=== PATIENT | female | born 1970 | race Caucasian/White ===

== ENCOUNTER → 2016-11-09 | Outpatient (CLI) | payer OTHER | END | disposition home or self-care (01) | LOC: LABWHC1 15:41 | PROVIDERS: ATTEND Nurse Practitioner Family | DX: Z51.81 Encounter for therapeutic drug level monitoring (principal); Z79.899 Other long term (current) drug therapy | CPT/HCPCS: 36415; 84146 ==

== ENCOUNTER → 2017-02-26 | Outpatient (CLI) | payer OTHER ==
--- NOTE | 2017-02-26 17:44 | CT ---
EXAMINATION TYPE: CT abdomen pelvis w con DATE OF EXAM: 02/26/2017 5:35 PM COMPARISON: NONE HISTORY: Elevated liver enzymes and elevated prolactin levels. CT DLP: 1088.00 mGycm CONTRAST: CT scan of the abdomen and pelvis is performed with Oral Contrast and with IV Contrast, patient injec sally with 100 mL of Omnipaque 300. FINDINGS: LUNG BASES-: No visible nodule. No infiltrate. LIVER/GB: Cholecystectomy clips are in place. No space occupying hepatic lesion. Biliary tree is o f normal caliber. PANCREAS: No inflammation. No distinct mass. SPLEEN: No splenic enlargement. No lesion seen. ADRENALS: No nodule. No thickening. KIDNEYS/BLADDER: No hydronephrosis. No nephrolithiasis. No disctinct renal mass. Urinary bladder g rossly unremarkable. BOWEL: Normal appendix. Normal bowel caliber. No inflammation. GENITAL ORGANS: No gross abnormality. LYMPH NODES: No greater than 1cm abdominal or pelvic lymph nodes are appreciated. AORTA: No significant abnormality. OSSEOUS STRUCTURES: No significant abnormality is seen. OTHER: Fat-containing left inguinal hernia. IMPRESSION: 1. No significant abnormality to account for the patient's symptoms.
== END ==
LOC: RADCTMAIN 15:23
PROVIDERS: ATTEND Family Medicine
DX: R74.8 Abnormal levels of other serum enzymes (principal); E22.9 Hyperfunction of pituitary gland, unspecified
CPT/HCPCS: 80156; 74177; 36415; Q9967

== ENCOUNTER → 2017-06-21 | Outpatient (CLI) | payer OTHER | END | disposition home or self-care (01) | LOC: LABWHC1 13:07 | PROVIDERS: ATTEND Nurse Practitioner Family | DX: Z51.81 Encounter for therapeutic drug level monitoring (principal); Z79.899 Other long term (current) drug therapy | CPT/HCPCS: 36415; 84146 ==

== ENCOUNTER 2018-02-20 09:58 | Emergency (ER) | payer OTHER ==
[2018-02-20 10:06] VITALS: BP 152/73; PULSE 80; RESP 18; TEMP 97.2
--- NOTE | 2018-02-20 10:32 | ED ---
Fall HPI - General Chief Complaint: Fall Stated Complaint: Fall Time Seen by Provider: 02/20/18 10:10 Source: patient Mode of arrival: EMS - History of Present Illness Initial Comments: This is a 47-year-old female who states she tripped and fell on a sidewalk just prior to admission. She complains of pain to the right knee but no other injury she denies any head neck or back pain at this time. She thought she may have hit her right elbow but complains no pain right now. She also complains not being able sleep well she states her medications were recently changed at [facility] she's not been able to get a hold of a counselor. She denies any head neck back pain or other symptoms at this time no other contributory factors. MD Complaint: fall - Related Data Home Medications Medication Instructions Recorded Confirmed risperiDONE 2 mg PO HS 06/06/16 02/20/18 risperiDONE 3 mg PO QAM 06/06/16 02/20/18 traZODone HCL 300 mg PO HS 06/06/16 02/20/18 Albuterol Inhaler [Ventolin Hfa 1 - 2 puff INHALATION RT-QID PRN 02/20/18 Inhaler] Bromocriptine Mesylate 2.5 mg PO HS 02/20/18 02/20/18 Lisinopril [Zestril] 10 mg PO DAILY 02/20/18 02/20/18 Oxybutynin Xl [Ditropan Xl] 5 mg PO BID 02/20/18 02/20/18 carBAMazepine [carBAMazepine ER] 300 mg PO BID 02/20/18 02/20/18 Previous Rx's Medication Instructions Recorded Ibuprofen [Motrin] 600 mg PO Q6HR PRN #20 tab 02/20/18 Allergies Allergy/AdvReac Type Severity Reaction Status Date / Time acetaminophen [From Tylenol] Allergy Rash/Hives Verified 02/20/18 10:13 Penicillins Allergy Rash/Hives Verified 02/20/18 10:13 Review of Systems ROS Statement: Those systems with pertinent positive or pertinent negative responses have been documented in the HPI. ROS Other: All systems not noted in ROS Statement are negative. Past Medical History Past Medical History: Asthma History of Any Multi-Drug Resistant Organisms: None Reported Past Surgical History: Section Past Psychological History: Schizophrenia Smoking Status: Current every day smoker Past Alcohol Use History: None Reported Past Drug Use History: None Reported General Exam - General Exam Comments Initial Comments: This is a well-developed well-nourished awake alert oriented 3 female she does demonstrate a Phil Coma Scale of 15 Limitations: no limitations General appearance: alert, anxious Head exam: Present: atraumatic, normocephalic, normal inspection Eye exam: Present: normal appearance, PERRL, EOMI. Absent: scleral icterus, conjunctival injection, periorbital swelling ENT exam: Present: normal exam, mucous membranes moist Neck exam: Present: normal inspection. Absent: tenderness, meningismus, lymphadenopathy Respiratory exam: Absent: respiratory distress, wheezes, rales, rhonchi, stridor , chest wall tenderness Cardiovascular Exam: Absent: systolic murmur, diastolic murmur, rubs, gallop, clicks GI/Abdominal exam: Absent: distended, tenderness, guarding, rebound, rigid Extremities exam: Present: full ROM, tenderness, normal capillary refill, other (Abrasion seen over the right patella no formed by seen some localized edema noted. No trauma proximal or distal to this area.). Absent: pedal edema, joint swelling, calf tenderness Back exam: Present: full ROM. Absent: tenderness Neurological exam: Present: alert, oriented X3, CN II-XII intact Psychiatric exam: Present: normal affect, anxious Skin exam: Present: warm, dry, normal color. Absent: rash Course Vital Signs 02/20/18 10:00 Temperature 97.2 F L Pulse Rate 80 Respiratory 18 Rate Blood Pressure 152/73 O2 Sat by Pulse 96 Oximetry Medical Decision Making - Medical Decision Making The patient will have a dressing applied to the knee no further workup is indicated she'll be discharged shots are up-to-date she had her last one about 2 years ago. She is to follow-up with [facility] for medication evaluation - Radiology Data Radiology results: report reviewed (I did review the imaging and report no acute findings.), image reviewed Disposition Clinical Impression: Abrasion of knee, right, Contusion of knee, right, Fall Disposition: HOME SELF-CARE Condition: Good Instructions: Fall Prevention for Older Adults (ED), Abrasion (ED), Contusion in Adults (ED) Prescriptions: Ibuprofen [Motrin] 600 mg PO Q6HR PRN #20 tab PRN Reason: Pain Is patient prescribed a controlled substance at discharge?: No Referrals: Jack Dao MD [Primary Care Provider] - 1-2 days
--- NOTE | 2018-02-20 10:48 | XR ---
Right knee HISTORY: Abrasion, trauma and pain 4 views of the right knee Bone mineralization, joint spaces and alignment are maintained. Suprapatellar increased density could represent a small effusion. Suspect soft tissue swelling. IMPRESSION: No fracture or dislocation.
== END 2018-02-20 11:37 | disposition home or self-care (01) ==
LOC: EC 09:58
DX: S80.01XA Contusion of right knee, initial encounter (principal); R40.2412 Glasgow coma scale score 13-15, at arrival to emergency department; F41.9 Anxiety disorder, unspecified; F20.9 Schizophrenia, unspecified; F17.200 Nicotine dependence, unspecified, uncomplicated; Z79.899 Other long term (current) drug therapy; Z88.0 Allergy status to penicillin; Z88.8 Allergy status to other drugs, medicaments and biological substances; W01.0XXA Fall on same level from slipping, tripping and stumbling without subsequent striking against object, initial encounter; Y92.480 Sidewalk as the place of occurrence of the external cause
CPT/HCPCS: 99283

== ENCOUNTER 2018-05-15 12:17 | Emergency (ER) | payer OTHER ==
--- NOTE | 2018-05-15 12:59 | ED ---
General Adult HPI - General Chief complaint: Anxiety Stated complaint: Anxiety Time Seen by Provider: 05/15/18 12:23 Source: patient, RN notes reviewed Mode of arrival: EMS Limitations: no limitations - History of Present Illness Initial comments: Patient 47-year-old female significant past medical history for bipolar, presented to the emergency room today by EMS for anxiety. She states that she was waiting for her boyfriend to get out of a meeting. She states that also and she felt increased warmth and was crying. Patient states she feels fine at this time. She states that she was not upset anybody. Patient boyfriend at bedside providing further history stating that she has been having symptoms similar to this off and on now for several months. They have been trying to talk to [facility] about this. Patient denies any suicidal or homicidal thoughts or plans. She denies any other complaints currently. She states she feels complete fine at this time. Boyfriend states unsure if it's related to medications that they need to be adjusted. States that they would like to have psych evaluation. Patient denies any recent fever, chills, shortness of breath , chest pain, back pain, abdominal pain, nausea or vomiting, numbness or tingling, dysuria or hematuria, constipation or diarrhea, headaches or visual changes, or any other complaints. - Related Data Home Medications Medication Instructions Recorded Confirmed risperiDONE 2 mg PO HS 06/06/16 05/15/18 risperiDONE 3 mg PO QAM 06/06/16 05/15/18 traZODone HCL 300 mg PO HS 06/06/16 05/15/18 Albuterol Inhaler [Ventolin Hfa 1 - 2 puff INHALATION RT-QID PRN 02/20/18 Inhaler] Bromocriptine Mesylate 5 mg PO HS 02/20/18 05/15/18 Lisinopril [Zestril] 10 mg PO DAILY 02/20/18 05/15/18 Oxybutynin Xl [Ditropan Xl] 5 mg PO BID 02/20/18 05/15/18 Allergies Allergy/AdvReac Type Severity Reaction Status Date / Time acetaminophen [From Tylenol] Allergy Rash/Hives Verified 05/15/18 12:41 Penicillins Allergy Rash/Hives Verified 05/15/18 12:41 Review of Systems ROS Statement: Those systems with pertinent positive or pertinent negative responses have been documented in the HPI. ROS Other: All systems not noted in ROS Statement are negative. Past Medical History Past Medical History: Asthma History of Any Multi-Drug Resistant Organisms: None Reported Past Surgical History: Section Past Psychological History: Bipolar, Schizophrenia Smoking Status: Current every day smoker Past Alcohol Use History: None Reported Past Drug Use History: None Reported General Exam - General Exam Comments Initial Comments: General: The patient is awake and alert, in no distress, and does not appear acutely ill. Eye: Pupils are equal, round and reactive to light, extra-ocular movements are intact. No nystagmus. There is normal conjunctiva bilaterally. No signs of icterus. Ears, nose, mouth and throat: There are moist mucous membranes and no oral lesions. Neck: The neck is supple, there is no tenderness or JVD. Cardiovascular: There is a regular rate and rhythm. No murmur, rub or gallop is appreciated. Respiratory: Lungs are clear to auscultation, respirations are non-labored, breath sounds are equal. No wheezes, stridor, rales, or rhonchi. Musculoskeletal: Normal ROM, no tenderness. Strength 5/5. Sensation intact. Pulses equal bilaterally 2+. Neurological: A&O x 3. CN II-XII intact, There are no obvious motor or sensory deficits. Coordination appears grossly intact. Speech is normal. Skin: Skin is warm and dry and no rashes or lesions are noted. Psychiatric: Cooperative Limitations: no limitations Course Vital Signs 05/15/18 12:24 Pulse Rate 57 L Respiratory 18 Rate Blood Pressure 111/58 O2 Sat by Pulse 95 Oximetry Medical Decision Making - Medical Decision Making Patient's labs been reviewed. Patient was seen by mental health here in emergency room. They recommend that patient can follow up outpatient. Patient advised to return for any other concerns. - Lab Data Result diagrams: 05/15/18 13:20 05/15/18 13:20 Lab Results 05/15/18 05/15/18 05/15/18 Range/Units 13:13 13:13 13:20 WBC 7.3 (3.8-10.6) k/uL RBC 4.41 (3.80-5.40) m/uL Hgb 14.7 (11.4-16.0) gm/dL Hct 43.8 (34.0-46.0) % MCV 99.4 (80.0-100.0) fL MCH 33.3 (25.0-35.0) pg MCHC 33.5 (31.0-37.0) g/dL RDW 13.2 (11.5-15.5) % Plt Count 230 (150-450) k/uL Neutrophils % 67 % Lymphocytes % 24 % Monocytes % 6 % Eosinophils % 2 % Basophils % 0 % Neutrophils # 4.9 (1.3-7.7) k/uL Lymphocytes # 1.7 (1.0-4.8) k/uL Monocytes # 0.4 (0-1.0) k/uL Eosinophils # 0.1 (0-0.7) k/uL Basophils # 0.0 (0-0.2) k/uL Sodium (137-145) mmol/L Potassium (3.5-5.1) mmol/L Chloride (98-107) mmol/L Carbon Dioxide (22-30) mmol/L Anion Gap mmol/L BUN (7-17) mg/dL Creatinine (0.52-1.04) mg/dL Est GFR (CKD-EPI)AfAm (>60 ml/min/1.73 sqM) Est GFR (CKD-EPI)NonAf (>60 ml/min/1.73 sqM) Glucose (74-99) mg/dL Calcium (8.4-10.2) mg/dL Total Bilirubin (0.2-1.3) mg/dL AST (14-36) U/L ALT (9-52) U/L Alkaline Phosphatase (38-126) U/L Total Protein (6.3-8.2) g/dL Albumin (3.5-5.0) g/dL Urine Color Light Yellow Urine Appearance Cloudy H (Clear) Urine pH 6.0 (5.0-8.0) Ur Specific [place] 1.007 (1.001-1.035) Urine Protein Negative (Negative) Urine Glucose (UA) Negative (Negative) Urine Ketones Negative (Negative) Urine Blood Small H (Negative) Urine Nitrite Negative (Negative) Urine Bilirubin Negative (Negative) Urine Urobilinogen <2.0 (<2.0) mg/dL Ur Leukocyte Esterase Negative (Negative) Urine RBC <1 (0-5) /hpf Urine WBC 2 (0-5) /hpf Ur Squamous Epith Cells 5 H (0-4) /hpf Urine Bacteria Rare H (None) /hpf Urine Mucus Rare H (None) /hpf Urine HCG, Qual Not Detected (Not Detectd) Urine Opiates Screen Not Detected (NotDetected) Ur Oxycodone Screen Not Detected (NotDetected) Urine Methadone Screen Not Detected (NotDetected) Ur Propoxyphene Screen Not Detected (NotDetected) Ur Barbiturates Screen Not Detected (NotDetected) U Tricyclic Antidepress Not Detected (NotDetected) Ur Phencyclidine Scrn Not Detected (NotDetected) Ur Amphetamines Screen Not Detected (NotDetected) U Methamphetamines Scrn Not Detected (NotDetected) U Benzodiazepines Scrn Not Detected (NotDetected) Urine Cocaine Screen Not Detected (NotDetected) U Marijuana (THC) Screen Not Detected (NotDetected) 05/15/18 Range/Units 13:20 WBC (3.8-10.6) k/uL RBC (3.80-5.40) m/uL Hgb (11.4-16.0) gm/dL Hct (34.0-46.0) % MCV (80.0-100.0) fL MCH (25.0-35.0) pg MCHC (31.0-37.0) g/dL RDW (11.5-15.5) % Plt Count (150-450) k/uL Neutrophils % % Lymphocytes % % Monocytes % % Eosinophils % % Basophils % % Neutrophils # (1.3-7.7) k/uL Lymphocytes # (1.0-4.8) k/uL Monocytes # (0-1.0) k/uL Eosinophils # (0-0.7) k/uL Basophils # (0-0.2) k/uL Sodium 138 (137-145) mmol/L Potassium 4.4 (3.5-5.1) mmol/L Chloride 111 H (98-107) mmol/L Carbon Dioxide 20 L (22-30) mmol/L Anion Gap 7 mmol/L BUN 12 (7-17) mg/dL Creatinine 0.80 (0.52-1.04) mg/dL Est GFR (CKD-EPI)AfAm >90 (>60 ml/min/1.73 sqM) Est GFR (CKD-EPI)NonAf 88 (>60 ml/min/1.73 sqM) Glucose 100 H (74-99) mg/dL Calcium 9.2 (8.4-10.2) mg/dL Total Bilirubin 0.3 (0.2-1.3) mg/dL AST 16 (14-36) U/L ALT 25 (9-52) U/L Alkaline Phosphatase 62 (38-126) U/L Total Protein 6.5 (6.3-8.2) g/dL Albumin 4.1 (3.5-5.0) g/dL Urine Color Urine Appearance (Clear) Urine pH (5.0-8.0) Ur Specific [place] (1.001-1.035) Urine Protein (Negative) Urine Glucose (UA) (Negative) Urine Ketones (Negative) Urine Blood (Negative) Urine Nitrite (Negative) Urine Bilirubin (Negative) Urine Urobilinogen (<2.0) mg/dL Ur Leukocyte Esterase (Negative) Urine RBC (0-5) /hpf Urine WBC (0-5) /hpf Ur Squamous Epith Cells (0-4) /hpf Urine Bacteria (None) /hpf Urine Mucus (None) /hpf Urine HCG, Qual (Not Detectd) Urine Opiates Screen (NotDetected) Ur Oxycodone Screen (NotDetected) Urine Methadone Screen (NotDetected) Ur Propoxyphene Screen (NotDetected) Ur Barbiturates Screen (NotDetected) U Tricyclic Antidepress (NotDetected) Ur Phencyclidine Scrn (NotDetected) Ur Amphetamines Screen (NotDetected) U Methamphetamines Scrn (NotDetected) U Benzodiazepines Scrn (NotDetected) Urine Cocaine Screen (NotDetected) U Marijuana (THC) Screen (NotDetected) Disposition Clinical Impression: Acute anxiety Disposition: HOME SELF-CARE Condition: Good Instructions: Generalized Anxiety Disorder (ED) Additional Instructions: Please follow-up with H/family doctor in the next 2 days of symptoms have not improved. Please return to emergency room if the symptoms increase or worsen or for any other concerns. Is patient prescribed a controlled substance at d/c from ED?: No Referrals: Jack Dao MD [Primary Care Provider] - 1-2 days Time of Disposition: 16:36
[2018-05-15 13:23] LABS: Appearance,Urine Cloudy (Clear); Bacteria,Urine Rare /hpf; Bilirubin,Urine Negative (Negative); Blood,Urine Small (Negative); Color,Urine Light Yellow; Glucose,Urine (UA) Negative (Negative); Ketones,Urine Negative (Negative); Leukocyte Esterase,Urine Negative (Negative); Mucus,Urine Rare /hpf; Nitrite,Urine Negative (Negative); Protein,Urine Negative (Negative); RBC,Urine <1 /hpf (0-5); Specific Gravity,Urine 1.007 (1.001-1.035); Squamous Epithelial Cell,Urine 5 /hpf (0-4); Urobilinogen,Urine <2.0 mg/dL (<2.0); WBC,Urine 2 /hpf (0-5)
[2018-05-15 13:31] LABS: Amphetamine Screen,Urine Not Detected (NotDetected); Barbiturate Screen,Urine Not Detected (NotDetected); Benzodiazepines Screen,Urine Not Detected (NotDetected); Cocaine Screen,Urine Not Detected (NotDetected); Methadone Screen, Urine Not Detected (NotDetected); Opiate Screen,Urine Not Detected (NotDetected); Oxycodone Screen, Urine Not Detected (NotDetected); Phencyclidine Screen,Urine Not Detected (NotDetected); Tricyclic Antidepressant,Urine Not Detected (NotDetected); Urn Cannabinoid Scrn Not Detected (NotDetected)
[2018-05-15 13:33] LABS: Basophils % (A) 0 %; Eosinophils # (A) 0.1 k/uL (0-0.7); Eosinophils % (A) 2 %; HCT 43.8 % (34.0-46.0); HGB 14.7 gm/dL (11.4-16.0); Lymphocytes # (A) 1.7 k/uL (1.0-4.8); Lymphocytes % (A) 24 %; MCH 33.3 pg (25.0-35.0); MCHC 33.5 g/dL (31.0-37.0); MCV 99.4 fL (80.0-100.0); Mean Platelet Volume 6.8; Monocytes # (A) 0.4 k/uL (0-1.0); Monocytes % (A) 6 %; Neutrophils # (A) 4.9 k/uL (1.3-7.7); Neutrophils % (A) 67 %; Platelet Count 230 k/uL (150-450); RBC 4.41 m/uL (3.80-5.40); RDW 13.2 % (11.5-15.5); WBC 7.3 k/uL (3.8-10.6)
[2018-05-15 13:52] LABS: Anion Gap 7 mmol/L; Blood Urea Nitrogen 12 mg/dL (7-17); Carbon Dioxide 20 mmol/L (22-30); Chloride 111 mmol/L (98-107); Glucose 100 mg/dL (74-99); Potassium 4.4 mmol/L (3.5-5.1); Sodium 138 mmol/L (137-145)
[2018-05-15 13:53] LABS: ALT 25 U/L (9-52); AST 16 U/L (14-36); Albumin 4.1 g/dL (3.5-5.0); Alkaline Phosphatase 62 U/L (38-126); Calcium 9.2 mg/dL (8.4-10.2); Total Bilirubin 0.3 mg/dL (0.2-1.3); Total Protein 6.5 g/dL (6.3-8.2)
[2018-05-15 16:59] VITALS: BP 135/63; PULSE 69; RESP 16; TEMP 97
== END 2018-05-15 17:00 | disposition home or self-care (01) ==
LOC: EC 12:17
DX: F41.9 Anxiety disorder, unspecified (principal); F31.9 Bipolar disorder, unspecified; F20.9 Schizophrenia, unspecified; J45.909 Unspecified asthma, uncomplicated; F17.200 Nicotine dependence, unspecified, uncomplicated; Z79.899 Other long term (current) drug therapy; Z88.0 Allergy status to penicillin; Z88.8 Allergy status to other drugs, medicaments and biological substances
CPT/HCPCS: 36415; 80053; 80306; 81001; 81025; 82075; 85025; 93005; 99284

== ENCOUNTER 2018-07-03 17:30 | Emergency (ER) | payer OTHER ==
[2018-07-03 17:39] VITALS: RESP 18
[2018-07-03 18:07] LABS: Basophils % (A) 0 %; Eosinophils # (A) 0.2 k/uL (0-0.7); Eosinophils % (A) 2 %; HCT 43.3 % (34.0-46.0); HGB 14.3 gm/dL (11.4-16.0); Lymphocytes # (A) 2.3 k/uL (1.0-4.8); Lymphocytes % (A) 29 %; MCH 32.3 pg (25.0-35.0); MCHC 33.1 g/dL (31.0-37.0); MCV 97.6 fL (80.0-100.0); Mean Platelet Volume 6.8; Monocytes # (A) 0.3 k/uL (0-1.0); Monocytes % (A) 4 %; Neutrophils # (A) 4.9 k/uL (1.3-7.7); Neutrophils % (A) 63 %; Platelet Count 267 k/uL (150-450); RBC 4.43 m/uL (3.80-5.40); RDW 12.8 % (11.5-15.5); WBC 7.8 k/uL (3.8-10.6)
[2018-07-03 18:15] LABS: INR 1.1 (<1.2); Prothrombin Time 10.5 sec (9.0-12.0)
[2018-07-03 18:19] LABS: ALT 33 U/L (9-52); AST 29 U/L (14-36); Albumin 4.1 g/dL (3.5-5.0); Alkaline Phosphatase 63 U/L (38-126); Anion Gap 9 mmol/L; Blood Urea Nitrogen 11 mg/dL (7-17); Carbon Dioxide 24 mmol/L (22-30); Chloride 107 mmol/L (98-107); Glucose 96 mg/dL (74-99); Magnesium 2.1 mg/dL (1.6-2.3); Potassium 3.8 mmol/L (3.5-5.1); Sodium 140 mmol/L (137-145); Total Bilirubin 0.4 mg/dL (0.2-1.3); Total Protein 6.9 g/dL (6.3-8.2)
[2018-07-03 18:25] LABS: Creatine Kinase 129 U/L (30-135)
[2018-07-03 18:36] LABS: Creatine Kinase MB 1.4 ng/mL (0.0-2.4); Troponin I <0.012 ng/mL (0.000-0.034)
--- NOTE | 2018-07-03 19:36 | ED ---
General Adult HPI - General Chief complaint: Chest Pain Stated complaint: chest pain Time Seen by Provider: 07/03/18 19:17 Source: patient, RN notes reviewed, old records reviewed Mode of arrival: EMS Limitations: no limitations - History of Present Illness Initial comments: This is a [id number] female the ER today. This patient presents today for evaluation regards to chest pain. Patient admits to chest pain after stressful event. Patient argument with boyfriend her today, patient states she is Very stressed out and began to experience chest pain. No shortness of breath no nausea vomiting no diaphoresis. No prior history of similar chest pain or heart disease - Related Data Home Medications Medication Instructions Recorded Confirmed risperiDONE 2 mg PO HS 06/06/16 05/15/18 risperiDONE 3 mg PO QAM 06/06/16 05/15/18 traZODone HCL 300 mg PO HS 06/06/16 05/15/18 Albuterol Inhaler [Ventolin Hfa 1 - 2 puff INHALATION RT-QID PRN 02/20/18 Inhaler] Bromocriptine Mesylate 5 mg PO HS 02/20/18 05/15/18 Lisinopril [Zestril] 10 mg PO DAILY 02/20/18 05/15/18 Oxybutynin Xl [Ditropan Xl] 5 mg PO BID 02/20/18 05/15/18 Allergies Allergy/AdvReac Type Severity Reaction Status Date / Time acetaminophen [From Tylenol] Allergy Rash/Hives Verified 07/03/18 17:39 Penicillins Allergy Rash/Hives Verified 07/03/18 17:39 Review of Systems ROS Statement: Those systems with pertinent positive or pertinent negative responses have been documented in the HPI. ROS Other: All systems not noted in ROS Statement are negative. Past Medical History Past Medical History: Asthma History of Any Multi-Drug Resistant Organisms: None Reported Past Surgical History: Section Past Psychological History: Bipolar, Schizophrenia Smoking Status: Current every day smoker Past Alcohol Use History: None Reported Past Drug Use History: None Reported General Exam Limitations: no limitations General appearance: alert, in no apparent distress Head exam: Present: atraumatic, normocephalic, normal inspection Eye exam: Present: normal appearance, PERRL, EOMI. Absent: scleral icterus, conjunctival injection, periorbital swelling ENT exam: Present: normal exam, mucous membranes moist Neck exam: Present: normal inspection. Absent: tenderness, meningismus, lymphadenopathy Respiratory exam: Present: normal lung sounds bilaterally. Absent: respiratory distress, wheezes, rales, rhonchi, stridor Cardiovascular Exam: Present: regular rate, normal rhythm, normal heart sounds. Absent: systolic murmur, diastolic murmur, rubs, gallop, clicks GI/Abdominal exam: Present: soft, normal bowel sounds. Absent: distended, tenderness, guarding, rebound, rigid Extremities exam: Present: normal inspection, full ROM, normal capillary refill. Absent: tenderness, pedal edema, joint swelling, calf tenderness Back exam: Present: normal inspection Neurological exam: Present: alert, oriented X3, CN II-XII intact Psychiatric exam: Present: normal affect, normal mood Skin exam: Present: warm, dry, intact, normal color. Absent: rash Course Vital Signs 07/03/18 17:37 Temperature 98.2 F Pulse Rate 61 Respiratory 18 Rate Blood Pressure 121/66 O2 Sat by Pulse 95 Oximetry - Reevaluation(s) Reevaluation #1: 07/03/18 19:35 Patient states symptoms are resolved EKG Findings - EKG Comments: EKG Findings:: EKG shows sinus rhythm at 60, ID 162, QRS 96, QTc 444 Medical Decision Making - Medical Decision Making 47 female nonspecific chest pain anxiety and grief reaction. Patient can be discharged home - Lab Data Result diagrams: 07/03/18 17:50 07/03/18 17:50 Lab Results 07/03/18 07/03/18 07/03/18 Range/Units 17:50 17:50 17:50 WBC 7.8 (3.8-10.6) k/uL RBC 4.43 (3.80-5.40) m/uL Hgb 14.3 (11.4-16.0) gm/dL Hct 43.3 (34.0-46.0) % MCV 97.6 (80.0-100.0) fL MCH 32.3 (25.0-35.0) pg MCHC 33.1 (31.0-37.0) g/dL RDW 12.8 (11.5-15.5) % Plt Count 267 (150-450) k/uL Neutrophils % 63 % Lymphocytes % 29 % Monocytes % 4 % Eosinophils % 2 % Basophils % 0 % Neutrophils # 4.9 (1.3-7.7) k/uL Lymphocytes # 2.3 (1.0-4.8) k/uL Monocytes # 0.3 (0-1.0) k/uL Eosinophils # 0.2 (0-0.7) k/uL Basophils # 0.0 (0-0.2) k/uL PT (9.0-12.0) sec INR (<1.2) APTT (22.0-30.0) sec Sodium 140 (137-145) mmol/L Potassium 3.8 (3.5-5.1) mmol/L Chloride 107 (98-107) mmol/L Carbon Dioxide 24 (22-30) mmol/L Anion Gap 9 mmol/L BUN 11 (7-17) mg/dL Creatinine 0.83 (0.52-1.04) mg/dL Est GFR (CKD-EPI)AfAm >90 (>60 ml/min/1.73 sqM) Est GFR (CKD-EPI)NonAf 85 (>60 ml/min/1.73 sqM) Glucose 96 (74-99) mg/dL Calcium 9.0 (8.4-10.2) mg/dL Magnesium 2.1 (1.6-2.3) mg/dL Total Bilirubin 0.4 (0.2-1.3) mg/dL AST 29 (14-36) U/L ALT 33 (9-52) U/L Alkaline Phosphatase 63 (38-126) U/L Total Creatine Kinase 129 (30-135) U/L CK-MB (CK-2) 1.4 (0.0-2.4) ng/mL CK-MB (CK-2) Rel Index 1.1 Troponin I <0.012 (0.000-0.034) ng/mL Total Protein 6.9 (6.3-8.2) g/dL Albumin 4.1 (3.5-5.0) g/dL 07/03/18 Range/Units 17:50 WBC (3.8-10.6) k/uL RBC (3.80-5.40) m/uL Hgb (11.4-16.0) gm/dL Hct (34.0-46.0) % MCV (80.0-100.0) fL MCH (25.0-35.0) pg MCHC (31.0-37.0) g/dL RDW (11.5-15.5) % Plt Count (150-450) k/uL Neutrophils % % Lymphocytes % % Monocytes % % Eosinophils % % Basophils % % Neutrophils # (1.3-7.7) k/uL Lymphocytes # (1.0-4.8) k/uL Monocytes # (0-1.0) k/uL Eosinophils # (0-0.7) k/uL Basophils # (0-0.2) k/uL PT 10.5 (9.0-12.0) sec INR 1.1 (<1.2) APTT 23.0 (22.0-30.0) sec Sodium (137-145) mmol/L Potassium (3.5-5.1) mmol/L Chloride (98-107) mmol/L Carbon Dioxide (22-30) mmol/L Anion Gap mmol/L BUN (7-17) mg/dL Creatinine (0.52-1.04) mg/dL Est GFR (CKD-EPI)AfAm (>60 ml/min/1.73 sqM) Est GFR (CKD-EPI)NonAf (>60 ml/min/1.73 sqM) Glucose (74-99) mg/dL Calcium (8.4-10.2) mg/dL Magnesium (1.6-2.3) mg/dL Total Bilirubin (0.2-1.3) mg/dL AST (14-36) U/L ALT (9-52) U/L Alkaline Phosphatase (38-126) U/L Total Creatine Kinase (30-135) U/L CK-MB (CK-2) (0.0-2.4) ng/mL CK-MB (CK-2) Rel Index Troponin I (0.000-0.034) ng/mL Total Protein (6.3-8.2) g/dL Albumin (3.5-5.0) g/dL - Radiology Data Radiology results: report reviewed (Chest x-rays negative for acute disease), image reviewed Disposition Clinical Impression: Chest pain, Anxiety Disposition: HOME SELF-CARE Condition: Good Instructions: Chest Pain (ED) Is patient prescribed a controlled substance at d/c from ED?: No Referrals: Jack Dao MD [Primary Care Provider] - 1-2 days
[2018-07-03 19:45] VITALS: BP 160/71; PULSE 59; TEMP 97.9
== END 2018-07-03 19:45 | disposition home or self-care (01) ==
LOC: EC 17:30
DX: R07.9 Chest pain, unspecified (principal); F41.9 Anxiety disorder, unspecified; F43.9 Reaction to severe stress, unspecified; J45.909 Unspecified asthma, uncomplicated; F31.9 Bipolar disorder, unspecified; F20.9 Schizophrenia, unspecified; F17.200 Nicotine dependence, unspecified, uncomplicated; Z79.899 Other long term (current) drug therapy; Z88.0 Allergy status to penicillin; Z88.6 Allergy status to analgesic agent
CPT/HCPCS: 36415; 80053; 82550; 82553; 83735; 84484; 85025; 85610; 85730; 93005; 99285

== ENCOUNTER → 2018-11-17 | Outpatient (CLI) | payer OTHER ==
[2018-11-17 12:40] LABS: Basophils % (A) 1 %; Eosinophils # (A) 0.1 k/uL (0-0.7); Eosinophils % (A) 2 %; HCT 46.8 % (34.0-46.0); HGB 14.9 gm/dL (11.4-16.0); Lymphocytes # (A) 1.8 k/uL (1.0-4.8); Lymphocytes % (A) 24 %; MCHC 31.8 g/dL (31.0-37.0); MCV 97.3 fL (80.0-100.0); Mean Platelet Volume 6.3; Monocytes # (A) 0.4 k/uL (0-1.0); Monocytes % (A) 5 %; Neutrophils % (A) 67 %; Platelet Count 271 k/uL (150-450); RBC 4.81 m/uL (3.80-5.40); RDW 13.3 % (11.5-15.5); WBC 7.5 k/uL (3.8-10.6)
[2018-11-17 15:55] LABS: ALT 26 U/L (8-44); AST 25 U/L (13-35); Albumin/Globulin Ratio 2.35 (1.20-2.10); Alkaline Phosphatase 76 U/L (41-126); Bilirubin, Conjugated <0.20 mg/dL (0.20-0.40); Cholesterol 172 mg/dL (0-200); Glucose 113 mg/dL (70-110); LDL Cholesterol,Calculated 81.6 mg/dL (0.0-131.0); Total Bilirubin 0.4 mg/dL (0.3-1.2); Total Protein 6.7 g/dL (6.2-8.2)
[2018-11-17 22:16] LABS: Hemoglobin A1C 5.9 % (4.0-6.0)
== END ==
LOC: LABWHC1 11:59
PROVIDERS: ATTEND Nurse Practitioner Family
DX: Z51.81 Encounter for therapeutic drug level monitoring (principal); Z79.899 Other long term (current) drug therapy
CPT/HCPCS: 36415; 80061; 80076; 82947; 83036; 84146; 84439; 84443; 85025

== ENCOUNTER 2019-01-22 17:22 | Emergency (ER) | payer OTHER ==
--- NOTE | 2019-01-22 17:38 | ED ---
General Adult HPI - General Source: RN notes reviewed <Abe Espinosa - Last Filed: 01/22/19 20:48> <Rubina Betancourt P - Last Filed: 01/22/19 21:37> - General Stated complaint: mental health Time Seen by Provider: 01/22/19 17:22 - History of Present Illness Initial comments: This is a 48-year-old female presents emergency Department via ambulance. Patient lives in a fdc and has a guardian but she doesn't want to live the fdc anymore and she wants to move in with her boyfriend's of the fdc wanted her evaluated and wanted some assistance with her refusal to want to live in a fdc. Patient denies any other complaints per patient denies suicidal or homicidal ideations. Patient denies any pain patient denies any difficulty breathing patient denies any fever. (Abe Espinosa) - Related Data Home Medications Medication Instructions Recorded Confirmed risperiDONE 2 mg PO HS 06/06/16 01/22/19 risperiDONE 3 mg PO [facility] 06/06/16 01/22/19 traZODone HCL 300 mg PO HS 06/06/16 01/22/19 Bromocriptine Mesylate 5 mg PO HS 02/20/18 01/22/19 Allergies Allergy/AdvReac Type Severity Reaction Status Date / Time acetaminophen [From Tylenol] Allergy Rash/Hives Verified 01/22/19 18:47 Penicillins Allergy Rash/Hives Verified 01/22/19 18:47 Review of Systems ROS Other: All systems not noted in ROS Statement are negative. <Abe Espinosa - Last Filed: 01/22/19 20:48> ROS Other: All systems not noted in ROS Statement are negative. <Rubina Betancourt P - Last Filed: 01/22/19 21:37> ROS Statement: Those systems with pertinent positive or pertinent negative responses have been documented in the HPI. Past Medical History Past Medical History: Asthma History of Any Multi-Drug Resistant Organisms: None Reported Past Surgical History: Section Past Psychological History: Bipolar, Schizophrenia Smoking Status: Current every day smoker Past Alcohol Use History: None Reported Past Drug Use History: None Reported <Abe Espinosa - Last Filed: 01/22/19 20:48> General Exam <Abe Espinosa - Last Filed: 01/22/19 20:48> - General Exam Comments Initial Comments: GENERAL: Patient is well-developed and well-nourished. Patient is nontoxic and well- hydrated and is in no acute distress. ENT: Neck is soft and supple. EYES: The sclera were anicteric and conjunctiva were pink and moist. Extraocular movements were intact and pupils were equal round and reactive to light. Eyelids were unremarkable. PULMONARY: Unlabored respirations. Good breath sounds bilaterally. No audible rales rhonchi or wheezing was noted. CARDIOVASCULAR: There is a regular rate and rhythm without any murmurs gallops or rubs. ABDOMEN: Soft and nontender with normal bowel sounds. No palpable organomegaly was noted. There is no palpable pulsatile mass. SKIN: Skin is clear with no lesions or rashes and otherwise unremarkable. NEUROLOGIC: Patient is alert and oriented 2. Cranial nerves II through XII are grossly intact. Motor and sensory are also intact. Normal speech, volume and content. Symmetrical smile. MUSCULOSKELETAL: Normal extremities with adequate strength and full range of motion. PSYCHIATRIC: Patient is very child like to his requesting to move out of her fdc and moving with her boyfriend (Abe Espinosa) Course Vital Signs 01/22/19 17:25 Temperature 97.4 F L Pulse Rate 75 Respiratory 20 Rate Blood Pressure 153/79 O2 Sat by Pulse 100 Oximetry Medical Decision Making <Abe Espinosa - Last Filed: 01/22/19 20:48> <Rubina Betancourt - Last Filed: 01/22/19 21:37> - Medical Decision Making Patient's care was taken over by Dr. Betancourt at 9 PM (Abe Espinosa) Guardian was in contact with mobile crisis unit who are willing to get the patient's belongings from her current [facility] home and move her to another facility tonight. Patient's nighttime medications were ordered. (Rubina Betancourt) - Lab Data Lab Results 01/22/19 Range/Units 17:52 Urine Opiates Screen Not Detected (NotDetected) Ur Oxycodone Screen Not Detected (NotDetected) Urine Methadone Screen Not Detected (NotDetected) Ur Propoxyphene Screen Not Detected (NotDetected) Ur Barbiturates Screen Not Detected (NotDetected) U Tricyclic Antidepress Not Detected (NotDetected) Ur Phencyclidine Scrn Not Detected (NotDetected) Ur Amphetamines Screen Not Detected (NotDetected) U Methamphetamines Scrn Not Detected (NotDetected) U Benzodiazepines Scrn Not Detected (NotDetected) Urine Cocaine Screen Not Detected (NotDetected) U Marijuana (THC) Screen Not Detected (NotDetected) Disposition <Abe Espinosa - Last Filed: 01/22/19 20:48> Is patient prescribed a controlled substance at d/c from ED?: No <Rubina Betancourt - Last Filed: 01/22/19 21:37> Clinical Impression: Agitated Disposition: HOME SELF-CARE Condition: Stable Instructions (If sedation given, give patient instructions): Depression (DC) Referrals: Jack Dao MD [Primary Care Provider] - 1-2 days
[2019-01-22 17:45] VITALS: BP 153/79; PULSE 75; RESP 20; TEMP 97.4
[2019-01-22 18:15] LABS: Amphetamine Screen,Urine Not Detected (NotDetected); Barbiturate Screen,Urine Not Detected (NotDetected); Benzodiazepines Screen,Urine Not Detected (NotDetected); Cocaine Screen,Urine Not Detected (NotDetected); Methadone Screen, Urine Not Detected (NotDetected); Opiate Screen,Urine Not Detected (NotDetected); Oxycodone Screen, Urine Not Detected (NotDetected); Phencyclidine Screen,Urine Not Detected (NotDetected); Tricyclic Antidepressant,Urine Not Detected (NotDetected); Urn Cannabinoid Scrn Not Detected (NotDetected)
[2019-01-22] MEDS ORDERED: risperiDONE 2 MG TAB PO SCH (22:00)
[2019-01-22] MEDS ORDERED: traZODone HCL 100 MG TAB PO SCH (22:00)
== END 2019-01-22 22:35 | disposition home or self-care (01) ==
LOC: EC 17:22 → EEVIPCON 17:22 → EC 22:35
DX: R45.1 Restlessness and agitation (principal); F31.9 Bipolar disorder, unspecified; F20.9 Schizophrenia, unspecified; F17.200 Nicotine dependence, unspecified, uncomplicated; Z79.899 Other long term (current) drug therapy; Z88.6 Allergy status to analgesic agent; Z88.0 Allergy status to penicillin
CPT/HCPCS: 80306; 82075; 99284

== ENCOUNTER 2019-01-29 10:41 | Emergency (ER) | payer OTHER ==
[2019-01-29 10:56] VITALS: BP 157/72; PULSE 87; RESP 20; TEMP 97.3
--- NOTE | 2019-01-29 10:58 | ED ---
Psych HPI - General Chief Complaint: Psychiatric Symptoms Stated Complaint: Mental health/needs meds Time Seen by Provider: 01/29/19 10:44 Source: patient, RN notes reviewed Mode of arrival: ambulatory Limitations: no limitations - History of Present Illness Initial Comments: 48-year-old female presents emergency Department with chief complaint of needing psychiatric medications. Patient has a history of schizoaffective/bipolar disorder. Patient has not been compliant with her medications. Patient states she needs her medications but claims at the pharmacy has them. Family are in the room states that she has been hypervigilant, not compliant. currently resides in a retirement. Denies being suicidal or homicidal. Denies any illicit drug use no alcohol abuse. - Related Data Home Medications Medication Instructions Recorded Confirmed risperiDONE 2 mg PO HS 06/06/16 01/29/19 risperiDONE 3 mg PO QAM 06/06/16 01/29/19 traZODone HCL 300 mg PO HS 06/06/16 01/29/19 Bromocriptine Mesylate 5 mg PO BID 02/20/18 01/29/19 Lisinopril [Zestril] 10 mg PO DAILY 01/29/19 01/29/19 Oxybutynin Chloride [Ditropan] 5 mg PO BID 01/29/19 01/29/19 Allergies Allergy/AdvReac Type Severity Reaction Status Date / Time acetaminophen [From Tylenol] Allergy Rash/Hives Verified 01/29/19 11:00 Penicillins Allergy Rash/Hives Verified 01/29/19 11:00 Review of Systems ROS Statement: Those systems with pertinent positive or pertinent negative responses have been documented in the HPI. ROS Other: All systems not noted in ROS Statement are negative. Past Medical History Past Medical History: Asthma History of Any Multi-Drug Resistant Organisms: None Reported Past Surgical History: Section Past Psychological History: Bipolar, Schizophrenia Smoking Status: Current every day smoker Past Alcohol Use History: None Reported Past Drug Use History: None Reported General Exam Limitations: no limitations General appearance: alert, in no apparent distress Head exam: Present: atraumatic, normocephalic, normal inspection Eye exam: Present: normal appearance, PERRL, EOMI. Absent: scleral icterus, conjunctival injection, periorbital swelling ENT exam: Present: normal exam, normal oropharynx, mucous membranes moist Neck exam: Present: normal inspection, full ROM. Absent: tenderness, meningismus, lymphadenopathy Respiratory exam: Present: normal lung sounds bilaterally. Absent: respiratory distress, wheezes, rales, rhonchi, stridor Cardiovascular Exam: Present: regular rate, normal rhythm, normal heart sounds. Absent: systolic murmur, diastolic murmur, rubs, gallop, clicks Neurological exam: Present: alert, oriented X3, CN II-XII intact Psychiatric exam: Present: anxious, manic Skin exam: Present: warm, dry, intact, normal color. Absent: rash Course Vital Signs 01/29/19 10:44 Temperature 97.3 F L Pulse Rate 87 Respiratory 20 Rate Blood Pressure 157/72 O2 Sat by Pulse 99 Oximetry Medical Decision Making - Medical Decision Making 48-year-old female presented emergency Department for psychiatric medications. Patient is not suicidal or homicidal. She is medically stable. She does have some mild anxiety issues. Patient's public guardian notified police because she has a warrant out for her arrest. Police are here to obtain patient. Patient will be discharged. Disposition Clinical Impression: Acute anxiety Disposition: HOME SELF-CARE Condition: Stable Instructions (If sedation given, give patient instructions): Mood Disorders (ED) Additional Instructions: Please return to the Emergency Department if symptoms worsen or any other concerns. Is patient prescribed a controlled substance at d/c from ED?: No Referrals: Jack Dao MD [Primary Care Provider] - 1-2 days Time of Disposition: 12:01
== END 2019-01-29 12:14 | disposition home or self-care (01) ==
LOC: EC 10:41
DX: F41.9 Anxiety disorder, unspecified (principal); F31.9 Bipolar disorder, unspecified; F20.9 Schizophrenia, unspecified; F17.200 Nicotine dependence, unspecified, uncomplicated; Z79.899 Other long term (current) drug therapy; Z88.0 Allergy status to penicillin; Z88.6 Allergy status to analgesic agent; Z91.14 Patient's other noncompliance with medication regimen
CPT/HCPCS: 82075; 99282

== ENCOUNTER → 2025-01-01 | Outpatient (CLI) | payer OTHER ==
--- NOTE | 2025-01-01 13:12 | CTL ---
EXAMINATION TYPE: CT Low Dose Lung DATE OF EXAM ORDERED: 01/01/2025 COMPARISON: Chest radiograph 11/19/2015 CLINICAL INDICATION: Female, 54 years old with history of PERSONAL HISTORY OF NICOTINE DEPENDENCE; PH H, Personal history of tobacco use, Lung cancer screening, History of Smoking/tobacco use. TECHNIQUE: Low dose computed tomography scan was performed through the chest at 1 mm thick sections a nd reconstructed images in multiple planes at 1 mm and [address] DLP: [address] CTDI: 2.83 mGy Automated exposure control for dose reduction was used. CT DIAGNOSTIC QUALITY: Satisfactory FINDINGS: Nodules: Few scattered pulmonary nodules with exams including a right upper lobe 3.7 mm pulmonary nodule (seri es 8, image 20). LUNGS: COPD: Severity: None Fibrosis: Severity: None Lymph nodes: None Other findings: Medial right middle lobe and lingular subsegmental atelectasis. Linear scarring and/o r atelectasis within the right lower lobe. RIGHT PLEURAL SPACE: Effusion: None Calcification: None Thickening: None Pneumothorax: None LEFT PLEURAL SPACE: Effusion: None Calcification: None Thickening: None Pneumothorax: None HEART: Heart Size: Normal Coronary Calcification: None Pericardial Effusion: None OTHER FINDINGS: Upper abdomen: None Bony thorax: Degenerative changes of the cervicothoracic spine. Supraclavicular region: None Other: None IMPRESSION: Few pulmonary nodules measuring less than [address] LUNG RAD AND CT CHEST RECOMMENDATION: Lung-Rad 2 Benign Appearance or Behavior: Continue annual sc reening with LDCT in 12 months. S Modifier (other clinically significant findings): None [facility], , 01/01/2025 1:10 PM
--- NOTE | 2025-01-01 13:15 | MM ---
Reason for Exam: Screening (asymptomatic). Last mammogram was performed 8 year(s) and 4 month(s) ago. Patient History: Menarche at age 18. First Full-Term at age 30. Late child-bearing (after 30). Risk Values: Bridget 5 year model risk: 1.4%. NCI Lifetime model risk: 10.4%. Prior Study Comparison: 08/08/2016 Bilateral Diagnostic Mammogram, [facility]. Tissue Density: The breasts are heterogeneously dense, which may obscure small masses. Findings: Analyzed By CAD. Right breast: There is no suspicious group of microcalcifications or new suspicious mass. Left breast: There is no suspicious group of microcalcifications or new suspicious mass. Overall Assessment: Negative, BI-RAD 1 Management: Screening Mammogram of both breasts in [address] [facility] will attempt to contact patient to return for supplemental views and ultrasound if indicated. Patient should continue monthly self-breast exams. A clinical breast exam by your physician is recommended on an annual basis. This exam should not preclude additional follow-up of suspicious palpable abnormalities. Note on Bridget scores and lifetime risk: 1. A Bridget score greater than 3% is considered moderate risk. If this is the case, consider specialist referral to assess eligibility for a risk reducing agent. 2. If overall lifetime risk for the development of breast cancer is 20% or higher, the patient may qualify for future screening with alternating mammogram and breast MRI. [facility], , 01/01/2025 1:13 PM. Electronically signed and approved by: Gianfranco Zuniga DO
== END | disposition home or self-care (01) ==
LOC: RADCTMAIN 12:43
PROVIDERS: ATTEND Family Medicine
DX: Z12.31 Encounter for screening mammogram for malignant neoplasm of breast (principal); Z12.2 Encounter for screening for malignant neoplasm of respiratory organs; R92.333 Mammographic heterogeneous density, bilateral breasts; R91.8 Other nonspecific abnormal finding of lung field; Z87.891 Personal history of nicotine dependence
CPT/HCPCS: 71271; 77063; 77067

== ENCOUNTER 2025-02-17 12:53 | Inpatient (IN) | payer OTHER ==
[2025-02-17] MEDS: IPRATROPIUM-ALBUTEROL 3 ML NEB INHALATION STA (13:26)
[2025-02-17] MEDS ORDERED: PNEUMONIA PROTOCOL UTILIZED 1 EACH MISC PO PRN (13:29)
[2025-02-17 13:37] LABS: VBG PH 7.33 (7.31-7.41)
[2025-02-17] MEDS: methylPREDNISolone SOD SUCCI 125 MG/2 ML VIAL IV STA (13:38)
[2025-02-17] MEDS: SODIUM CHLORIDE 0.9% 1,000 ML IV ONE (13:39)
[2025-02-17 13:40] LABS: HCT 34.9 % (37.2-46.3); HGB 11.9 g/dL (12.0-15.0); MCH 31.4 pg (27.0-32.0); MCHC 34.1 g/dL (32.0-37.0); MCV 92.1 fL (80.0-97.0); Mean Platelet Volume 9.9 fL (9.5-12.2); Platelet Count 444 10*3/uL (140-440); RBC 3.79 10*6/uL (4.10-5.20); RDW 12.8 % (11.5-14.5)
[2025-02-17 13:41] LABS: AST 74 U/L (14-36); African American GFR (CKD) >90 (>60 ml/min/1.73 sqM); Albumin 3.9 g/dL (3.5-5.0); Alkaline Phosphatase 301 U/L (38-126); Anion Gap 12 mmol/L; Blood Urea Nitrogen 14 mg/dL (7-17); Calcium 8.3 mg/dL (8.4-10.2); Carbon Dioxide 27 mmol/L (22-30); Chloride 87 mmol/L (98-107); Glucose 258 mg/dL (74-99); Magnesium 2.1 mg/dL (1.6-2.3); Non-African American GFR(CKD) >90 (>60 ml/min/1.73 sqM); Potassium 3.7 mmol/L (3.5-5.1); Sodium 126 mmol/L (137-145); Total Bilirubin 0.9 mg/dL (0.2-1.3); Total Protein 7.6 g/dL (6.3-8.2)
[2025-02-17] MEDS: MAGNESIUM SULFATE-D5W PMX 1 GM in DEXTROSE/WATER 1 100ML.BAG IVPB STA (13:45)
[2025-02-17 13:49] LABS: NT-Pro-B-Type Natriuretic Pept 2580 pg/mL
[2025-02-17 13:52] LABS: ALT 123 U/L (4-34)
--- NOTE | 2025-02-17 13:52 | XR ---
EXAMINATION TYPE: XR chest 1V portable DATE OF EXAM: 02/17/2025 1:25 PM COMPARISON: 11/19/2015 CLINICAL INDICATION: Female, 54 years old with history of SOB, , FINDINGS: Portable, semierect upright exam further limited by patient body habitus. Extensive hazy densities al [place] the mid to lower lungs probably largely related to overlying soft tissue. However, there appear t o be underlying interstitial densities and peribronchial opacities in the upper lungs. Heart borderli ne in size. IMPRESSION: Portable exam further limited by positioning and body habitus. There appear to be underlying intersti tial changes. Consider bronchitis, chronic asthma, atypical pneumonias, or mild pulmonary vascular co ngestion. If indicated, repeat high quality PA and lateral views can be considered. [facility], , 02/17/2025 1:49 PM
[2025-02-17 14:06] LABS: Influenza A Not Detected (Not Detectd); Influenza B Not Detected (Not Detectd); RSV Not Detected (Not Detectd)
--- NOTE | 2025-02-17 14:24 | ED ---
General Adult HPI - General Chief complaint: Shortness of Breath Stated complaint: SOB Time Seen by Provider: 02/17/25 13:01 Source: patient, family, RN notes reviewed, old records reviewed Mode of arrival: ambulatory Limitations: no limitations - History of Present Illness Initial comments: Patient is a 54-year-old female who presents emergency department complaining of shortness of breath for 2 days. Began experiencing worsening wheezing and shortness of breath on Saturday. Has a history of asthma as well as developmental delay and lives at a longterm. Saw her PCP and she was given a dose of steroids however she is continuing to worsen. Presents for further evaluation at this time. No cardiac history. Caregiver assists with her history. Patient states she is having a productive cough of green-yellow sputum. Denies any orthopnea or proximal muscle nocturnal dyspnea. No significant worsening of lower extremity swelling at all. No recent long distance travel. Patient was found to be hypoxic in the 60%'s in triage and she was immediately placed in room 2 on supplemental oxygen. This is where I evaluate the patient. Denies abdominal pain, nausea, vomiting, diarrhea, chest pain. - Related Data Home Medications Medication Instructions Recorded Confirmed Albuterol Inhaler [Ventolin Hfa 2 puff INHALATION RT-Q4H PRN 02/17/25 02/17/25 Inhaler] Cyclobenzaprine HCl 7.5 mg PO TID PRN 02/17/25 02/17/25 Ergocalciferol (Vitamin D2) 1,250 mcg PO Q30D 02/17/25 02/17/25 [Drisdol (50,000 Iu)] Fluticasone Propion/Salmeterol 1 puff INHALATION RT-BID 02/17/25 02/17/25 [Advair 250-50 Diskus] Ibuprofen [Motrin] 800 mg PO Q8H PRN 02/17/25 02/17/25 Levothyroxine Sodium [Synthroid] 75 mcg PO MOTUWETHFRSA 02/17/25 02/17/25 Lurasidone [Latuda] 20 mg PO W/SUPPER 02/17/25 02/17/25 Meloxicam [Mobic] 15 mg PO DAILY 02/17/25 02/17/25 Mirtazapine [Remeron] 15 mg PO HS 02/17/25 02/17/25 Nystatin 100,000 Unit/gm Powd 1 applic TOPICAL BID PRN 02/17/25 02/17/25 [Mycostatin Powder] Phenyleph/Pramoxin/Glycr/W.pet 1 applic RECTAL DAILY PRN 02/17/25 02/17/25 [Preparation H Cream] Sertraline [Zoloft] 100 mg PO DAILY 02/17/25 02/17/25 Allergies Allergy/AdvReac Type Severity Reaction Status Date / Time acetaminophen [From Tylenol] Allergy Rash/Hives Verified 02/17/25 13:22 Penicillins Allergy Rash/Hives Verified 02/17/25 13:22 Review of Systems ROS Statement: Those systems with pertinent positive or pertinent negative responses have been documented in the HPI. Review of Systems: CONST: Denies fever EYES: Denies blurry vision ENT: Endorses nasal congestion C/V: Denies Chest pain RESP: Endorses wheezing, shortness of breath GI: Denies abdominal pain : Denies dysuria SKIN: Denies rash. MSK: Denies joint pain. NEURO: Denies headache ROS Other: All systems not noted in ROS Statement are negative. Past Medical History Past Medical History: Asthma History of Any Multi-Drug Resistant Organisms: None Reported Past Surgical History: Section Past Psychological History: Bipolar, Schizophrenia Smoking Status: Former smoker Past Alcohol Use History: None Reported Past Drug Use History: None Reported General Exam - General Exam Comments Initial Comments: General: Appears in respiratory distress. No fever. HEAD: Normal with no signs of head trauma. EYES: PERRLA, EOMI, conjunctiva normal, no discharge. ENT: Hearing grossly intact, normal oropharynx. Dry mucous membranes. RESPIRATORY: Tight breath sounds with wheezing bilaterally. Increased work of breathing. Hypoxic on room air in the 60%'s. C/V: Regular rate and rhythm. S1 and S2 auscultated, no significant edema, peripheral pulses 2+ and intact throughout ABD: Abd is soft, nontender, nondistended EXT: Normal range of motion, no obvious deformity SKIN: No rashes or lesions observed on exposed skin. NEURO: Alert and oriented x 4. Limitations: no limitations Course Vital Signs 02/17/25 02/17/25 02/17/25 12:54 13:05 13:08 Temperature 98.1 F Pulse Rate 91 Respiratory 24 Rate Blood Pressure 109/62 O2 Sat by Pulse 68 L 78 L 93 L Oximetry Fraction of Inspired Oxygen (FIO2) 02/17/25 02/17/25 02/17/25 13:12 13:27 13:39 Temperature Pulse Rate 98 96 Respiratory 35 H 41 H Rate Blood Pressure O2 Sat by Pulse Oximetry Fraction of 100 60 Inspired Oxygen (FIO2) 02/17/25 02/17/25 13:44 13:46 Temperature Pulse Rate 93 Respiratory 30 H Rate Blood Pressure 171/95 O2 Sat by Pulse 97 Oximetry Fraction of 50 Inspired Oxygen (FIO2) Procedures - [place] Protocol (Time Out) Nurse: Chery Handley Medical Decision Making - Medical Decision Making Was pt. sent in by a medical professional or institution (, PA, [facility], urgent care, hospital, or [facility]...) When possible be specific @ -No Did you speak to anyone other than the patient for history (EMS, parent, family, police, friend...)? What history was obtained from this source @ -No Did you review nursing and triage notes (agree or disagree)? Why? @ -I reviewed and agree with nursing and triage notes Were old charts reviewed (outside hosp., previous admission, EMS record, old EKG, old radiological studies, urgent care reports/EKG's, [facility] records)? Report findings @ -Old charts reviewed revealing patient only has a past medical history significant for asthma. No evidence of cardiac history. Differential Diagnosis (chest pain, altered mental status, abdominal pain women, abdominal pain men, vaginal bleeding, weakness, fever, dyspnea, syncope, headache, dizziness, GI bleed, back pain, seizure, CVA, palpatations, mental health, musculoskeletal)? @ -Differential Dyspnea: Coronary syndrome, arrhythmia, tamponade, asthma, COPD, pulmonary embolism, pneumonia, pneumothorax, pulmonary effusion, anaphylaxis, diabetic ketoacidosis, flailed chest, pulmonary contusion, diaphragmatic rupture, anemia, neuromuscular, this is not meant to be an all-inclusive list. EKG interpreted by me (3pts min.). @ -As above X-rays interpreted by me (1pt min.). @ -Chest x-ray shows what looks to be atypical pneumonia. CT interpreted by me (1pt min.). @ -None done U/S interpreted by me (1pt. min.). @ -None done What testing was considered but not performed or refused? (CT, X-rays, U/S, labs)? Why? @ -None What meds were considered but not given or refused? Why? @ -None Did you discuss the management of the patient with other professionals (professionals i.e. , [facility], [facility], lab, RT, psych nurse, social media project manager, business development assistant, teacher, learning and development officer, major case detective)? Give summary @ -Discussed with on-call pulmonology/ICU Dr. Sim who was in agreement with the plan and will evaluate the patient at bedside to determine if patient does not meet ICU criteria. Discussed the case with admitting provider, Dr. Ortega who accepted the admission. Was smoking cessation discussed for >3mins.? @ -No Was critical care preformed (if so, how long)? @ -Yes, 37 minutes Were there social determinants of health that impacted care today? How? (Homeles sness, low income, unemployed, alcoholism, drug addiction, transportation, low edu. Level, literacy, decrease access to med. care, fpc, rehab)? @ -No Was there de-escalation of care discussed even if they declined (Discuss DNR or withdrawal of care, Hospice)? DNR status @ -No What co-morbidities impacted this encounter? (DM, HTN, Smoking, COPD, CAD, Cancer, CVA, ARF, Chemo, Hep., AIDS, mental health diagnosis, sleep apnea, morbid obesity)? @ -Asthma Was patient admitted / discharged? Hospital course, mention meds given and route, prescriptions, significant lab abnormalities, going to OR and other pertinent info. @ -Patient presents with hypoxic respiratory failure likely secondary to asthma exacerbation possible pneumonia. Patient is hypoxic with increased work of breathing but otherwise hemodynamically stable upon arrival. Immediately placed on BiPAP. Patient's respirations and hypoxia did resolve with this. On room air, she was in 60%'s. On 6 L nasal cannula, she was in the mid 70%. Chest x- ray showed pneumonia. EKG showed no obvious acute ischemia. Patient will be given IV fluids, breathing treatment, IV steroids. She was in agreement this plan. Laboratory studies returned remarkable for a leukocytosis of 21.8, as well as a lactic acidosis of 6.1, and hyponatremia of 126 and hypochloremia of 87. BNP is elevated 2580. CRP is elevated at 8.9. Patient does appear to be more of an infectious asthma presentation, rather than a CHF exacerbation presentation. S he clinically has a productive cough of green sputum, is wheezy with coarse breath sounds, and has an elevated white count. No evidence of PND, orthopnea. Very subtle lower extremity pitting edema. Therefore patient does meet sepsis criteria at 1328. Patient started on Rocephin and azithromycin for septic pneumonia. Patient will be administered additional bolus of lactated Ringer's to meet the required 30 cc/kg fluid bolus as well as started on 130 cc an hour of lactated Ringer's. Echo was empirically ordered. Patient was in agreement this plan. I discussed case with the patient as well as caregiver. Patient will be admitted to the hospital. I spoke with Dr. Sim of ICU who would like to evaluate the patient at bedside and will determine if patient does meet ICU admission criteria or not. He was otherwise in agreement with plan for management. I spoke with Dr. Ortega the admitting team who accepted the patient. Patient evaluated and will be admitted to the ICU. Undiagnosed new problem with uncertain prognosis? @ -No Drug Therapy requiring intensive monitoring for toxicity (Heparin, Nitro, Insulin, Cardizem)? @ -No Were any procedures done? @ -No Diagnosis/symptom? @ -Hypoxic respiratory failure requiring BiPAP secondary to septic pneumonia, asthma exacerbation Acute, or Chronic, or Acute on Chronic? @ -Acute Uncomplicated (without systemic symptoms) or Complicated (systemic symptoms)? @ -Complicated Side effects of treatment? @ -No Exacerbation, Progression, or Severe Exacerbation? @ -No Poses a threat to life or bodily function? How? (Chest pain, [place], [place], pneumonia, PE, COPD, DKA, ARF, appy, cholecystitis, CVA, Diverticulitis, Homicidal, Suicidal, threat to staff... and all critical care pts) @ -Yes - Lab Data Result diagrams: 02/17/25 13:24 02/17/25 13:24 Lab Results 02/17/25 02/17/25 02/17/25 Range/Units 13:24 13:24 13:24 WBC 21.80 H (4.50-10.00) 10*3/uL RBC 3.79 L (4.10-5.20) 10*6/uL Hgb 11.9 L (12.0-15.0) g/dL Hct 34.9 L (37.2-46.3) % MCV 92.1 (80.0-97.0) fL MCH 31.4 (27.0-32.0) pg MCHC 34.1 (32.0-37.0) g/dL Plt Count 444 H (140-440) 10*3/uL MPV 9.9 (9.5-12.2) fL Immature Gran % (Auto) 7.6 % Immature Gran # 1.65 H (0.00-0.04) 10*3/uL VBG pH (7.31-7.41) VBG pCO2 (37-51) mmHg VBG HCO3 (24-28) mmol/L Sodium 126 L (137-145) mmol/L Potassium 3.7 (3.5-5.1) mmol/L Chloride 87 L (98-107) mmol/L Carbon Dioxide 27 (22-30) mmol/L Anion Gap 12 mmol/L BUN 14 (7-17) mg/dL Creatinine 0.61 (0.52-1.04) mg/dL Est GFR (CKD-EPI)AfAm >90 (>60 ml/min/1.73 sqM) Est GFR (CKD-EPI)NonAf >90 (>60 ml/min/1.73 sqM) Glucose 258 H (74-99) mg/dL Plasma Lactic Acid Renzo 6.1 H* (0.7-2.0) mmol/L Calcium 8.3 L (8.4-10.2) mg/dL Magnesium 2.1 (1.6-2.3) mg/dL Total Bilirubin 0.9 (0.2-1.3) mg/dL AST 74 H (14-36) U/L ALT 123 H (4-34) U/L Alkaline Phosphatase 301 H (38-126) U/L C-Reactive Protein (<1.0) mg/dL NT-Pro-B Natriuret Pep 2580 pg/mL Total Protein 7.6 (6.3-8.2) g/dL Albumin 3.9 (3.5-5.0) g/dL Influenza Type A (PCR) (Not Detectd) Influenza Type B (PCR) (Not Detectd) RSV (PCR) (Not Detectd) SARS-CoV-2 (PCR) (Not Detectd) 02/17/25 02/17/25 02/17/25 Range/Units 13:24 13:30 13:30 WBC (4.50-10.00) 10*3/uL RBC (4.10-5.20) 10*6/uL Hgb (12.0-15.0) g/dL Hct (37.2-46.3) % MCV (80.0-97.0) fL MCH (27.0-32.0) pg MCHC (32.0-37.0) g/dL Plt Count (140-440) 10*3/uL MPV (9.5-12.2) fL Immature Gran % (Auto) % Immature Gran # (0.00-0.04) 10*3/uL VBG pH 7.33 (7.31-7.41) VBG pCO2 49 (37-51) mmHg VBG HCO3 26 (24-28) mmol/L Sodium (137-145) mmol/L Potassium (3.5-5.1) mmol/L Chloride (98-107) mmol/L Carbon Dioxide (22-30) mmol/L Anion Gap mmol/L BUN (7-17) mg/dL Creatinine (0.52-1.04) mg/dL Est GFR (CKD-EPI)AfAm (>60 ml/min/1.73 sqM) Est GFR (CKD-EPI)NonAf (>60 ml/min/1.73 sqM) Glucose (74-99) mg/dL Plasma Lactic Acid Renzo (0.7-2.0) mmol/L Calcium (8.4-10.2) mg/dL Magnesium (1.6-2.3) mg/dL Total Bilirubin (0.2-1.3) mg/dL AST (14-36) U/L ALT (4-34) U/L Alkaline Phosphatase (38-126) U/L C-Reactive Protein 8.9 H (<1.0) mg/dL NT-Pro-B Natriuret Pep pg/mL Total Protein (6.3-8.2) g/dL Albumin (3.5-5.0) g/dL Influenza Type A (PCR) Not Detected (Not Detectd) Influenza Type B (PCR) Not Detected (Not Detectd) RSV (PCR) Not Detected (Not Detectd) SARS-CoV-2 (PCR) Not Detected (Not Detectd) - EKG Data -: EKG Interpreted by Me EKG Comments: 12-lead Electrocardiogram Interpretation Note EKG was reviewed and interpreted by myself. 12-lead ECG performed at 1339 is interpreted by me as revealing normal sinus rhythm at a rate of 95 beats per minute. [place] is normal. CT interval is 156 ms, QRS durations 110 ms, QTc is 422 ms.. There were no ST or T wave abnormalities to suggest myocardial ischemia or injury. R wave progression across the precordium was delayed. By my interpretation this EKG is non-diagnostic for acute ischemia. Critical Care Time Critical Care Time: Yes Total Critical Care Time: 37 Disposition Clinical Impression: Acute hypoxic respiratory failure, Asthma, Pneumonia, BiPAP (biphasic positive airway pressure) dependence, Sepsis Disposition: ADMITTED IP TO THIS HOSP Condition: Serious Referrals: Radha Castro MD [Primary Care Provider] - 1-2 days Time of Disposition: 14:26
[2025-02-17] MEDS: AZITHROMYCIN 500 MG in SODIUM CHLORIDE 0.9% 250 ML IVPB STA (14:27)
[2025-02-17] MEDS: LACTATED RINGERS 1,000 ML IV SCH (14:28)
[2025-02-17] MEDS: LACTATED RINGERS 1,000 ML BAG IV STA (14:28)
[2025-02-17] MEDS ORDERED: NALOXONE 0.4 MG/ML 1 ML VIAL IV PRN (14:29)
--- NOTE | 2025-02-17 14:29 | ED ---
Medical Decision Making - Lab Data Result diagrams: 02/17/25 13:24 02/17/25 13:24 Lab Results 02/17/25 02/17/25 02/17/25 Range/Units 13:24 13:24 13:24 WBC 21.80 H (4.50-10.00) 10*3/uL RBC 3.79 L (4.10-5.20) 10*6/uL Hgb 11.9 L (12.0-15.0) g/dL Hct 34.9 L (37.2-46.3) % MCV 92.1 (80.0-97.0) fL MCH 31.4 (27.0-32.0) pg MCHC 34.1 (32.0-37.0) g/dL Plt Count 444 H (140-440) 10*3/uL MPV 9.9 (9.5-12.2) fL Immature Gran % (Auto) 7.6 % Immature Gran # 1.65 H (0.00-0.04) 10*3/uL VBG pH (7.31-7.41) VBG pCO2 (37-51) mmHg VBG HCO3 (24-28) mmol/L Sodium 126 L (137-145) mmol/L Potassium 3.7 (3.5-5.1) mmol/L Chloride 87 L (98-107) mmol/L Carbon Dioxide 27 (22-30) mmol/L Anion Gap 12 mmol/L BUN 14 (7-17) mg/dL Creatinine 0.61 (0.52-1.04) mg/dL Est GFR (CKD-EPI)AfAm >90 (>60 ml/min/1.73 sqM) Est GFR (CKD-EPI)NonAf >90 (>60 ml/min/1.73 sqM) Glucose 258 H (74-99) mg/dL Plasma Lactic Acid Renzo 6.1 H* (0.7-2.0) mmol/L Calcium 8.3 L (8.4-10.2) mg/dL Magnesium 2.1 (1.6-2.3) mg/dL Total Bilirubin 0.9 (0.2-1.3) mg/dL AST 74 H (14-36) U/L ALT 123 H (4-34) U/L Alkaline Phosphatase 301 H (38-126) U/L C-Reactive Protein (<1.0) mg/dL NT-Pro-B Natriuret Pep 2580 pg/mL Total Protein 7.6 (6.3-8.2) g/dL Albumin 3.9 (3.5-5.0) g/dL Influenza Type A (PCR) (Not Detectd) Influenza Type B (PCR) (Not Detectd) RSV (PCR) (Not Detectd) SARS-CoV-2 (PCR) (Not Detectd) 02/17/25 02/17/25 02/17/25 Range/Units 13:24 13:30 13:30 WBC (4.50-10.00) 10*3/uL RBC (4.10-5.20) 10*6/uL Hgb (12.0-15.0) g/dL Hct (37.2-46.3) % MCV (80.0-97.0) fL MCH (27.0-32.0) pg MCHC (32.0-37.0) g/dL Plt Count (140-440) 10*3/uL MPV (9.5-12.2) fL Immature Gran % (Auto) % Immature Gran # (0.00-0.04) 10*3/uL VBG pH 7.33 (7.31-7.41) VBG pCO2 49 (37-51) mmHg VBG HCO3 26 (24-28) mmol/L Sodium (137-145) mmol/L Potassium (3.5-5.1) mmol/L Chloride (98-107) mmol/L Carbon Dioxide (22-30) mmol/L Anion Gap mmol/L BUN (7-17) mg/dL Creatinine (0.52-1.04) mg/dL Est GFR (CKD-EPI)AfAm (>60 ml/min/1.73 sqM) Est GFR (CKD-EPI)NonAf (>60 ml/min/1.73 sqM) Glucose (74-99) mg/dL Plasma Lactic Acid Renzo (0.7-2.0) mmol/L Calcium (8.4-10.2) mg/dL Magnesium (1.6-2.3) mg/dL Total Bilirubin (0.2-1.3) mg/dL AST (14-36) U/L ALT (4-34) U/L Alkaline Phosphatase (38-126) U/L C-Reactive Protein 8.9 H (<1.0) mg/dL NT-Pro-B Natriuret Pep pg/mL Total Protein (6.3-8.2) g/dL Albumin (3.5-5.0) g/dL Influenza Type A (PCR) Not Detected (Not Detectd) Influenza Type B (PCR) Not Detected (Not Detectd) RSV (PCR) Not Detected (Not Detectd) SARS-CoV-2 (PCR) Not Detected (Not Detectd) Disposition Clinical Impression: Acute hypoxic respiratory failure, Asthma, Pneumonia, BiPAP (biphasic positive airway pressure) dependence, Sepsis Disposition: ADMITTED IP TO THIS HOSP Condition: Serious Referrals: Radha Castro MD [Primary Care Provider] - 1-2 days Procedures - [place] Protocol (Time Out) Nurse: Chery Handley - Sepsis Sepsis Focused Exam #1 Time Sepsis Criteria Met: 13:28 Sepsis Focused Exam Date: 02/17/25 Sepsis Focused Exam Time: 14:25 Sepsis Focused Exam Complete: Yes Vital Signs & RN Notes Reviewed: Yes Capillary Refill: > 2 Seconds: Fingers, Toes Peripheral Pulses: Normal: Radial (R), Radial (L) Skin Color: Normal for Patient Respiratory Exam: wheezes Cardiovascular Exam: regular rate, normal rhythm
[2025-02-17 14:52] LABS: Band Neutrophils % 7 %; Lymphocytes # (M) 2.18 k/uL (1.0-4.8); Monocytes # (M) 0.65 k/uL (0-1.0); Neutrophils # (M) 18.96 k/uL (1.3-7.7); Neutrophils % (M) 80 %; Nucleated Red Blood Cells 0 /100 WBC (0-0); Total Cells Counted 100
--- NOTE | 2025-02-17 15:25 | P.CNPUL ---
History of Present Illness Consult date: 02/17/25 Requesting physician: Obinna Sotelo Reason for consult: dyspnea, pneumonia, abnormal CXR/CT Chief complaint: Shortness of breath History of present illness: This is a 54-year-old female patient who has developmental delays and resides in a ch[facility]. She also has a history of mild intermittent chronic bronchial asthma, hypothyroidism. She was brought into the emergency room today with a 2- day history of increasing shortness of breath cough and congestion. She did see a PCP and was initiated on steroids without much improvement. Chest x-ray reveals interstitial changes suspect bronchitis, chronic asthma, mild pulmonary congestion. White count 21.8. Hemoglobin 11.9. Platelets 444. Sodium 126. Potassium 3.7. Bicarb 27. BUN 14. Creatinine 0.61. Glucose 258. Lactic acid 6.1. AST 74. ALT 123. C-reactive protein 8.9. proBNP 2580. Viral screen negative for influenza A/B, RSV and COVID. She is seen today in consultation in the ER. She is currently sitting up on a stretcher. She is requiring BiPAP 12/6 and 50% FiO2 with O2 saturations in the mid 90s. She is alert. She is afebrile. Hemodynamically stable. Review of Systems REVIEW OF SYSTEMS: CONSTITUTIONAL: Denies any recent significant weight loss or weight gain. EYES: Denies change in vision. EARS, NOSE, MOUTH, THROAT: Denies headaches, denies sore throat. CARDIOVASCULAR: Denies chest pain, palpitations or syncopal episodes. RESPIRATORY: Positive for shortness of breath, cough, congestion no hemoptysis. GASTROINTESTINAL: Denies change in appetite, denies abdominal pain GENITOURINARY: Denies hematuria, denies infections. MUSKULOSKELETAL: Denies pain, denies swelling. INTEGUMENTARY: Denies rash, denies eczema. NEUROLOGICAL: Denies recent memory loss, no recent seizure activity. PSYCHIATRIC: Denies anxiety, denies depression. HEMATOLOGIC/LYMPHATIC: Denies anemia, denies enlarged lymph nodes. Past Medical History Past Medical History: Asthma History of Any Multi-Drug Resistant Organisms: None Reported Past Surgical History: Section Past Psychological History: Bipolar, Schizophrenia Smoking Status: Former smoker Past Alcohol Use History: None Reported Past Drug Use History: None Reported Medications and Allergies Home Medications Medication Instructions Recorded Confirmed Type Albuterol Inhaler [Ventolin Hfa 2 puff INHALATION RT-Q4H PRN 02/17/25 02/17/25 History Inhaler] Cyclobenzaprine HCl 7.5 mg PO TID PRN 02/17/25 02/17/25 History Ergocalciferol (Vitamin D2) 1,250 mcg PO Q30D 02/17/25 02/17/25 History [Drisdol (50,000 Iu)] Fluticasone Propion/Salmeterol 1 puff INHALATION RT-BID 02/17/25 02/17/25 History [Advair 250-50 Diskus] Ibuprofen [Motrin] 800 mg PO Q8H PRN 02/17/25 02/17/25 History Levothyroxine Sodium [Synthroid] 75 mcg PO MOTUWETHFRSA 02/17/25 02/17/25 History Lurasidone [Latuda] 20 mg PO W/SUPPER 02/17/25 02/17/25 History Meloxicam [Mobic] 15 mg PO DAILY 02/17/25 02/17/25 History Mirtazapine [Remeron] 15 mg PO HS 02/17/25 02/17/25 History Nystatin 100,000 Unit/gm Powd 1 applic TOPICAL BID PRN 02/17/25 02/17/25 History [Mycostatin Powder] Phenyleph/Pramoxin/Glycr/W.pet 1 applic RECTAL DAILY PRN 02/17/25 02/17/25 History [Preparation H Cream] Sertraline [Zoloft] 100 mg PO DAILY 02/17/25 02/17/25 History Allergies Allergy/AdvReac Type Severity Reaction Status Date / Time acetaminophen [From Tylenol] Allergy Rash/Hives Verified 02/17/25 13:22 Penicillins Allergy Rash/Hives Verified 02/17/25 13:22 Physical Exam Vitals: Vital Signs Temp Pulse Resp BP Pulse Ox FiO2 02/17/25 13:46 93 30 H 171/95 97 02/17/25 13:44 50 02/17/25 13:39 96 41 H 02/17/25 13:27 98 35 H 60 02/17/25 13:12 100 02/17/25 13:08 93 L 02/17/25 13:05 78 L 02/17/25 12:54 98.1 F 91 24 109/62 68 L Intake and Output 02/16/25 02/17/25 02/17/25 22:59 06:59 14:59 Other: Weight 83.915 kg GENERAL EXAM: Alert, pleasant 54-year-old female, on BiPAP 12/6 and 50% FiO2, fairly comfortable in no apparent distress. HEAD: Normocephalic. EYES: Normal reaction of pupils, equal size. NOSE: Clear with pink turbinates. THROAT: No erythema or exudates. NECK: No masses, no JVD. CHEST: No chest wall deformity. LUNGS: Equal air entry with bilateral scattered rhonchi. CVS: S1 and S2 normal with no audible murmur, regular rhythm. ABDOMEN: No hepatosplenomegaly, normal bowel sounds, no guarding or rigidity. SPINE: No scoliosis or deformity SKIN: No rashes CENTRAL NERVOUS SYSTEM: No focal deficits, tone is normal in all 4 extremities. EXTREMITIES: There is no peripheral edema. No clubbing, no cyanosis. Peripheral pulses are intact. Results - Laboratory Findings CBC and BMP: 02/17/25 13:24 02/17/25 13:24 Abnormal lab findings: Abnormal Labs 02/17/25 02/17/25 02/17/25 13:24 13:24 13:24 WBC 21.80 H RBC 3.79 L Hgb 11.9 L Hct 34.9 L Plt Count 444 H Immature Gran # 1.65 H Sodium 126 L Chloride 87 L Glucose 258 H Plasma Lactic Acid Renzo 6.1 H* Calcium 8.3 L AST 74 H ALT 123 H Alkaline Phosphatase 301 H C-Reactive Protein 02/17/25 13:30 WBC RBC Hgb Hct Plt Count Immature Gran # Sodium Chloride Glucose Plasma Lactic Acid Renzo Calcium AST ALT Alkaline Phosphatase C-Reactive Protein 8.9 H - Diagnostic Findings Chest x-ray: image reviewed Assessment and Plan Assessment: Acute hypoxemic respiratory failure secondary to an acute exacerbation of mild intermittent chronic bronchial asthma, possible underlying pneumonia, mild vascular congestion Leukocytosis secondary to above Hyponatremia Hyperglycemia Lactic acidosis Transaminitis History of mild intermittent chronic bronchial asthma Hypothyroidism History of developmental delay resides in a ch[facility] Plan: The patient was seen and evaluated Chest x-ray, labs and medications reviewed Initiated on DuoNeb inhalations Initiated on Pulmicort and Perforomist inhalation Initiated on Solu-Medrol Antibiotics in the form of ceftriaxone and azithromycin Lovenox for DVT prophylaxis Continue BiPAP support for now Transition to nasal cannula as tolerated Titrate down the FiO2 as tolerated The patient has a public guardian We will continue to follow and make further recommendations based on her clinical status I have personally seen and examined the patient, performed the documentation and the assessment and plan as written. Number of minutes spent on the visit: 20 Dictation was produced using [employer] dictation software. Please excuse any grammatical, word or spelling errors. Time with Patient: Greater than 30
--- NOTE | 2025-02-17 15:27 | P.HPIM ---
History of Present Illness H&P Date: 02/17/25 54 year old F with PMH of developmental delay, Asthma, Bipolar/Schizophrenia, Hypothyroid presents to the ED for shortness of breath, cough productive of green-yellow sputum for the past 2 days. History is limited as patient is on continuous BiPAP 12/6 FiO2 50%. She reports feeling thirsty and would like the BiPAP off. She denies any nausea or vomiting, fever or chills, chest pain or lightheadedness. No changes in urination or bowel habits. In the ED she underwent extensive evaluation. BP 109/62, HR 91, T 98.1F, 68% on RA, RR 24. CBC, Coag panel, CMP significant for WBC 21.8, RBC 3.79, Hg 11.9, Hct 34.9, Plt 444, Na 126, Cl 87, glu 258, Ca 8.3, AST 74, ALT 123, alk phos 301. BNP 2580. CRP 8.9. VBG pH 7.33, pCO2 49. Lactic acid 6.1. COVID, RSV, Flu neg. CXR shows bilateral interstitial opacities. EKG shows sinus rhythm with no ST elevation. Patient is started on Rocephin/Azithromycin, continuous BiPAP, bronchodilators and admitted for ICU for further workup and management. General: toxic, no distress Derm: warm, dry Head: atraumatic, normocephalic, symmetric Mouth: no lip lesion, mucus membranes moist Cardiovascular: S1S2 tachy, no murmur Lungs: Expiratory wheezing bilaterally, no rales , + accessory muscle use Abd: Soft. Non tender to palpation. Ext: no gross muscle atrophy, no edema, no contractures Neuro: No focal neurologic deficits. Psych: Alert and oriented. Based on my assessment of this patient, this patient meets a high complexity level of care. Acute hypoxic respiratory failure due to below Sepsis secondary to community acquired pneumonia: Rocephin 2g IV QD + A zithromycin 500 mg PO QD. Continue LR at 130 cc/hr. Obtain Sputum and Blood Cx, Legionella Ag. Follow Pro-luis. Obtain echocardiogram given elevated BNP. DuoNeb QID scheduled and Q2H PRN. Mucinex 1200 mg PO BID. Continue BiPAP. Telemetry monitoring. Maintain MAP > 65. Pulmonary is consulted. Acute asthma exacerbation: Bronchodilators as above. Pulmicort 0.5 mg INH BID. Perforomist 20 mcg INH BID. SoluMedrol 40 mg IV Q8H. Lactic acidosis: Status post 1L LR bolus + 1L NS bolus. Continue IV hydration as above. Trend until negative. Hyponatremia: Likely due to dehydration. IV hydration as above. Repeat CMP in the AM. Transaminitis: Unknown etiology. Repeat CMP in the AM. Normocytic anemia and Thrombocytosis: Possibly iron def. anemia. No signs of active bleeding. Repeat CBC in the AM. Hypothyroid: Synthroid 75 mcg PO QD. Bipolar and Schizophrenia: Latuda 20 mg PO QHS. Remeron 15 mg PO QHS. Sertraline 100 mg PO QD. CODE STATUS: FULL CODE. DVT Prophylaxis: Lovenox SQ GI Prophylaxis: Protonix IV Designated medical POA if patient is not able to make medical decisions for themselves: I have reviewed the following analytical consultant notes: ED note. I have reviewed the results of the following tests: As above. I have ordered the following tests: As above. I have discussed the care of this patient with the following independent historian: ANDRES. I have independently interpreted the following test below: EKG. I have discussed the management of this patient with the following physician: Past Medical History Past Medical History: Asthma History of Any Multi-Drug Resistant Organisms: None Reported Past Surgical History: Section Past Psychological History: Bipolar, Schizophrenia Smoking Status: Former smoker Past Alcohol Use History: None Reported Past Drug Use History: None Reported Medications and Allergies Home Medications Medication Instructions Recorded Confirmed Type Albuterol Inhaler [Ventolin Hfa 2 puff INHALATION RT-Q4H PRN 02/17/25 02/17/25 History Inhaler] Cyclobenzaprine HCl 7.5 mg PO TID PRN 02/17/25 02/17/25 History Ergocalciferol (Vitamin D2) 1,250 mcg PO Q30D 02/17/25 02/17/25 History [Drisdol (50,000 Iu)] Fluticasone Propion/Salmeterol 1 puff INHALATION RT-BID 02/17/25 02/17/25 History [Advair 250-50 Diskus] Ibuprofen [Motrin] 800 mg PO Q8H PRN 02/17/25 02/17/25 History Levothyroxine Sodium [Synthroid] 75 mcg PO MOTUWETHFRSA 02/17/25 02/17/25 History Lurasidone [Latuda] 20 mg PO W/SUPPER 02/17/25 02/17/25 History Meloxicam [Mobic] 15 mg PO DAILY 02/17/25 02/17/25 History Mirtazapine [Remeron] 15 mg PO HS 02/17/25 02/17/25 History Nystatin 100,000 Unit/gm Powd 1 applic TOPICAL BID PRN 02/17/25 02/17/25 History [Mycostatin Powder] Phenyleph/Pramoxin/Glycr/W.pet 1 applic RECTAL DAILY PRN 02/17/25 02/17/25 History [Preparation H Cream] Sertraline [Zoloft] 100 mg PO DAILY 02/17/25 02/17/25 History Allergies Allergy/AdvReac Type Severity Reaction Status Date / Time acetaminophen [From Tylenol] Allergy Rash/Hives Verified 02/17/25 13:22 Penicillins Allergy Rash/Hives Verified 02/17/25 13:22 Physical Exam Vitals: Vital Signs Temp Pulse Resp BP Pulse Ox FiO2 02/17/25 14:15 93 35 H 164/82 92 L 02/17/25 13:46 93 30 H 171/95 97 02/17/25 13:44 50 02/17/25 13:39 96 41 H 02/17/25 13:27 98 35 H 60 02/17/25 13:12 100 02/17/25 13:08 93 L 02/17/25 13:05 78 L 02/17/25 12:54 98.1 F 91 24 109/62 68 L Intake and Output 02/16/25 02/17/25 02/17/25 22:59 06:59 14:59 Other: Weight 83.915 kg Results CBC & Chem 7: 02/17/25 13:24 02/17/25 13:24 Labs: Abnormal Lab Results - Last 24 Hours (Table) 02/17/25 02/17/25 02/17/25 Range/Units 13:24 13:24 13:24 WBC 21.80 H (4.50-10.00) 10*3/uL RBC 3.79 L (4.10-5.20) 10*6/uL Hgb 11.9 L (12.0-15.0) g/dL Hct 34.9 L (37.2-46.3) % Plt Count 444 H (140-440) 10*3/uL Immature Gran # 1.65 H (0.00-0.04) 10*3/uL Neutrophils # (Manual) 18.96 H (1.3-7.7) k/uL Sodium 126 L (137-145) mmol/L Chloride 87 L (98-107) mmol/L Glucose 258 H (74-99) mg/dL Plasma Lactic Acid Renzo 6.1 H* (0.7-2.0) mmol/L Calcium 8.3 L (8.4-10.2) mg/dL AST 74 H (14-36) U/L ALT 123 H (4-34) U/L Alkaline Phosphatase 301 H (38-126) U/L C-Reactive Protein (<1.0) mg/dL 02/17/25 Range/Units 13:30 WBC (4.50-10.00) 10*3/uL RBC (4.10-5.20) 10*6/uL Hgb (12.0-15.0) g/dL Hct (37.2-46.3) % Plt Count (140-440) 10*3/uL Immature Gran # (0.00-0.04) 10*3/uL Neutrophils # (Manual) (1.3-7.7) k/uL Sodium (137-145) mmol/L Chloride (98-107) mmol/L Glucose (74-99) mg/dL Plasma Lactic Acid Renzo (0.7-2.0) mmol/L Calcium (8.4-10.2) mg/dL AST (14-36) U/L ALT (4-34) U/L Alkaline Phosphatase (38-126) U/L C-Reactive Protein 8.9 H (<1.0) mg/dL
[2025-02-17 15:46] LABS: Glucose,Whole Blood 187 mg/dL (70-110)
[2025-02-17] MEDS: IPRATROPIUM-ALBUTEROL 3 ML NEB INHALATION SCH (16:28)
[2025-02-17] MEDS ORDERED: LORazepam 1 MG/0.5 ML VIAL IV PRN (16:50)
[2025-02-17] MEDS: LORazepam 2 MG/ML INJ IV PRN (17:08)
[2025-02-17] MEDS: LURASIDONE 20 MG TAB PO SCH (17:10)
[2025-02-17 17:59] LABS: ABG Base Excess 1.3 mmol/L; ABG HCO3 31 mmol/L (21-25); ABG Oxygen Saturation 95.8 % (94-97); ABG PH 7.23 (7.35-7.45); ABG PO2 99 mmHg (83-108); ABG TCO2 33 mmol/L (19-24); Allen Test Performed? Yes
[2025-02-17] MEDS: LORazepam 2 MG/ML INJ IV STA (18:00)
[2025-02-17 18:06] LABS: ABG PCO2 73 mmHg (35-45)
[2025-02-17] MEDS ORDERED: Potassium Replacement Protocol 1 EACH MISC MISCELLANE PRN (18:24)
[2025-02-17] MEDS ORDERED: Phosphorus Replacement Protoco 1 EACH MISC MISCELLANE PRN (18:24)
[2025-02-17] MEDS ORDERED: Magnesium Replacement Protocol 1 EACH MISC MISCELLANE PRN (18:24)
--- NOTE | 2025-02-17 18:44 | XR ---
EXAMINATION TYPE: XR chest 1V portable DATE OF EXAM: 02/17/2025 6:38 PM COMPARISON: Chest radiographs from 02/17/2025. TECHNIQUE: XR chest 1V portable Portable AP radiograph of the chest. CLINICAL INDICATION:Female, 54 years old with history of Tube placement; FINDINGS: Lungs/Pleura: There is no evidence of pleural effusion, focal consolidation, or pneumothorax. Underl tyesha interstitial prominence redemonstrated. Heart/mediastinum: Cardiomediastinal silhouette is unremarkable. Musculoskeletal: No acute osseous pathology. Other findings: None Lines/Tubes: Endotracheal tube with distal tip 1.6 cm above the erika Nasogastric tube with its distal tip and side-port projecting under the diaphragm. IMPRESSION: 1. Endotracheal tube and NG tube appear to be in the appropriate position. 2. Similar interstitial prominence which can be seen with bronchitis versus chronic asthma versus at ypical pneumonia or pulmonary vessel congestion. [facility], , 02/17/2025 6:41 PM
[2025-02-17 18:58] LABS: ABG Base Excess 3.1 mmol/L; ABG HCO3 30 mmol/L (21-25); ABG Oxygen Saturation >100.0 % (94-97); ABG PCO2 57 mmHg (35-45); ABG PH 7.33 (7.35-7.45); ABG TCO2 32 mmol/L (19-24); Allen Test Performed? Yes
[2025-02-17 19:04] LABS: ABG PO2 >420 mmHg (83-108)
[2025-02-17] MEDS: HYDROmorphone 2 MG/ML 1 ML SYRINGE IVP PRN (19:51)
[2025-02-17] MEDS: FORMOTEROL FUMARATE 20 MCG/2 ML NEBU INHALATION SCH (19:55)
[2025-02-17] MEDS: BUDESONIDE 0.5 MG/2 ML NEBU INHALATION SCH (19:55)
[2025-02-17] MEDS: CHLORHEXIDINE GLUCONATE 15 ML CUP MUCOUS MEM SCH (20:01)
[2025-02-17] MEDS: guaiFENesin 600 MG TABLET.ER PO SCH (20:01)
[2025-02-17] MEDS: MIRTAZAPINE 15 MG TAB PO SCH (20:48)
[2025-02-17] MEDS: methylPREDNISolone SOD SUCCI 40 MG/ML 1 ML VIAL IV SCH (20:48)
--- NOTE | 2025-02-17 21:54 | CT ---
EXAMINATION TYPE: CT brain wo con DATE OF EXAM: 02/17/2025 9:31 PM COMPARISON: 06/06/2016. CLINICAL INDICATION: Female, 54 years old with history of recent fall, hit head, left pupil 6mm, nonr eactive, recent fall x 1 week ago, hit head, left pupil 6mm non reactive today. Patient ventilated. TECHNIQUE: Brain: Axial CT images of the brain were obtained with coronal and sagittal reformats created and rev iewed. Contrast used: None. Oral contrast used: None. CT DLP: 1156.4 mGycm, Automated exposure control for dose reduction was used. FINDINGS: Brain: Extra-axial spaces: No abnormal extra-axial fluid collections. Ventricular system: Within normal limits Cerebral parenchyma: No acute intraparenchymal hemorrhage or mass effect. The marrufo-white junction is well differentiated. Cerebellum: Unremarkable. Mass effect: No evidence of midline shift. Intracranial vasculature: unremarkable Soft tissues: Normal. Calvarium/osseous structures: No depressed skull fracture. Deformity to the bilateral nasal bone left greater right. Paranasal sinuses and mastoid air cells: Mild scattered paranasal sinus disease. Layering fluid in th e bilateral maxillary sinuses. Visualized orbits: Orbital contents are intact. Partially visualized tubing noted. IMPRESSION: 1. No acute intracranial process. 2. Bony deformity to the nasal bones bilaterally, left greater right correlate with tenderness for a cute fracture. 3. The orbits orbits and globes appear intact. 4. Debris in the maxillary sinuses [facility], , 02/17/2025 9:52 PM
[2025-02-17 22:57] LABS: Appearance,Urine Clear (Clear); Bilirubin,Urine Negative (Negative); Blood,Urine Negative (Negative); Color,Urine Colorless; Glucose,Urine (UA) Negative (Negative); Ketones,Urine 1+ (Negative); Leukocyte Esterase,Urine Negative (Negative); Nitrite,Urine Negative (Negative); PH, Urine 6.5 (5.0-8.0); Protein,Urine Negative (Negative); Specific Gravity,Urine 1.002 (1.001-1.035); Urobilinogen,Urine <2.0 mg/dL (<2.0)
--- NOTE | 2025-02-17 23:36 | P.PCN ---
Date of Procedure: 02/17/25 Preoperative Diagnosis: Acute hypoxemic and hypercapnic respiratory failure Postoperative Diagnosis: Acute hypoxemic and hypercapnic respiratory failure Procedure(s) Performed: Insertion of a right radial arterial line Indications for Procedure: Hemodynamic monitoring and frequent blood draws Description of Procedure: Informed consent was obtained, and a procedural timeout was performed . The patient was placed in supine position. The right radial region was prepared in a sterile fashion, and a sterile drape was applied. The right radial artery was palpated, easily cannulated, and a guidewire was placed. A Cook catheter was inserted over the guidewire, and the guidewire was removed. There was good arterial blood flow, good arterial waveform, and no complications. The line was secured with using a 3-0 silk suture.
[2025-02-17] MEDS: IPRATROPIUM-ALBUTEROL 3 ML NEB INHALATION PRN (23:56)
[2025-02-18 00:10] LABS: Glucose,Whole Blood 202 mg/dL (70-110)
[2025-02-18] MEDS ORDERED: DEXTROSE 50% SYRINGE 50 ML IVP PRN ×2 (00:29)
[2025-02-18] MEDS: INSULIN LISPRO (HumaLOG) 100 UNIT/ML 10 mL VL SQ SCH (00:53)
[2025-02-18 05:32] LABS: ABG Base Excess 6.4 mmol/L; ABG HCO3 31 mmol/L (21-25); ABG Oxygen Saturation 98.5 % (94-97); ABG PCO2 42 mmHg (35-45); ABG PH 7.47 (7.35-7.45); ABG PO2 93 mmHg (83-108); ABG TCO2 32 mmol/L (19-24)
[2025-02-18 05:33] LABS: Allen Test Performed? no
[2025-02-18 05:35] LABS: Glucose,Whole Blood 196 mg/dL (70-110)
[2025-02-18 05:54] LABS: Basophils # (A) 0.03 10*3/uL (0.00-0.10); Basophils % (A) 0.3 %; HCT 28.9 % (37.2-46.3); Lymphocytes # (A) 0.83 10*3/uL (0.90-5.00); Lymphocytes % (A) 8.7 %; MCH 31.2 pg (27.0-32.0); MCHC 33.6 g/dL (32.0-37.0); MCV 92.9 fL (80.0-97.0); Monocytes # (A) 0.67 10*3/uL (0.20-1.00); Neutrophils # (A) 7.67 10*3/uL (1.80-7.70); Neutrophils % (A) 80.4 %; Platelet Count 272 10*3/uL (140-440); RBC 3.11 10*6/uL (4.10-5.20); RDW 13.1 % (11.5-14.5); WBC 9.54 10*3/uL (4.50-10.00)
[2025-02-18 06:02] LABS: HGB 9.7 g/dL (12.0-15.0)
[2025-02-18 06:15] LABS: ALT 88 U/L (4-34); AST 29 U/L (14-36); African American GFR (CKD) >90 (>60 ml/min/1.73 sqM); Albumin 2.7 g/dL (3.5-5.0); Alkaline Phosphatase 208 U/L (38-126); Anion Gap 7 mmol/L; Blood Urea Nitrogen 9 mg/dL (7-17); Calcium 8.6 mg/dL (8.4-10.2); Carbon Dioxide 31 mmol/L (22-30); Chloride 101 mmol/L (98-107); Glucose 183 mg/dL (74-99); Magnesium 2.8 mg/dL (1.6-2.3); Non-African American GFR(CKD) >90 (>60 ml/min/1.73 sqM); Phosphorus 3.3 mg/dL (2.5-4.5); Potassium 3.5 mmol/L (3.5-5.1); Sodium 139 mmol/L (137-145); Total Bilirubin 0.4 mg/dL (0.2-1.3); Total Protein 5.8 g/dL (6.3-8.2)
[2025-02-18] MEDS: LEVOTHYROXINE 75 MCG TAB PO SCH (06:31)
[2025-02-18] MEDS: POTASSIUM BICARBONATE/CIT AC 20 MEQ TABLET.EFF NG-TUBE SCH (06:31)
--- NOTE | 2025-02-18 08:01 | XR ---
EXAMINATION TYPE: XR chest 1V portable DATE OF EXAM: 02/18/2025 5:33 AM COMPARISON: 02/17/2025 CLINICAL INDICATION: Female, 54 years old with history of Tube placement, , FINDINGS: ET tube tip 2.0 cm from the erika. NG tube courses below the diaphragm. Heart mildly enlarged. Diffu se interstitial and reticular opacities remain throughout possibly slightly worsened. No pleural effu tirso. IMPRESSION: 1. ET tube tip 2.0 cm from the erika. Consider pulling back 1 cm and reassessing at follow-up. 2. Mild cardiomegaly and persistent diffuse interstitial opacities. Consider interstitial pulmonary e chapnicito or atypical pneumonias. [facility], , 02/18/2025 7:59 AM
[2025-02-18] MEDS: SERTRALINE 100 MG TAB PO SCH (09:53)
[2025-02-18] MEDS: ENOXAPARIN 40 MG/0.4 ML SYRINGE SQ SCH (09:53)
[2025-02-18] MEDS: cefTRIAXone 2 GM in DEXTROSE 5% IN WATER 50 ML IVPB SCH (09:54)
[2025-02-18] MEDS: PANTOPRAZOLE 40 MG/10 ML VIAL IVP SCH (09:54)
--- NOTE | 2025-02-18 10:06 | P.PN ---
Subjective Progress Note Date: 02/18/25 This is a 54-year-old female patient who has developmental delays and resides in a [facility]. She also has a history of mild intermittent chronic bronchial asthma, hypothyroidism. She was brought into the emergency room today with a 2- day history of increasing shortness of breath cough and congestion. She did see a PCP and was initiated on steroids without much improvement. Chest x-ray reveals interstitial changes suspect bronchitis, chronic asthma, mild pulmonary congestion. White count 21.8. Hemoglobin 11.9. Platelets 444. Sodium 126. Potassium 3.7. Bicarb 27. BUN 14. Creatinine 0.61. Glucose 258. Lactic acid 6.1. AST 74. ALT 123. C-reactive protein 8.9. proBNP 2580. Viral screen negative for influenza A/B, RSV and COVID. She is seen today in consultation in the ER. She is currently sitting up on a stretcher. She is requiring BiPAP 12/6 and 50% FiO2 with O2 saturations in the mid 90s. She is alert. She is afebrile. Hemodynamically stable. The patient is seen today February 18, 2025 in follow-up in the intensive care unit. Pulmonary status continued to deteriorate and subsequently she was intubated and placed on mechanical ventilator approximately 6:30 last evening. She is currently in assist-control mode at a rate of 28, tidal volume 400, FiO2 50%, PEEP of 5. Morning arterial blood gases revealed a PaO2 of 93, pCO2 42 and a pH of 7.47. White count 9.4. Hemoglobin 9.7. Platelets 272. Sodium 139. Potassium 3.5. Bicarb 31. BUN 9. Creatinine 0.60. Glucose 183. Per minute. Lactated Ringer's at 130 mL/h. On DuoNeb inhalations every 4 hours, Pulmicort and Perforomist inhalations, IV Solu-Medrol. She is on antibiotics in the form of ceftriaxone and azithromycin. Procalcitonin was negative at 0.18. Lovenox for DVT prophylaxis. Sputum culture pending. Objective - Vital Signs Vital signs: Vital Signs Temp 97.8 F 02/18/25 04:00 Pulse 56 L 02/18/25 09:01 Resp 28 H 02/18/25 09:01 BP 122/77 02/18/25 09:01 Pulse Ox 95 02/18/25 09:01 FiO2 50 02/18/25 09:01 Intake & Output 02/17/25 02/18/25 02/18/25 18:59 06:59 18:59 Intake Total 7700.555 7528.714 392.483 Output Total 960 2440 221 Balance 830.629 -713.286 171.483 Weight 87 kg 86.7 kg Intake: IV 1790 1560 335 Azithromycin 500 mg In 250 Sodium Chloride 0.9% 250 ml @ 250 mls/hr IVPB ONCE STA Rx#:[id number] Lactated Ringers 1,000 ml 390 1560 335 @ 75 mls/hr IV .[id number] [facility] Rx#:[id number] Magnesium Sulfate-D5w Pmx 100 1 gm In Dextrose/Water 1 100ml.bag @ 100 mls/hr IVPB ONCE STA Rx#: [id number] Sodium Chloride 0.9% 1, 1000 000 ml @ 999 mls/hr IV . Q1H1M [facility] Rx#:[id number] cefTRIAXone 2 gm In 50 Sodium Chloride 0.9% 50 ml @ 100 mls/hr IVPB ONCE STA Rx#:[id number] Intake, IV Titration 0.629 166.714 57.483 Amount propofoL 1,000 mg In 0.629 166.714 57.483 Empty Bag 1 bag @ 15 MCG/ KG/MIN 7.552 mls/hr IV . [id number] [facility] Rx#:[id number] Output: Urine 960 2440 221 Other: Voiding Method Indwelling Catheter Indwelling Catheter Indwelling Catheter # Bowel Movements 0 ABP, PAP, CO, CI - Last Documented Arterial Blood Pressure 153/62 - Exam GENERAL EXAM: Intubated, sedated 54-year-old female, on the mechanical ventilator, comfortable in no apparent distress. HEAD: Normocephalic. EYES: Normal reaction of pupils, equal size. NOSE: Clear with pink turbinates. THROAT: No erythema or exudates. Oral endotracheal and gastric tube secured in place. NECK: No masses, no JVD. CHEST: No chest wall deformity. LUNGS: Equal air entry with bilateral scattered rhonchi. CVS: S1 and S2 normal with no audible murmur, regular rhythm. ABDOMEN: No hepatosplenomegaly, normal bowel sounds, no guarding or rigidity. SPINE: No scoliosis or deformity SKIN: No rashes CENTRAL NERVOUS SYSTEM: Sedated, tone is normal in all 4 extremities. EXTREMITIES: There is no peripheral edema. No clubbing, no cyanosis. Peripheral pulses are intact. - Labs CBC & Chem 7: 02/18/25 05:35 02/18/25 05:35 Labs: Abnormal Lab Results - Last 24 Hours (Table) 02/17/25 02/17/25 02/17/25 Range/Units 13:24 13:24 13:24 WBC 21.80 H (4.50-10.00) 10*3/uL RBC 3.79 L (4.10-5.20) 10*6/uL Hgb 11.9 L (12.0-15.0) g/dL Hct 34.9 L (37.2-46.3) % Plt Count 444 H (140-440) 10*3/uL Immature Gran # 1.65 H (0.00-0.04) 10*3/uL Neutrophils # (Manual) 18.96 H (1.3-7.7) k/uL Lymphocytes # (0.90-5.00) 10*3/uL Eosinophils # (0.04-0.35) 10*3/uL ABG pH (7.35-7.45) ABG pCO2 (35-45) mmHg ABG pO2 (83-108) mmHg ABG HCO3 (21-25) mmol/L ABG Total CO2 (19-24) mmol/L ABG O2 Saturation (94-97) % Hemoglobin (11.4-16.0) gm/dL Sodium 126 L (137-145) mmol/L Chloride 87 L (98-107) mmol/L Carbon Dioxide (22-30) mmol/L Glucose 258 H (74-99) mg/dL POC Glucose (mg/dL) (70-110) mg/dL Plasma Lactic Acid Renzo 6.1 H* (0.7-2.0) mmol/L Calcium 8.3 L (8.4-10.2) mg/dL Magnesium (1.6-2.3) mg/dL AST 74 H (14-36) U/L ALT 123 H (4-34) U/L Alkaline Phosphatase 301 H (38-126) U/L C-Reactive Protein (<1.0) mg/dL Total Protein (6.3-8.2) g/dL Albumin (3.5-5.0) g/dL Urine Ketones (Negative) 02/17/25 02/17/25 02/17/25 Range/Units 13:30 15:45 17:56 WBC (4.50-10.00) 10*3/uL RBC (4.10-5.20) 10*6/uL Hgb (12.0-15.0) g/dL Hct (37.2-46.3) % Plt Count (140-440) 10*3/uL Immature Gran # (0.00-0.04) 10*3/uL Neutrophils # (Manual) (1.3-7.7) k/uL Lymphocytes # (0.90-5.00) 10*3/uL Eosinophils # (0.04-0.35) 10*3/uL ABG pH 7.23 L (7.35-7.45) ABG pCO2 73 H* (35-45) mmHg ABG pO2 (83-108) mmHg ABG HCO3 31 H (21-25) mmol/L ABG Total CO2 33 H (19-24) mmol/L ABG O2 Saturation (94-97) % Hemoglobin (11.4-16.0) gm/dL Sodium (137-145) mmol/L Chloride (98-107) mmol/L Carbon Dioxide (22-30) mmol/L Glucose (74-99) mg/dL POC Glucose (mg/dL) 187 H (70-110) mg/dL Plasma Lactic Acid Renzo (0.7-2.0) mmol/L Calcium (8.4-10.2) mg/dL Magnesium (1.6-2.3) mg/dL AST (14-36) U/L ALT (4-34) U/L Alkaline Phosphatase (38-126) U/L C-Reactive Protein 8.9 H (<1.0) mg/dL Total Protein (6.3-8.2) g/dL Albumin (3.5-5.0) g/dL Urine Ketones (Negative) 02/17/25 02/17/25 02/18/25 Range/Units 18:55 22:21 00:07 WBC (4.50-10.00) 10*3/uL RBC (4.10-5.20) 10*6/uL Hgb (12.0-15.0) g/dL Hct (37.2-46.3) % Plt Count (140-440) 10*3/uL Immature Gran # (0.00-0.04) 10*3/uL Neutrophils # (Manual) (1.3-7.7) k/uL Lymphocytes # (0.90-5.00) 10*3/uL Eosinophils # (0.04-0.35) 10*3/uL ABG pH 7.33 L (7.35-7.45) ABG pCO2 57 H (35-45) mmHg ABG pO2 >420 H (83-108) mmHg ABG HCO3 30 H (21-25) mmol/L ABG Total CO2 32 H (19-24) mmol/L ABG O2 Saturation >100.0 H (94-97) % Hemoglobin 10.2 L (11.4-16.0) gm/dL Sodium (137-145) mmol/L Chloride (98-107) mmol/L Carbon Dioxide (22-30) mmol/L Glucose (74-99) mg/dL POC Glucose (mg/dL) 202 H (70-110) mg/dL Plasma Lactic Acid Renzo (0.7-2.0) mmol/L Calcium (8.4-10.2) mg/dL Magnesium (1.6-2.3) mg/dL AST (14-36) U/L ALT (4-34) U/L Alkaline Phosphatase (38-126) U/L C-Reactive Protein (<1.0) mg/dL Total Protein (6.3-8.2) g/dL Albumin (3.5-5.0) g/dL Urine Ketones 1+ H (Negative) 02/18/25 02/18/25 02/18/25 Range/Units 05:27 05:33 05:35 WBC (4.50-10.00) 10*3/uL RBC 3.11 L (4.10-5.20) 10*6/uL Hgb 9.7 L D (12.0-15.0) g/dL Hct 28.9 L (37.2-46.3) % Plt Count (140-440) 10*3/uL Immature Gran # 0.34 H (0.00-0.04) 10*3/uL Neutrophils # (Manual) (1.3-7.7) k/uL Lymphocytes # 0.83 L (0.90-5.00) 10*3/uL Eosinophils # 0.00 L (0.04-0.35) 10*3/uL ABG pH 7.47 H (7.35-7.45) ABG pCO2 (35-45) mmHg ABG pO2 (83-108) mmHg ABG HCO3 31 H (21-25) mmol/L ABG Total CO2 32 H (19-24) mmol/L ABG O2 Saturation 98.5 H (94-97) % Hemoglobin 9.7 L (11.4-16.0) gm/dL Sodium (137-145) mmol/L Chloride (98-107) mmol/L Carbon Dioxide (22-30) mmol/L Glucose (74-99) mg/dL POC Glucose (mg/dL) 196 H (70-110) mg/dL Plasma Lactic Acid Renzo (0.7-2.0) mmol/L Calcium (8.4-10.2) mg/dL Magnesium (1.6-2.3) mg/dL AST (14-36) U/L ALT (4-34) U/L Alkaline Phosphatase (38-126) U/L C-Reactive Protein (<1.0) mg/dL Total Protein (6.3-8.2) g/dL Albumin (3.5-5.0) g/dL Urine Ketones (Negative) 02/18/25 Range/Units 05:35 WBC (4.50-10.00) 10*3/uL RBC (4.10-5.20) 10*6/uL Hgb (12.0-15.0) g/dL Hct (37.2-46.3) % Plt Count (140-440) 10*3/uL Immature Gran # (0.00-0.04) 10*3/uL Neutrophils # (Manual) (1.3-7.7) k/uL Lymphocytes # (0.90-5.00) 10*3/uL Eosinophils # (0.04-0.35) 10*3/uL ABG pH (7.35-7.45) ABG pCO2 (35-45) mmHg ABG pO2 (83-108) mmHg ABG HCO3 (21-25) mmol/L ABG Total CO2 (19-24) mmol/L ABG O2 Saturation (94-97) % Hemoglobin (11.4-16.0) gm/dL Sodium (137-145) mmol/L Chloride (98-107) mmol/L Carbon Dioxide 31 H (22-30) mmol/L Glucose 183 H (74-99) mg/dL POC Glucose (mg/dL) (70-110) mg/dL Plasma Lactic Acid Renzo (0.7-2.0) mmol/L Calcium (8.4-10.2) mg/dL Magnesium 2.8 H (1.6-2.3) mg/dL AST (14-36) U/L ALT 88 H (4-34) U/L Alkaline Phosphatase 208 H (38-126) U/L C-Reactive Protein (<1.0) mg/dL Total Protein 5.8 L (6.3-8.2) g/dL Albumin 2.7 L (3.5-5.0) g/dL Urine Ketones (Negative) Microbiology - Last 24 Hours (Table) 02/17/25 18:32 Gram Stain - Preliminary Sputum Assessment and Plan Assessment: Acute hypoxemic respiratory failure secondary to an acute exacerbation of mild intermittent chronic bronchial asthma, possible underlying pneumonia, mild vascular congestion requiring intubation and mechanical ventilatory support on 02/17/2025 Leukocytosis secondary to above Hyponatremia Hyperglycemia Lactic acidosis Transaminitis History of mild intermittent chronic bronchial asthma Hypothyroidism History of developmental delay resides in a penitentiary Plan: The patient was seen and evaluated Chest x-ray, ABGs, labs and medications reviewed Continue DuoNeb inhalations Continue Pulmicort and Perforomist inhalation Cntinue Solu-Medrol Procalcitonin was negative Will discontinue ceftriaxone Continue azithromycin for now Sputum culture is pending Lovenox for DVT prophylaxis Protonix for GI prophylaxis Titrate down the FiO2 as tolerated We will continue to follow I have personally seen and examined the patient, performed the documentation and the assessment and plan as written. Number of minutes spent on the visit: 15 Dictation was produced using [employer] dictation software. Please excuse any grammatical, word or spelling errors.
--- NOTE | 2025-02-18 10:19 | CA ---
Transthoracic Echo Report Name: Cara Lopez Age: 54 Gender: F : 1970 Exam Date: 02/17/2025 15:10 Exam Location: [facility] Ht (in): 66 Wt (lb): 185 Ordering Physician: Obinna Sotelo MD Attending/Referring Phys: Plastics Engineer Ramona Lewis RDCS Procedure CPT: Indications: dyspnea, Heart failure, unspecified Cardiac Hx: Technical Quality: Fair Contrast 1: Total Dose (mL): Contrast 2: Total Dose (mL): MEASUREMENTS (Male / Female) Normal Values 2D ECHO LV Diastolic Diameter PLAX 4.6 cm 4.2 - 5.9 / 3.9 - 5.3 cm LV Systolic Diameter PLAX 3.2 cm IVS Diastolic Thickness 1.1 cm 0.6 - 1.0 / 0.6 - 0.9 cm LVPW Diastolic Thickness 1.1 cm 0.6 - 1.0 / 0.6 - 0.9 cm LV Relative Wall Thickness 0.5 RV Internal Dim ED PLAX 3.2 cm LA Systolic Diameter LX 3.8 cm 3.0 - 4.0 / 2.7 - 3.8 cm LV Diastolic Volume MOD BP 104.4 cm??? 67 - 155 / 56 - 104 cm??? LV Systolic Volume MOD BP 39.5 cm??? 22 - 58 / 19 - 49 cm??? LV Ejection Fraction MOD BP 62.1 % >= 55 % LV Cardiac Index MOD BP 3110.8 cm???/min???m??? LV Diastolic Volume MOD 4C 81.9 cm??? LV Systolic Volume MOD 4C 36.4 cm??? LV Ejection Fraction MOD 4C 55.6 % LV Cardiac Index MOD 4C 2182.9 cm???/min???m??? LV Diastolic Length 4C 6.4 cm LV Systolic Length 4C 5.7 cm LV Diastolic Volume MOD 2C 113.6 cm??? LV Systolic Volume MOD 2C 37.9 cm??? LV Ejection Fraction MOD 2C 66.7 % LV Cardiac Index MOD 2C 3633.0 cm???/min???m??? LV Diastolic Length 2C 7.6 cm LV Systolic Length 2C 5.0 cm LA Volume 45.5 cm??? 18 - 58 / 22 - 52 cm??? LA Volume Index 22.8 cm???/m??? 16 - 28 cm???/m??? DOPPLER AV Peak Velocity 145.9 cm/s AV Peak Gradient 8.5 mmHg MV Area PHT 4.6 cm??? Mitral E Point Velocity 149.9 cm/s Mitral A Point Velocity 131.1 cm/s Mitral E to A Ratio 1.1 MV Deceleration Time 163.3 ms FINDINGS Left Ventricle Left ventricular ejection fraction is estimated at 55-60 %. Left ventricular cavity size normal. Mildly increased septal wall thickness. Mildly increased posterior wall thickness. No obvious regional wall motion abnormalities. Right Ventricle Normal right ventricular size. Unable to estimate the right ventricular systolic pressure. Right Atrium Right atrium not well visualized. Left Atrium Normal left atrial size. No left atrial thrombus or mass present. Mitral Valve Structurally normal mitral valve. No mitral stenosis, regurgitation or prolapse. Aortic Valve Aortic valve not well visualized. No aortic valve stenosis or regurgitation. Tricuspid Valve Structurally normal tricuspid valve. No tricuspid stenosis, regurgitation or prolapse. Pulmonic Valve Pulmonic valve not well visualized. No pulmonic regurgitation. Pericardium No pericardial effusion. Aorta Normal size aortic root and proximal ascending aorta. CONCLUSIONS LVEF 55% No obvious regional wall motion abnormality Mild concentric LVH Normal RV size and systolic function No significant valvular dysfunction No prior echo to compare with database Previewed by: Dr Handy Serrato (Electronically Signed) Final Date: 18 February 2025 10:19
[2025-02-18] MEDS: AZITHROMYCIN 500 MG TAB PO SCH (10:28)
[2025-02-18] MEDS: IPRATROPIUM-ALBUTEROL 3 ML NEB INHALATION SCH (11:16)
[2025-02-18 12:03] LABS: Glucose,Whole Blood 161 mg/dL (70-110)
--- NOTE | 2025-02-18 16:31 | P.PN ---
Subjective Progress Note Date: 02/18/25 54 year old F with PMH of developmental delay, Asthma, Bipolar/Schizophrenia, Hypothyroid presents to the ED for shortness of breath, cough productive of green-yellow sputum for the past 2 days. History is limited as patient is on continuous BiPAP 12/6 FiO2 50%. She reports feeling thirsty and would like the BiPAP off. She denies any nausea or vomiting, fever or chills, chest pain or lightheadedness. No changes in urination or bowel habits. In the ED she underwent extensive evaluation. BP 109/62, HR 91, T 98.1F, 68% on RA, RR 24. CBC, Coag panel, CMP significant for WBC 21.8, RBC 3.79, Hg 11.9, Hct 34.9, Plt 444, Na 126, Cl 87, glu 258, Ca 8.3, AST 74, ALT 123, alk phos 301. BNP 2580. CRP 8.9. VBG pH 7.33, pCO2 49. Lactic acid 6.1. COVID, RSV, Flu neg. CXR shows bilateral interstitial opacities. EKG shows sinus rhythm with no ST elevation. Patient is started on Rocephin/Azithromycin, continuous BiPAP, bronchodilators and admitted for ICU for further workup and management. Intubated overnight. 02/18 Patient was seen and examined. Intubated. Vent settings rate 28, tidal volume 400, PEEP 5, FiO2 50%. Sedation with Propofol at 50 mcg/kg/min. Antibiotics include Rocephin and Azithromycin. CT brain done yesterday for abnormal pupil size showing no acute process and deformity of the nasal bones bilaterally. CBC and CMP significant for RBC 3.11, Hg 9.7, Hct 28.9, bicarb 31, glu 183, ALT 88, alk phos 208, alb 2.7. Mag 2.8. ABG pH 7.47, pCO2 42, pO2 93 on FiO2 50. CXR shows diffuse interstitial infiltrates. Echo shows EF 55-60% with mild LVH. General: Intubated Derm: warm, dry Head: atraumatic, normocephalic, symmetric Mouth: no lip lesion, mucus membranes moist Cardiovascular: S1S2 tachy, no murmur Lungs: Coarse BS bilaterally, no rales Abd: Soft. Distended. + BS Ext: no gross muscle atrophy, no edema, no contractures Neuro: Unable to determine Psych: Unable to determine Based on my assessment of this patient, this patient meets a high complexity level of care. Acute hypoxic respiratory failure due to below Sepsis secondary to community acquired pneumonia: Rocephin 2g IV QD + Azithromycin 500 mg PO QD. Decrease LR from 130 to 75 cc/hr. Follow Sputum and Blood Cx, Legionella Ag. Follow Pro-luis. DuoNeb QID scheduled and Q2H PRN. Mucinex 1200 mg PO BID. Continue BiPAP. Telemetry monitoring. Maintain MAP > 65. Pulmonary on board. Acute asthma exacerbation: Bronchodilators as above. Pulmicort 0.5 mg INH BID. Perforomist 20 mcg INH BID. SoluMedrol 40 mg IV Q8H. Transaminitis: Unknown etiology. Repeat CMP in the AM. Normocytic anemia: Possibly iron def. anemia. No signs of active bleeding. Acute drop is likely dilutional. Repeat CBC in the AM. Hypothyroid: Synthroid 75 mcg PO QD. Bipolar and Schizophrenia: Latuda 20 mg PO QHS. Remeron 15 mg PO QHS. Sertraline 100 mg PO QD. Resolved: Lactic acidosis, HypoNa CODE STATUS: FULL CODE. DVT Prophylaxis: Lovenox SQ GI Prophylaxis: Protonix IV Designated medical POA if patient is not able to make medical decisions for t hemselves: I have reviewed the following independent beauty consultant notes: Pulm note. I have reviewed the results of the following tests: As above. I have ordered the following tests: As above. I have discussed the care of this patient with the following independent historian: ANDRES. I have independently interpreted the following test below: CXR I have discussed the management of this patient with the following physician: Objective - Vital Signs Vital signs: Vital Signs Temp 97.9 F 02/18/25 12:00 Pulse 60 02/18/25 15:10 Resp 28 H 02/18/25 15:00 BP 120/66 02/18/25 15:00 Pulse Ox 95 02/18/25 15:00 FiO2 50 02/18/25 15:39 Intake & Output 02/17/25 02/18/25 02/18/25 18:59 06:59 18:59 Intake Total 7817.973 3099.714 1291.435 Output Total 960 2440 506 Balance 830.629 -713.286 785.435 Weight 87 kg 86.7 kg 86.7 kg Intake: IV 1790 1560 835 Azithromycin 500 mg In 250 Sodium Chloride 0.9% 250 ml @ 250 mls/hr IVPB ONCE STA Rx#:[id number] Lactated Ringers 1,000 ml 390 1560 785 @ 75 mls/hr IV .[id number] [facility] Rx#:[id number] Magnesium Sulfate-D5w Pmx 100 1 gm In Dextrose/Water 1 100ml.bag @ 100 mls/hr IVPB ONCE STA Rx#: [id number] Sodium Chloride 0.9% 1, 1000 000 ml @ 999 mls/hr IV . Q1H1M [facility] Rx#:[id number] cefTRIAXone 2 gm In 50 50 Sodium Chloride 0.9% 50 ml @ 100 mls/hr IVPB ONCE STA Rx#:[id number] Intake, IV Titration 0.629 166.714 246.435 Amount propofoL 1,000 mg In 0.629 166.714 246.435 Empty Bag 1 bag @ 15 MCG/ KG/MIN 7.552 mls/hr IV . [id number] [facility] Rx#:[id number] Tube Feeding 150 Other 60 Output: Urine 960 2440 506 Other: Voiding Method Indwelling Catheter Indwelling Catheter Indwelling Catheter # Bowel Movements 0 ABP, PAP, CO, CI - Last Documented Arterial Blood Pressure 146/61 - Labs CBC & Chem 7: 02/18/25 05:35 02/18/25 05:35 Labs: Abnormal Lab Results - Last 24 Hours (Table) 02/17/25 02/17/25 02/17/25 Range/Units 17:56 18:55 22:21 RBC (4.10-5.20) 10*6/uL Hgb (12.0-15.0) g/dL Hct (37.2-46.3) % Immature Gran # (0.00-0.04) 10*3/uL Lymphocytes # (0.90-5.00) 10*3/uL Eosinophils # (0.04-0.35) 10*3/uL ABG pH 7.23 L 7.33 L (7.35-7.45) ABG pCO2 73 H* 57 H (35-45) mmHg ABG pO2 >420 H (83-108) mmHg ABG HCO3 31 H 30 H (21-25) mmol/L ABG Total CO2 33 H 32 H (19-24) mmol/L ABG O2 Saturation >100.0 H (94-97) % Hemoglobin 10.2 L (11.4-16.0) gm/dL Carbon Dioxide (22-30) mmol/L Glucose (74-99) mg/dL POC Glucose (mg/dL) (70-110) mg/dL Magnesium (1.6-2.3) mg/dL ALT (4-34) U/L Alkaline Phosphatase (38-126) U/L Total Protein (6.3-8.2) g/dL Albumin (3.5-5.0) g/dL Urine Ketones 1+ H (Negative) 02/18/25 02/18/25 02/18/25 Range/Units 00:07 05:27 05:33 RBC (4.10-5.20) 10*6/uL Hgb (12.0-15.0) g/dL Hct (37.2-46.3) % Immature Gran # (0.00-0.04) 10*3/uL Lymphocytes # (0.90-5.00) 10*3/uL Eosinophils # (0.04-0.35) 10*3/uL ABG pH 7.47 H (7.35-7.45) ABG pCO2 (35-45) mmHg ABG pO2 (83-108) mmHg ABG HCO3 31 H (21-25) mmol/L ABG Total CO2 32 H (19-24) mmol/L ABG O2 Saturation 98.5 H (94-97) % Hemoglobin 9.7 L (11.4-16.0) gm/dL Carbon Dioxide (22-30) mmol/L Glucose (74-99) mg/dL POC Glucose (mg/dL) 202 H 196 H (70-110) mg/dL Magnesium (1.6-2.3) mg/dL ALT (4-34) U/L Alkaline Phosphatase (38-126) U/L Total Protein (6.3-8.2) g/dL Albumin (3.5-5.0) g/dL Urine Ketones (Negative) 02/18/25 02/18/25 02/18/25 Range/Units 05:35 05:35 12:01 RBC 3.11 L (4.10-5.20) 10*6/uL Hgb 9.7 L D (12.0-15.0) g/dL Hct 28.9 L (37.2-46.3) % Immature Gran # 0.34 H (0.00-0.04) 10*3/uL Lymphocytes # 0.83 L (0.90-5.00) 10*3/uL Eosinophils # 0.00 L (0.04-0.35) 10*3/uL ABG pH (7.35-7.45) ABG pCO2 (35-45) mmHg ABG pO2 (83-108) mmHg ABG HCO3 (21-25) mmol/L ABG Total CO2 (19-24) mmol/L ABG O2 Saturation (94-97) % Hemoglobin (11.4-16.0) gm/dL Carbon Dioxide 31 H (22-30) mmol/L Glucose 183 H (74-99) mg/dL POC Glucose (mg/dL) 161 H (70-110) mg/dL Magnesium 2.8 H (1.6-2.3) mg/dL ALT 88 H (4-34) U/L Alkaline Phosphatase 208 H (38-126) U/L Total Protein 5.8 L (6.3-8.2) g/dL Albumin 2.7 L (3.5-5.0) g/dL Urine Ketones (Negative) Microbiology - Last 24 Hours (Table) 02/17/25 18:32 Gram Stain - Preliminary Sputum
[2025-02-18 17:51] LABS: Glucose,Whole Blood 219 mg/dL (70-110)
[2025-02-18] MEDS: HYDROmorphone 0.5 MG/0.5 ML SYRINGE IVP PRN (20:39)
[2025-02-19 00:24] LABS: Glucose,Whole Blood 198 mg/dL (70-110)
[2025-02-19 05:22] LABS: Basophils # (A) 0.06 10*3/uL (0.00-0.10); Basophils % (A) 0.5 %; HCT 31.1 % (37.2-46.3); HGB 10.2 g/dL (12.0-15.0); Lymphocytes # (A) 1.01 10*3/uL (0.90-5.00); Lymphocytes % (A) 7.7 %; MCH 31.1 pg (27.0-32.0); MCHC 32.8 g/dL (32.0-37.0); MCV 94.8 fL (80.0-97.0); Mean Platelet Volume 9.8 fL (9.5-12.2); Monocytes # (A) 0.58 10*3/uL (0.20-1.00); Monocytes % (A) 4.4 %; Neutrophils # (A) 10.76 10*3/uL (1.80-7.70); Neutrophils % (A) 81.5 %; Platelet Count 332 10*3/uL (140-440); RBC 3.28 10*6/uL (4.10-5.20); RDW 13.5 % (11.5-14.5); WBC 13.19 10*3/uL (4.50-10.00)
[2025-02-19 05:33] LABS: ALT 68 U/L (4-34); AST 21 U/L (14-36); African American GFR (CKD) >90 (>60 ml/min/1.73 sqM); Anion Gap 4 mmol/L; Blood Urea Nitrogen 16 mg/dL (7-17); Calcium 8.6 mg/dL (8.4-10.2); Carbon Dioxide 32 mmol/L (22-30); Chloride 103 mmol/L (98-107); Glucose 215 mg/dL (74-99); Magnesium 2.8 mg/dL (1.6-2.3); Non-African American GFR(CKD) >90 (>60 ml/min/1.73 sqM); Sodium 139 mmol/L (137-145)
[2025-02-19 05:42] LABS: ABG Base Excess 8.6 mmol/L; ABG HCO3 33 mmol/L (21-25); ABG PCO2 45 mmHg (35-45); ABG PH 7.48 (7.35-7.45); ABG PO2 72 mmHg (83-108); ABG TCO2 35 mmol/L (19-24)
[2025-02-19 05:43] LABS: Allen Test Performed? no
[2025-02-19 06:21] LABS: Glucose,Whole Blood 220 mg/dL (70-110)
[2025-02-19] MEDS: FUROSEMIDE 10 MG/ML 4 ML VIAL IV STA (09:18)
--- NOTE | 2025-02-19 09:25 | XR ---
EXAMINATION TYPE: XR chest 1V portable DATE OF EXAM: 02/19/2025 5:34 AM COMPARISON: 02/18/2025 CLINICAL INDICATION: Female, 54 years old with history of Tube placement, , FINDINGS: ET and NG tubes are satisfactory. Heart borderline enlarged. Medium diffuse interstitial opacities pe rsist. Possibly with slight interval improvement. No pleural effusion. IMPRESSION: Moderate interstitial changes persist though with slight interval improvement. [facility], Workstation: [id number], 02/19/2025 9:22 AM
[2025-02-19 09:41] LABS: ABG Base Excess 6.6 mmol/L; ABG HCO3 33 mmol/L (21-25); ABG Oxygen Saturation 98.1 % (94-97); ABG PCO2 53 mmHg (35-45); ABG PO2 111 mmHg (83-108); ABG TCO2 34 mmol/L (19-24)
--- NOTE | 2025-02-19 10:20 | P.PN ---
Subjective Progress Note Date: 02/19/25 This is a 54-year-old female patient who has developmental delays and resides in a nursing home. She also has a history of mild intermittent chronic bronchial asthma, hypothyroidism. She was brought into the emergency room today with a 2- day history of increasing shortness of breath cough and congestion. She did see a PCP and was initiated on steroids without much improvement. Chest x-ray reveals interstitial changes suspect bronchitis, chronic asthma, mild pulmonary congestion. White count 21.8. Hemoglobin 11.9. Platelets 444. Sodium 126. Potassium 3.7. Bicarb 27. BUN 14. Creatinine 0.61. Glucose 258. Lactic acid 6.1. AST 74. ALT 123. C-reactive protein 8.9. proBNP 2580. Viral screen negative for influenza A/B, RSV and COVID. She is seen today in consultation in the ER. She is currently sitting up on a stretcher. She is requiring BiPAP 12/6 and 50% FiO2 with O2 saturations in the mid 90s. She is alert. She is afebrile. Hemodynamically stable. The patient is seen today February 18, 2025 in follow-up in the intensive care unit. Pulmonary status continued to deteriorate and subsequently she was intubated and placed on mechanical ventilator approximately 6:30 last evening. She is currently in assist-control mode at a rate of 28, tidal volume 400, FiO2 50%, PEEP of 5. Morning arterial blood gases revealed a PaO2 of 93, pCO2 42 and a pH of 7.47. White count 9.4. Hemoglobin 9.7. Platelets 272. Sodium 139. Potassium 3.5. Bicarb 31. BUN 9. Creatinine 0.60. Glucose 183. Per minute. Lactated Ringer's at 130 mL/h. On DuoNeb inhalations every 4 hours, Pulmicort and Perforomist inhalations, IV Solu-Medrol. She is on antibiotics in the form of ceftriaxone and azithromycin. Procalcitonin was negative at 0.18. Lovenox for DVT prophylaxis. Sputum culture pending. The patient is seen today February 19, 2025 in follow-up in the intensive care unit. She remains intubated on the mechanical ventilator currently in assist- control mode at a rate of 28, tidal volume 400, FiO2 50% and a PEEP of 5. Morning blood gases revealed a PaO2 of 72, BSD044 and a pH of 7.48. She has lactated Ringer's running at 75 mL/h. Propofol presently on hold for daily interruption of sedation. She is being fed with vital HP 25 mL/h which is goal. Chest x-ray reveals mild interstitial edema with slight improvement. Blood culture revealed no growth. Sputum culture reveals no growth. White count 13.1. Hemoglobin 10.2. Platelets 332. Sodium 139. Potassium 4.0. Bicarb 32. BUN 16. Creatinine 0.65. Glucose 215. She remains on DuoNeb and elations, Pulmicort and Perforomist inhalations, IV Solu-Medrol. Lovenox for DVT prophylaxis. Protonix for GI prophylaxis. Objective - Vital Signs Vital signs: Vital Signs Temp 97.6 F 02/19/25 08:00 Pulse 86 02/19/25 09:00 Resp 24 02/19/25 09:00 BP 126/92 02/19/25 09:00 Pulse Ox 98 02/19/25 09:00 FiO2 50 02/19/25 09:08 Intake & Output 02/18/25 02/19/25 02/19/25 18:59 06:59 18:59 Intake Total 7072.700 8502.581 481.889 Output Total 636 650 470 Balance 1052.568 829.581 11.889 Weight 86.7 kg 86.8 kg 86.8 kg Intake: IV 1060 900 225 Lactated Ringers 1,000 ml 1010 900 225 @ 75 mls/hr IV .[id number] [facility] Rx#:[id number] cefTRIAXone 2 gm In 50 Sodium Chloride 0.9% 50 ml @ 100 mls/hr IVPB ONCE STA Rx#:[id number] Intake, IV Titration 313.568 279.581 91.889 Amount propofoL 1,000 mg In 313.568 279.581 91.889 Empty Bag 1 bag @ 15 MCG/ KG/MIN 7.552 mls/hr IV . [id number] [facility] Rx#:[id number] Tube Feeding 225 300 55 Other 90 110 Output: Gastric Drainage 30 Urine 636 650 440 Other: Voiding Method Indwelling Catheter Indwelling Catheter Indwelling Catheter # Bowel Movements 0 0 0 ABP, PAP, CO, CI - Last Documented Arterial Blood Pressure 144/110 - Exam GENERAL EXAM: Intubated, sedated 54-year-old female patient, on the mechanical ventilator, in no apparent distress. HEAD: Normocephalic. EYES: Normal reaction of pupils, equal size. NOSE: Clear with pink turbinates. THROAT: No erythema or exudates. Oral endotracheal and gastric tube secured in place. NECK: No masses, no JVD. CHEST: No chest wall deformity. LUNGS: Equal air entry with bilateral scattered rhonchi. CVS: S1 and S2 normal with no audible murmur, regular rhythm. ABDOMEN: No hepatosplenomegaly, normal bowel sounds, no guarding or rigidity. SPINE: No scoliosis or deformity SKIN: No rashes CENTRAL NERVOUS SYSTEM: Sedated, tone is normal in all 4 extremities. EXTREMITIES: There is no peripheral edema. No clubbing, no cyanosis. Peripheral pulses are intact. - Labs CBC & Chem 7: 02/19/25 05:14 02/19/25 05:14 Labs: Abnormal Lab Results - Last 24 Hours (Table) 02/18/25 02/18/25 02/19/25 Range/Units 12:01 17:50 00:21 WBC (4.50-10.00) 10*3/uL RBC (4.10-5.20) 10*6/uL Hgb (12.0-15.0) g/dL Hct (37.2-46.3) % Immature Gran # (0.00-0.04) 10*3/uL Neutrophils # (1.80-7.70) 10*3/uL Eosinophils # (0.04-0.35) 10*3/uL ABG pH (7.35-7.45) ABG pO2 (83-108) mmHg ABG HCO3 (21-25) mmol/L ABG Total CO2 (19-24) mmol/L Hemoglobin (11.4-16.0) gm/dL Carbon Dioxide (22-30) mmol/L Glucose (74-99) mg/dL POC Glucose (mg/dL) 161 H 219 H 198 H (70-110) mg/dL Hemoglobin A1c (<=6.0) % Magnesium (1.6-2.3) mg/dL ALT (4-34) U/L 02/19/25 02/19/25 02/19/25 Range/Units 05:14 05:14 05:14 WBC 13.19 H (4.50-10.00) 10*3/uL RBC 3.28 L (4.10-5.20) 10*6/uL Hgb 10.2 L (12.0-15.0) g/dL Hct 31.1 L (37.2-46.3) % Immature Gran # 0.78 H (0.00-0.04) 10*3/uL Neutrophils # 10.76 H (1.80-7.70) 10*3/uL Eosinophils # 0.00 L (0.04-0.35) 10*3/uL ABG pH (7.35-7.45) ABG pO2 (83-108) mmHg ABG HCO3 (21-25) mmol/L ABG Total CO2 (19-24) mmol/L Hemoglobin (11.4-16.0) gm/dL Carbon Dioxide 32 H (22-30) mmol/L Glucose 215 H (74-99) mg/dL POC Glucose (mg/dL) (70-110) mg/dL Hemoglobin A1c 7.0 H (<=6.0) % Magnesium 2.8 H (1.6-2.3) mg/dL ALT 68 H (4-34) U/L 02/19/25 02/19/25 Range/Units 05:36 06:19 WBC (4.50-10.00) 10*3/uL RBC (4.10-5.20) 10*6/uL Hgb (12.0-15.0) g/dL Hct (37.2-46.3) % Immature Gran # (0.00-0.04) 10*3/uL Neutrophils # (1.80-7.70) 10*3/uL Eosinophils # (0.04-0.35) 10*3/uL ABG pH 7.48 H (7.35-7.45) ABG pO2 72 L (83-108) mmHg ABG HCO3 33 H (21-25) mmol/L ABG Total CO2 35 H (19-24) mmol/L Hemoglobin 10.2 L (11.4-16.0) gm/dL Carbon Dioxide (22-30) mmol/L Glucose (74-99) mg/dL POC Glucose (mg/dL) 220 H (70-110) mg/dL Hemoglobin A1c (<=6.0) % Magnesium (1.6-2.3) mg/dL ALT (4-34) U/L Microbiology - Last 24 Hours (Table) 02/17/25 14:08 Blood Culture - Preliminary Blood 02/17/25 18:32 Gram Stain - Preliminary Sputum Assessment and Plan Assessment: Acute hypoxemic respiratory failure secondary to an acute exacerbation of mild intermittent chronic bronchial asthma, mild vascular congestion requiring intubation and mechanical ventilatory support on 02/17/2025 Leukocytosis secondary to above Hyponatremia Hyperglycemia Lactic acidosis Transaminitis History of mild intermittent chronic bronchial asthma Hypothyroidism History of developmental delay resides in a nursing home Plan: The patient was seen and evaluated Chest x-ray, ABGs, labs and medications reviewed Continue DuoNeb inhalations Continue Pulmicort and Perforomist inhalations Continue Solu-Medrol Lovenox for DVT prophylaxis Protonix for GI prophylaxis Propofol currently on hold Will proceed with a daily interruption of sedation Weaning trial if tolerated We will continue to follow I have personally seen and examined the patient, performed the documentation and the assessment and plan as written. Number of minutes spent on the visit: 15 Dictation was produced using [employer] dictation software. Please excuse any grammatical, word or spelling errors.
--- NOTE | 2025-02-19 11:36 | P.PN ---
Subjective Progress Note Date: 02/19/25 54 year old F with PMH of developmental delay, Asthma, Bipolar/Schizophrenia, Hypothyroid presents to the ED for shortness of breath, cough productive of green-yellow sputum for the past 2 days. History is limited as patient is on continuous BiPAP 12/6 FiO2 50%. She reports feeling thirsty and would like the BiPAP off. She denies any nausea or vomiting, fever or chills, chest pain or lightheadedness. No changes in urination or bowel habits. In the ED she underwent extensive evaluation. BP 109/62, HR 91, T 98.1F, 68% on RA, RR 24. CBC, Coag panel, CMP significant for WBC 21.8, RBC 3.79, Hg 11.9, Hct 34.9, Plt 444, Na 126, Cl 87, glu 258, Ca 8.3, AST 74, ALT 123, alk phos 301. BNP 2580. CRP 8.9. VBG pH 7.33, pCO2 49. Lactic acid 6.1. COVID, RSV, Flu neg. CXR shows bilateral interstitial opacities. EKG shows sinus rhythm with no ST elevation. Patient is started on Rocephin/Azithromycin, continuous BiPAP, bronchodilators and admitted for ICU for further workup and management. Intubated overnight. 02/18 Patient was seen and examined. Intubated. Vent settings rate 28, tidal volume 400, PEEP 5, FiO2 50%. Sedation with Propofol at 50 mcg/kg/min. Antibiotics include Rocephin and Azithromycin. CT brain done yesterday for abnormal pupil size showing no acute process and deformity of the nasal bones bilaterally. CBC and CMP significant for RBC 3.11, Hg 9.7, Hct 28.9, bicarb 31, glu 183, ALT 88, alk phos 208, alb 2.7. Mag 2.8. ABG pH 7.47, pCO2 42, pO2 93 on FiO2 50. CXR shows diffuse interstitial infiltrates. Echo shows EF 55-60% with mild LVH. 02/19 Patient was seen and examined. Extubated. Now on 10L NC. Procal 0.18, antibiotics include Azithromycin, Rocephin has been discontinued. Lasix 40 mg IV x 1 today. CBC and CMP significant for WBC 13.19, RBC 3.28, Hg 10.2, Hct 31.1, bicarb 32, glu 215, ALT 68. Mag 2.8. A1c 7. ABG pH 7.48, pCO2 45, pO2 72 on FiO2 50. CXR shows slightly improved diffuse interstitial infiltrates. General: toxic, no distress Derm: warm, dry Head: atraumatic, normocephalic, symmetric Mouth: no lip lesion, mucus membranes moist Cardiovascular: S1S2 tachy, no murmur Lungs: Decreased BS bilaterally, no rales Abd: Soft. Non tender to palpation. Ext: no gross muscle atrophy, no edema, no contractures Neuro: No focal neurologic deficits. Psych: Alert and oriented. Based on my assessment of this patient, this patient meets a high complexity level of care. Acute hypoxic respiratory failure due to below Sepsis secondary to community acquired pneumonia: Procal 0.18. Completed 3 days of Azithromycin. LR discontinued. Sputum and Blood Cx neg so far. Legionella Ag neg. DuoNeb QID scheduled and Q2H PRN. Mucinex 1200 mg PO BID. Telemetry monitoring. Supplemental O2 to maintain O2 sat > 92%. Pulmonary on board. Acute asthma exacerbation: Bronchodilators as above. Pulmicort 0.5 mg INH BID. Perforomist 20 mcg INH BID. SoluMedrol 40 mg IV Q8H. Transaminitis: Unknown etiology. Improving. Normocytic anemia: Possibly iron def. anemia. No signs of active bleeding. Acute drop is likely dilutional. Hypothyroid: Synthroid 75 mcg PO QD. Bipolar and Schizophrenia: Latuda 20 mg PO QHS. Remeron 15 mg PO QHS. Sertraline 100 mg PO QD. Resolved: Lactic acidosis, HypoNa CODE STATUS: FULL CODE. DVT Prophylaxis: Lovenox SQ GI Prophylaxis: Protonix IV Designated medical POA if patient is not able to make medical decisions for themselves: I have reviewed the following x ray consultant notes: Pulm note. I have reviewed the results of the following tests: As above. I have ordered the following tests: As above. I have discussed the care of this patient with the following independent historian: ANDRES. I have independently interpreted the following test below: CXR I have discussed the management of this patient with the following physician: Objective - Vital Signs Vital signs: Vital Signs Temp 97.6 F 02/19/25 08:00 Pulse 95 02/19/25 11:00 Resp 20 02/19/25 11:00 BP 157/79 02/19/25 11:00 Pulse Ox 92 L 02/19/25 11:00 FiO2 50 02/19/25 09:08 Intake & Output 02/18/25 02/19/25 02/19/25 18:59 06:59 18:59 Intake Total 9083.919 8388.581 481.889 Output Total 033 739 4059 Balance 1052.568 829.581 -2388.111 Weight 86.7 kg 86.8 kg 86.8 kg Intake: IV 1060 900 225 Lactated Ringers 1,000 ml 1010 900 225 @ 75 mls/hr IV .[id number] [facility] Rx#:[id number] cefTRIAXone 2 gm In 50 Sodium Chloride 0.9% 50 ml @ 100 mls/hr IVPB ONCE STA Rx#:[id number] Intake, IV Titration 313.568 279.581 91.889 Amount propofoL 1,000 mg In 313.568 279.581 91.889 Empty Bag 1 bag @ 15 MCG/ KG/MIN 7.552 mls/hr IV . [id number] [facility] Rx#:[id number] Tube Feeding 225 300 55 Other 90 110 Output: Gastric Drainage 30 Urine 311 897 7007 Other: Voiding Method Indwelling Catheter Indwelling Catheter Indwelling Catheter # Bowel Movements 0 0 0 ABP, PAP, CO, CI - Last Documented Arterial Blood Pressure 148/93 - Labs CBC & Chem 7: 02/19/25 05:14 02/19/25 05:14 Labs: Abnormal Lab Results - Last 24 Hours (Table) 02/18/25 02/18/25 02/19/25 Range/Units 12:01 17:50 00:21 WBC (4.50-10.00) 10*3/uL RBC (4.10-5.20) 10*6/uL Hgb (12.0-15.0) g/dL Hct (37.2-46.3) % Immature Gran # (0.00-0.04) 10*3/uL Neutrophils # (1.80-7.70) 10*3/uL Eosinophils # (0.04-0.35) 10*3/uL ABG pH (7.35-7.45) ABG pO2 (83-108) mmHg ABG HCO3 (21-25) mmol/L ABG Total CO2 (19-24) mmol/L Hemoglobin (11.4-16.0) gm/dL Carbon Dioxide (22-30) mmol/L Glucose (74-99) mg/dL POC Glucose (mg/dL) 161 H 219 H 198 H (70-110) mg/dL Hemoglobin A1c (<=6.0) % Magnesium (1.6-2.3) mg/dL ALT (4-34) U/L 02/19/25 02/19/25 02/19/25 Range/Units 05:14 05:14 05:14 WBC 13.19 H (4.50-10.00) 10*3/uL RBC 3.28 L (4.10-5.20) 10*6/uL Hgb 10.2 L (12.0-15.0) g/dL Hct 31.1 L (37.2-46.3) % Immature Gran # 0.78 H (0.00-0.04) 10*3/uL Neutrophils # 10.76 H (1.80-7.70) 10*3/uL Eosinophils # 0.00 L (0.04-0.35) 10*3/uL ABG pH (7.35-7.45) ABG pO2 (83-108) mmHg ABG HCO3 (21-25) mmol/L ABG Total CO2 (19-24) mmol/L Hemoglobin (11.4-16.0) gm/dL Carbon Dioxide 32 H (22-30) mmol/L Glucose 215 H (74-99) mg/dL POC Glucose (mg/dL) (70-110) mg/dL Hemoglobin A1c 7.0 H (<=6.0) % Magnesium 2.8 H (1.6-2.3) mg/dL ALT 68 H (4-34) U/L 02/19/25 02/19/25 Range/Units 05:36 06:19 WBC (4.50-10.00) 10*3/uL RBC (4.10-5.20) 10*6/uL Hgb (12.0-15.0) g/dL Hct (37.2-46.3) % Immature Gran # (0.00-0.04) 10*3/uL Neutrophils # (1.80-7.70) 10*3/uL Eosinophils # (0.04-0.35) 10*3/uL ABG pH 7.48 H (7.35-7.45) ABG pO2 72 L (83-108) mmHg ABG HCO3 33 H (21-25) mmol/L ABG Total CO2 35 H (19-24) mmol/L Hemoglobin 10.2 L (11.4-16.0) gm/dL Carbon Dioxide (22-30) mmol/L Glucose (74-99) mg/dL POC Glucose (mg/dL) 220 H (70-110) mg/dL Hemoglobin A1c (<=6.0) % Magnesium (1.6-2.3) mg/dL ALT (4-34) U/L Microbiology - Last 24 Hours (Table) 02/17/25 18:32 Gram Stain - Preliminary Sputum Sputum Culture - Preliminary 02/17/25 14:08 Blood Culture - Preliminary Blood
[2025-02-19 11:45] LABS: Glucose,Whole Blood 190 mg/dL (70-110)
[2025-02-19 13:05] LABS: Allen Test Performed? no
[2025-02-19 16:19] LABS: Glucose,Whole Blood 155 mg/dL (70-110)
[2025-02-19] MEDS: NICOTINE 7MG/24HR PATCH TRANSDERM SCH (16:19)
[2025-02-19] MEDS: INSULIN LISPRO (HumaLOG) 100 UNIT/ML 10 mL VL SQ SCH (16:23)
[2025-02-19 20:15] LABS: Glucose,Whole Blood 178 mg/dL (70-110)
[2025-02-20 03:44] LABS: ABG Base Excess 11.7 mmol/L; ABG HCO3 37 mmol/L (21-25); ABG Oxygen Saturation 99.8 % (94-97); ABG PCO2 53 mmHg (35-45); ABG PH 7.46 (7.35-7.45); ABG PO2 206 mmHg (83-108); ABG TCO2 39 mmol/L (19-24); Allen Test Performed? Yes
[2025-02-20 05:10] LABS: Basophils # (A) 0.08 10*3/uL (0.00-0.10); Basophils % (A) 0.5 %; HCT 33.4 % (37.2-46.3); Lymphocytes # (A) 1.12 10*3/uL (0.90-5.00); Lymphocytes % (A) 7.2 %; MCH 31.9 pg (27.0-32.0); MCHC 32.9 g/dL (32.0-37.0); MCV 96.8 fL (80.0-97.0); Mean Platelet Volume 9.7 fL (9.5-12.2); Monocytes # (A) 0.61 10*3/uL (0.20-1.00); Monocytes % (A) 3.9 %; Neutrophils # (A) 12.89 10*3/uL (1.80-7.70); Neutrophils % (A) 82.6 %; Platelet Count 383 10*3/uL (140-440); RBC 3.45 10*6/uL (4.10-5.20); RDW 13.8 % (11.5-14.5); WBC 15.61 10*3/uL (4.50-10.00)
[2025-02-20 05:29] LABS: African American GFR (CKD) >90 (>60 ml/min/1.73 sqM); Anion Gap 5 mmol/L; Blood Urea Nitrogen 17 mg/dL (7-17); Calcium 8.5 mg/dL (8.4-10.2); Carbon Dioxide 38 mmol/L (22-30); Chloride 97 mmol/L (98-107); Glucose 150 mg/dL (74-99); Non-African American GFR(CKD) >90 (>60 ml/min/1.73 sqM); Potassium 3.9 mmol/L (3.5-5.1); Sodium 140 mmol/L (137-145)
[2025-02-20 06:04] LABS: Glucose,Whole Blood 165 mg/dL (70-110)
[2025-02-20 06:16] LABS: RBC Morphology Normal
--- NOTE | 2025-02-20 06:53 | XR ---
EXAMINATION TYPE: XR chest 1V DATE OF EXAM: 02/20/2025 COMPARISON: 02/19/2025 CLINICAL INDICATION: Female, 54 years old with history of line placement; TECHNIQUE: Single frontal view of the chest is obtained. FINDINGS: There is interval removal of the ET tube and NG tube. There is no change in the diffuse interstitial process. The heart size is normal. There is no airspace consolidation. There is no pleural effusion or pneumothorax. The osseous structu res are intact. IMPRESSION: No change in the diffuse interstitial process consistent with either pulmonary edema or interstitial pneumonia. [facility], , 02/20/2025 6:50 AM
[2025-02-20] MEDS: IPRATROPIUM-ALBUTEROL 3 ML NEB INHALATION SCH (07:59)
[2025-02-20] MEDS: POTASSIUM CHLORIDE 10 MEQ in WATER FOR INJECTION 1 100ML.BAG IVPB SCH (08:41)
--- NOTE | 2025-02-20 09:50 | P.PN ---
Subjective Progress Note Date: 02/20/25 This is a 54-year-old female patient who has developmental delays and resides in a longterm. She also has a history of mild intermittent chronic bronchial asthma, hypothyroidism. She was brought into the emergency room today with a 2- day history of increasing shortness of breath cough and congestion. She did see a PCP and was initiated on steroids without much improvement. Chest x-ray reveals interstitial changes suspect bronchitis, chronic asthma, mild pulmonary congestion. White count 21.8. Hemoglobin 11.9. Platelets 444. Sodium 126. Potassium 3.7. Bicarb 27. BUN 14. Creatinine 0.61. Glucose 258. Lactic acid 6.1. AST 74. ALT 123. C-reactive protein 8.9. proBNP 2580. Viral screen negative for influenza A/B, RSV and COVID. She is seen today in consultation in the ER. She is currently sitting up on a stretcher. She is requiring BiPAP 12/6 and 50% FiO2 with O2 saturations in the mid 90s. She is alert. She is afebrile. Hemodynamically stable. The patient is seen today February 18, 2025 in follow-up in the intensive care unit. Pulmonary status continued to deteriorate and subsequently she was intubated and placed on mechanical ventilator approximately 6:30 last evening. She is currently in assist-control mode at a rate of 28, tidal volume 400, FiO2 50%, PEEP of 5. Morning arterial blood gases revealed a PaO2 of 93, pCO2 42 and a pH of 7.47. White count 9.4. Hemoglobin 9.7. Platelets 272. Sodium 139. Potassium 3.5. Bicarb 31. BUN 9. Creatinine 0.60. Glucose 183. Per minute. Lactated Ringer's at 130 mL/h. On DuoNeb inhalations every 4 hours, Pulmicort and Perforomist inhalations, IV Solu-Medrol. She is on antibiotics in the form of ceftriaxone and azithromycin. Procalcitonin was negative at 0.18. Lovenox for DVT prophylaxis. Sputum culture pending. The patient is seen today February 19, 2025 in follow-up in the intensive care unit. She remains intubated on the mechanical ventilator currently in assist- control mode at a rate of 28, tidal volume 400, FiO2 50% and a PEEP of 5. Morning blood gases revealed a PaO2 of 72, [id number] and a pH of 7.48. She has lactated Ringer's running at 75 mL/h. Propofol presently on hold for daily interruption of sedation. She is being fed with vital HP 25 mL/h which is goal. Chest x-ray reveals mild interstitial edema with slight improvement. Blood culture revealed no growth. Sputum culture reveals no growth. White count 13.1. Hemoglobin 10.2. Platelets 332. Sodium 139. Potassium 4.0. Bicarb 32. BUN 16. Creatinine 0.65. Glucose 215. She remains on DuoNeb and elations, Pulmicort and Perforomist inhalations, IV Solu-Medrol. Lovenox for DVT prophylaxis. Protonix for GI prophylaxis. The patient is seen today February 20, 2025 in follow-up in the intensive care unit. She was extubated yesterday. She is currently on BiPAP 12/5 and 50% FiO2. No IV fluids. Morning blood gases revealed a PaO2 of 206, pCO2 53 and a pH of 7.46. She remains on DuoNeb inhalations, Pulmicort and Perforomist inhalations, IV Solu-Medrol. NicoDerm patch in place. Chest x-ray reveals no change in the diffuse interstitial process consistent with pulmonary edema versus interstitial pneumonia. Culture revealed no growth. Blood culture revealed no growth. White count 15.6. Hemoglobin 11.0. Platelets 383. Sodium 140. Potassium 3.9. Bicarb 38. BUN 17. Creatinine 0.62. Glucose 150. She remains on Lovenox for DVT prophylaxis. Protonix for GI prophylaxis. Objective - Vital Signs Vital signs: Vital Signs Temp 98 F 02/20/25 08:00 Pulse 96 02/20/25 09:00 Resp 17 02/20/25 09:00 BP 151/92 02/20/25 09:00 Pulse Ox 94 L 02/20/25 09:00 FiO2 50 02/20/25 08:00 Intake & Output 02/19/25 02/20/25 02/20/25 18:59 06:59 18:59 Intake Total 1201.889 480 200 Output Total 5641 1710 390 Balance -4423.111 -1230 -190 Weight 86.8 kg 84.8 kg Intake: IV 225 Lactated Ringers 1,000 ml 225 @ 75 mls/hr IV .[id number] [facility] Rx#:[id number] Intake, IV Titration 91.889 Amount propofoL 1,000 mg In 91.889 Empty Bag 1 bag @ 15 MCG/ KG/MIN 7.552 mls/hr IV . [id number] [facility] Rx#:[id number] Oral 720 480 200 Tube Feeding 55 Other 110 Output: Gastric Drainage 30 Urine 5595 1710 390 Other: Voiding Method Indwelling Catheter Indwelling Catheter Indwelling Catheter # Bowel Movements 0 ABP, PAP, CO, CI - Last Documented Arterial Blood Pressure 148/93 - Exam GENERAL EXAM: Alert 54-year-old female patient, on BiPAP 12/5 and 50% FiO2, in mild respiratory distress. HEAD: Normocephalic. EYES: Normal reaction of pupils, equal size. NOSE: Clear with pink turbinates. THROAT: No erythema or exudates. NECK: No masses, no JVD. CHEST: No chest wall deformity. LUNGS: Equal air entry with bilateral scattered rhonchi. CVS: S1 and S2 normal with no audible murmur, regular rhythm. ABDOMEN: No hepatosplenomegaly, normal bowel sounds, no guarding or rigidity. SPINE: No scoliosis or deformity SKIN: No rashes CENTRAL NERVOUS SYSTEM: No focal deficits, tone is normal in all 4 extremities. EXTREMITIES: There is no peripheral edema. No clubbing, no cyanosis. Peripheral pulses are intact. - Labs CBC & Chem 7: 02/20/25 04:31 02/20/25 04:31 Labs: Abnormal Lab Results - Last 24 Hours (Table) 02/19/25 02/19/25 02/19/25 Range/Units 09:39 11:43 16:17 WBC (4.50-10.00) 10*3/uL RBC (4.10-5.20) 10*6/uL Hgb (12.0-15.0) g/dL Hct (37.2-46.3) % Immature Gran # (0.00-0.04) 10*3/uL Neutrophils # (1.80-7.70) 10*3/uL Eosinophils # (0.04-0.35) 10*3/uL ABG pH (7.35-7.45) ABG pCO2 53 H (35-45) mmHg ABG pO2 111 H (83-108) mmHg ABG HCO3 33 H (21-25) mmol/L ABG Total CO2 34 H (19-24) mmol/L ABG O2 Saturation 98.1 H (94-97) % Chloride (98-107) mmol/L Carbon Dioxide (22-30) mmol/L Glucose (74-99) mg/dL POC Glucose (mg/dL) 190 H 155 H (70-110) mg/dL 02/19/25 02/20/25 02/20/25 Range/Units 20:14 03:42 04:31 WBC 15.61 H (4.50-10.00) 10*3/uL RBC 3.45 L (4.10-5.20) 10*6/uL Hgb 11.0 L (12.0-15.0) g/dL Hct 33.4 L (37.2-46.3) % Immature Gran # 0.91 H (0.00-0.04) 10*3/uL Neutrophils # 12.89 H (1.80-7.70) 10*3/uL Eosinophils # 0.00 L (0.04-0.35) 10*3/uL ABG pH 7.46 H (7.35-7.45) ABG pCO2 53 H (35-45) mmHg ABG pO2 206 H (83-108) mmHg ABG HCO3 37 H (21-25) mmol/L ABG Total CO2 39 H (19-24) mmol/L ABG O2 Saturation 99.8 H (94-97) % Chloride (98-107) mmol/L Carbon Dioxide (22-30) mmol/L Glucose (74-99) mg/dL POC Glucose (mg/dL) 178 H (70-110) mg/dL 02/20/25 02/20/25 Range/Units 04:31 06:03 WBC (4.50-10.00) 10*3/uL RBC (4.10-5.20) 10*6/uL Hgb (12.0-15.0) g/dL Hct (37.2-46.3) % Immature Gran # (0.00-0.04) 10*3/uL Neutrophils # (1.80-7.70) 10*3/uL Eosinophils # (0.04-0.35) 10*3/uL ABG pH (7.35-7.45) ABG pCO2 (35-45) mmHg ABG pO2 (83-108) mmHg ABG HCO3 (21-25) mmol/L ABG Total CO2 (19-24) mmol/L ABG O2 Saturation (94-97) % Chloride 97 L (98-107) mmol/L Carbon Dioxide 38 H (22-30) mmol/L Glucose 150 H (74-99) mg/dL POC Glucose (mg/dL) 165 H (70-110) mg/dL Microbiology - Last 24 Hours (Table) 02/17/25 18:32 Gram Stain - Final Sputum Sputum Culture - Final 02/17/25 14:08 Blood Culture - Preliminary Blood Assessment and Plan Assessment: Acute hypoxemic respiratory failure secondary to an acute exacerbation of mild intermittent chronic bronchial asthma, mild pulmonary vascular congestion requiring intubation and mechanical ventilatory support on 02/17/2025, extubated 02/19/2025. Currently on BiPAP 12/5 and 50% FiO2 Leukocytosis secondary to above Hyponatremia Hyperglycemia Lactic acidosis Transaminitis History of mild intermittent chronic bronchial asthma Hypothyroidism History of developmental delay resides in a longterm Plan: The patient was seen and evaluated Chest x-ray, ABGs, labs and medications reviewed Currently on BiPAP 12/5 and 50% FiO2 Continue DuoNeb inhalations Continue Pulmicort and Perforomist inhalations Continue Solu-Medrol Lovenox for DVT prophylaxis Protonix for GI prophylaxis Prognosis is guarded We will continue to follow I have personally seen and examined the patient, performed the documentation and the assessment and plan as written. Number of minutes spent on the visit: 10 Dictation was produced using [employer] dictation software. Please excuse any grammatical, word or spelling errors.
--- NOTE | 2025-02-20 10:23 | P.PN ---
Subjective Progress Note Date: 02/20/25 54 year old F with PMH of developmental delay, Asthma, Bipolar/Schizophrenia, Hypothyroid presents to the ED for shortness of breath, cough productive of green-yellow sputum for the past 2 days. History is limited as patient is on continuous BiPAP 12/6 FiO2 50%. She reports feeling thirsty and would like the BiPAP off. She denies any nausea or vomiting, fever or chills, chest pain or lightheadedness. No changes in urination or bowel habits. In the ED she underwent extensive evaluation. BP 109/62, HR 91, T 98.1F, 68% on RA, RR 24. CBC, Coag panel, CMP significant for WBC 21.8, RBC 3.79, Hg 11.9, Hct 34.9, Plt 444, Na 126, Cl 87, glu 258, Ca 8.3, AST 74, ALT 123, alk phos 301. BNP 2580. CRP 8.9. VBG pH 7.33, pCO2 49. Lactic acid 6.1. COVID, RSV, Flu neg. CXR shows bilateral interstitial opacities. EKG shows sinus rhythm with no ST elevation. Patient is started on Rocephin/Azithromycin, continuous BiPAP, bronchodilators and admitted for ICU for further workup and management. Intubated overnight on 02/17. Extubated on 02/19. Pro-luis 0.18, completed course of Azithromycin and Rocephin discontinued. CT brain done for abnormal pupil size showing no acute process and deformity of the nasal bones bilaterally. Echo shows EF 55-60% with mild LVH. Given a dose of Lasix IV 02/19 and 02/20. 02/20 Patient was seen and examined. Currently on 6L HFNC. Required BiPAP overnight. CBC and BMP significant for WBC 15.61, RBC 3.45, Hg 11, Hct 33.4, Cl 97, bicarb 38, glu 150. ABG pH 7.46, pCO2 53, pO2 206 on FiO2 60. CXR shows persistent diffuse interstitial infiltrates. Additional dose of Lasix 40 mg IV ordered today. General: toxic, no distress Derm: warm, dry Head: atraumatic, normocephalic, symmetric Mouth: no lip lesion, mucus membranes moist Cardiovascular: S1S2 tachy, no murmur Lungs: Decreased BS bilaterally, no rales Ext: no gross muscle atrophy, no edema, no contractures Neuro: No focal neurologic deficits. Psych: Alert and oriented. Based on my assessment of this patient, this patient meets a high complexity level of care. Acute hypoxic respiratory failure due to below Sepsis secondary to community acquired pneumonia: Procal 0.18. Completed 3 days of Azithromycin. LR discontinued. Lasix 40 mg IV x 1 on 02/19 + 02/20. Sputum and Blood Cx neg so far. Legionella Ag neg. DuoNeb QID scheduled and Q2H PRN. Mucinex 1200 mg PO BID. Telemetry monitoring. Supplemental O2 to maintain O2 sat > 92%. Pulmonary on board. Acute asthma exacerbation: Bronchodilators as above. Pulmicort 0.5 mg INH BID. Perforomist 20 mcg INH BID. SoluMedrol 40 mg IV Q8H. Transaminitis: Unknown etiology. Improving. Normocytic anemia: Possibly iron def. anemia. No signs of active bleeding. Acute drop is likely dilutional. Hypothyroid: Synthroid 75 mcg PO QD. Bipolar and Schizophrenia: Latuda 20 mg PO QHS. Remeron 15 mg PO QHS. Sertraline 100 mg PO QD. Resolved: Lactic acidosis, HypoNa CODE STATUS: FULL CODE. DVT Prophylaxis: Lovenox SQ GI Prophylaxis: Protonix IV Designated medical POA if patient is not able to make medical decisions for themselves: I have reviewed the following applications consultant notes: Pulm note. I have reviewed the results of the following tests: CBC, BMP, ABG. I have ordered the following tests: CBC, BMP, Mag and CXR in the AM. I have discussed the care of this patient with the following independent historian: ANDRES. I have independently interpreted the following test below: CXR I have discussed the management of this patient with the following physician: Objective - Vital Signs Vital signs: Vital Signs Temp 98 F 02/20/25 08:00 Pulse 98 02/20/25 08:21 Resp 25 H 02/20/25 08:00 BP 165/85 02/20/25 08:00 Pulse Ox 98 02/20/25 08:00 FiO2 50 02/20/25 08:00 Intake & Output 02/19/25 02/20/25 02/20/25 18:59 06:59 18:59 Intake Total 1201.889 480 Output Total 5625 1710 180 Balance -4423.111 -1230 -180 Weight 86.8 kg 84.8 kg Intake: IV 225 Lactated Ringers 1,000 ml 225 @ 75 mls/hr IV .[id number] [facility] Rx#:[id number] Intake, IV Titration 91.889 Amount propofoL 1,000 mg In 91.889 Empty Bag 1 bag @ 15 MCG/ KG/MIN 7.552 mls/hr IV . [id number] [facility] Rx#:[id number] Oral 720 480 Tube Feeding 55 Other 110 Output: Gastric Drainage 30 Urine 5595 1710 180 Other: Voiding Method Indwelling Catheter Indwelling Catheter Indwelling Catheter # Bowel Movements 0 ABP, PAP, CO, CI - Last Documented Arterial Blood Pressure 148/93 - Labs CBC & Chem 7: 02/20/25 04:31 02/20/25 04:31 Labs: Abnormal Lab Results - Last 24 Hours (Table) 02/19/25 02/19/25 02/19/25 Range/Units 09:39 11:43 16:17 WBC (4.50-10.00) 10*3/uL RBC (4.10-5.20) 10*6/uL Hgb (12.0-15.0) g/dL Hct (37.2-46.3) % Immature Gran # (0.00-0.04) 10*3/uL Neutrophils # (1.80-7.70) 10*3/uL Eosinophils # (0.04-0.35) 10*3/uL ABG pH (7.35-7.45) ABG pCO2 53 H (35-45) mmHg ABG pO2 111 H (83-108) mmHg ABG HCO3 33 H (21-25) mmol/L ABG Total CO2 34 H (19-24) mmol/L ABG O2 Saturation 98.1 H (94-97) % Chloride (98-107) mmol/L Carbon Dioxide (22-30) mmol/L Glucose (74-99) mg/dL POC Glucose (mg/dL) 190 H 155 H (70-110) mg/dL 02/19/25 02/20/25 02/20/25 Range/Units 20:14 03:42 04:31 WBC 15.61 H (4.50-10.00) 10*3/uL RBC 3.45 L (4.10-5.20) 10*6/uL Hgb 11.0 L (12.0-15.0) g/dL Hct 33.4 L (37.2-46.3) % Immature Gran # 0.91 H (0.00-0.04) 10*3/uL Neutrophils # 12.89 H (1.80-7.70) 10*3/uL Eosinophils # 0.00 L (0.04-0.35) 10*3/uL ABG pH 7.46 H (7.35-7.45) ABG pCO2 53 H (35-45) mmHg ABG pO2 206 H (83-108) mmHg ABG HCO3 37 H (21-25) mmol/L ABG Total CO2 39 H (19-24) mmol/L ABG O2 Saturation 99.8 H (94-97) % Chloride (98-107) mmol/L Carbon Dioxide (22-30) mmol/L Glucose (74-99) mg/dL POC Glucose (mg/dL) 178 H (70-110) mg/dL 02/20/25 02/20/25 Range/Units 04:31 06:03 WBC (4.50-10.00) 10*3/uL RBC (4.10-5.20) 10*6/uL Hgb (12.0-15.0) g/dL Hct (37.2-46.3) % Immature Gran # (0.00-0.04) 10*3/uL Neutrophils # (1.80-7.70) 10*3/uL Eosinophils # (0.04-0.35) 10*3/uL ABG pH (7.35-7.45) ABG pCO2 (35-45) mmHg ABG pO2 (83-108) mmHg ABG HCO3 (21-25) mmol/L ABG Total CO2 (19-24) mmol/L ABG O2 Saturation (94-97) % Chloride 97 L (98-107) mmol/L Carbon Dioxide 38 H (22-30) mmol/L Glucose 150 H (74-99) mg/dL POC Glucose (mg/dL) 165 H (70-110) mg/dL Microbiology - Last 24 Hours (Table) 02/17/25 14:08 Blood Culture - Preliminary Blood 02/17/25 18:32 Gram Stain - Preliminary Sputum Sputum Culture - Preliminary
[2025-02-20] MEDS: FUROSEMIDE 10 MG/ML 4 ML VIAL IV STA (10:55)
[2025-02-20 11:21] LABS: Glucose,Whole Blood 149 mg/dL (70-110)
[2025-02-20 16:17] LABS: Glucose,Whole Blood 209 mg/dL (70-110)
[2025-02-20 19:56] LABS: Glucose,Whole Blood 140 mg/dL (70-110)
[2025-02-21 05:59] LABS: HCT 39.6 % (37.2-46.3); HGB 12.9 g/dL (12.0-15.0); MCH 31.1 pg (27.0-32.0); MCHC 32.6 g/dL (32.0-37.0); MCV 95.4 fL (80.0-97.0); Mean Platelet Volume 9.5 fL (9.5-12.2); Platelet Count 494 10*3/uL (140-440); RBC 4.15 10*6/uL (4.10-5.20); RDW 13.4 % (11.5-14.5); WBC 16.86 10*3/uL (4.50-10.00)
[2025-02-21 06:18] LABS: African American GFR (CKD) >90 (>60 ml/min/1.73 sqM); Anion Gap 7 mmol/L; Blood Urea Nitrogen 20 mg/dL (7-17); Carbon Dioxide 37 mmol/L (22-30); Chloride 93 mmol/L (98-107); Glucose 171 mg/dL (74-99); Magnesium 2.8 mg/dL (1.6-2.3); Non-African American GFR(CKD) >90 (>60 ml/min/1.73 sqM); Potassium 4.5 mmol/L (3.5-5.1); Sodium 137 mmol/L (137-145)
[2025-02-21 06:37] LABS: Glucose,Whole Blood 151 mg/dL (70-110)
--- NOTE | 2025-02-21 07:06 | XR ---
EXAMINATION TYPE: XR chest 1V portable DATE OF EXAM: 02/21/2025 COMPARISON: 02/19/2025 CLINICAL INDICATION: Female, 54 years old with history of PNA; TECHNIQUE: Single frontal view of the chest is obtained. FINDINGS: There is been interval removal of the ET tube and NG tube. There is mild diffuse interstitial opacity decreased compared to the prior study. Findings possibly r eflect mild improvement in the diffuse interstitial edema or pneumonia. There is no pleural effusion or pneumothorax. Heart size is normal. The osseous structures are intact . IMPRESSION: Reduction in the diffuse mild interstitial process as described above. [facility], , 02/21/2025 7:03 AM
[2025-02-21 08:10] LABS: Glucose,Whole Blood 169 mg/dL (70-110)
[2025-02-21] MEDS: predniSONE 10 MG TAB PO SCH (08:29)
--- NOTE | 2025-02-21 08:53 | P.PN ---
Subjective Progress Note Date: 02/21/25 This is a 54-year-old female patient who has developmental delays and resides in a halfway. She also has a history of mild intermittent chronic bronchial asthma, hypothyroidism. She was brought into the emergency room today with a 2- day history of increasing shortness of breath cough and congestion. She did see a PCP and was initiated on steroids without much improvement. Chest x-ray reveals interstitial changes suspect bronchitis, chronic asthma, mild pulmonary congestion. White count 21.8. Hemoglobin 11.9. Platelets 444. Sodium 126. Potassium 3.7. Bicarb 27. BUN 14. Creatinine 0.61. Glucose 258. Lactic acid 6.1. AST 74. ALT 123. C-reactive protein 8.9. proBNP 2580. Viral screen negative for influenza A/B, RSV and COVID. She is seen today in consultation in the ER. She is currently sitting up on a stretcher. She is requiring BiPAP 12/6 and 50% FiO2 with O2 saturations in the mid 90s. She is alert. She is afebrile. Hemodynamically stable. The patient is seen today February 18, 2025 in follow-up in the intensive care unit. Pulmonary status continued to deteriorate and subsequently she was intubated and placed on mechanical ventilator approximately 6:30 last evening. She is currently in assist-control mode at a rate of 28, tidal volume 400, FiO2 50%, PEEP of 5. Morning arterial blood gases revealed a PaO2 of 93, pCO2 42 and a pH of 7.47. White count 9.4. Hemoglobin 9.7. Platelets 272. Sodium 139. Potassium 3.5. Bicarb 31. BUN 9. Creatinine 0.60. Glucose 183. Per minute. Lactated Ringer's at 130 mL/h. On DuoNeb inhalations every 4 hours, Pulmicort and Perforomist inhalations, IV Solu-Medrol. She is on antibiotics in the form of ceftriaxone and azithromycin. Procalcitonin was negative at 0.18. Lovenox for DVT prophylaxis. Sputum culture pending. The patient is seen today February 19, 2025 in follow-up in the intensive care unit. She remains intubated on the mechanical ventilator currently in assist- control mode at a rate of 28, tidal volume 400, FiO2 50% and a PEEP of 5. Morning blood gases revealed a PaO2 of 72, [id number] and a pH of 7.48. She has lactated Ringer's running at 75 mL/h. Propofol presently on hold for daily interruption of sedation. She is being fed with vital HP 25 mL/h which is goal. Chest x-ray reveals mild interstitial edema with slight improvement. Blood culture revealed no growth. Sputum culture reveals no growth. White count 13.1. Hemoglobin 10.2. Platelets 332. Sodium 139. Potassium 4.0. Bicarb 32. BUN 16. Creatinine 0.65. Glucose 215. She remains on DuoNeb and elations, Pulmicort and Perforomist inhalations, IV Solu-Medrol. Lovenox for DVT prophylaxis. Protonix for GI prophylaxis. The patient is seen today February 20, 2025 in follow-up in the intensive care unit. She was extubated yesterday. She is currently on BiPAP 12/5 and 50% FiO2. No IV fluids. Morning blood gases revealed a PaO2 of 206, pCO2 53 and a pH of 7.46. She remains on DuoNeb inhalations, Pulmicort and Perforomist inhalations, IV Solu-Medrol. NicoDerm patch in place. Chest x-ray reveals no change in the diffuse interstitial process consistent with pulmonary edema versus interstitial pneumonia. Culture revealed no growth. Blood culture revealed no growth. White count 15.6. Hemoglobin 11.0. Platelets 383. Sodium 140. Potassium 3.9. Bicarb 38. BUN 17. Creatinine 0.62. Glucose 150. She remains on Lovenox for DVT prophylaxis. Protonix for GI prophylaxis. The patient is seen today February 21, 2025 in follow-up in the intensive care unit. She is awake and alert in no acute distress. Maintaining O2 saturations in the 90s on 6 L high flow nasal cannula. She did not utilize BiPAP last n ight. White count 16.8. Hemoglobin 12.9. Platelets 494. Sodium 137. Potassium 4.5. Bicarb 37. BUN 20. Creatinine 0.72. Glucose 171. She remains on DuoNeb inhalations, Pulmicort and Perforomist inhalations, Solu-Medrol. Lovenox for DVT prophylaxis. NicoDerm patch in place. Chest x-ray shows reduction in the diffuse mild interstitial process. Objective - Vital Signs Vital signs: Vital Signs Temp 97.9 F 02/21/25 08:00 Pulse 96 02/21/25 08:00 Resp 16 02/21/25 08:00 BP 104/86 02/21/25 08:00 Pulse Ox 98 02/21/25 08:00 FiO2 50 02/20/25 12:00 Intake & Output 02/20/25 02/21/25 02/21/25 18:59 06:59 18:59 Intake Total 650 180 Output Total 4115 1270 185 Balance -3465 -1090 -185 Weight 78.8 kg Intake: IV 200 Potassium Chloride 10 meq 200 In Water For Injection 1 100ml.bag @ 100 mls/hr IVPB Q1H [facility] Rx#: [id number] Oral 450 180 Output: Urine 4115 1270 185 Other: Voiding Method Indwelling Catheter Indwelling Catheter # Bowel Movements 1 ABP, PAP, CO, CI - Last Documented Arterial Blood Pressure 148/93 - Exam GENERAL EXAM: Alert 54-year-old female patient, on 6 L high flow nasal cannula, in no acute respiratory distress. HEAD: Normocephalic. EYES: Normal reaction of pupils, equal size. NOSE: Clear with pink turbinates. THROAT: No erythema or exudates. NECK: No masses, no JVD. CHEST: No chest wall deformity. LUNGS: Equal air entry with bilateral scattered rhonchi. CVS: S1 and S2 normal with no audible murmur, regular rhythm. ABDOMEN: No hepatosplenomegaly, normal bowel sounds, no guarding or rigidity. SPINE: No scoliosis or deformity SKIN: No rashes CENTRAL NERVOUS SYSTEM: No focal deficits, tone is normal in all 4 extremities. EXTREMITIES: There is no peripheral edema. No clubbing, no cyanosis. Peripheral pulses are intact. - Labs CBC & Chem 7: 02/21/25 05:19 02/21/25 05:19 Labs: Abnormal Lab Results - Last 24 Hours (Table) 02/20/25 02/20/25 02/20/25 Range/Units 11:19 16:14 19:55 WBC (4.50-10.00) 10*3/uL Plt Count (140-440) 10*3/uL Chloride (98-107) mmol/L Carbon Dioxide (22-30) mmol/L BUN (7-17) mg/dL Glucose (74-99) mg/dL POC Glucose (mg/dL) 149 H 209 H 140 H (70-110) mg/dL Magnesium (1.6-2.3) mg/dL 02/21/25 02/21/25 02/21/25 Range/Units 05:19 05:19 06:36 WBC 16.86 H (4.50-10.00) 10*3/uL Plt Count 494 H (140-440) 10*3/uL Chloride 93 L (98-107) mmol/L Carbon Dioxide 37 H (22-30) mmol/L BUN 20 H (7-17) mg/dL Glucose 171 H (74-99) mg/dL POC Glucose (mg/dL) 151 H (70-110) mg/dL Magnesium 2.8 H (1.6-2.3) mg/dL 02/21/25 Range/Units 08:08 WBC (4.50-10.00) 10*3/uL Plt Count (140-440) 10*3/uL Chloride (98-107) mmol/L Carbon Dioxide (22-30) mmol/L BUN (7-17) mg/dL Glucose (74-99) mg/dL POC Glucose (mg/dL) 169 H (70-110) mg/dL Magnesium (1.6-2.3) mg/dL Microbiology - Last 24 Hours (Table) 02/17/25 14:08 Blood Culture - Preliminary Blood 02/17/25 18:32 Gram Stain - Final Sputum Sputum Culture - Final Assessment and Plan Assessment: Acute hypoxemic respiratory failure secondary to an acute exacerbation of mild intermittent chronic bronchial asthma, mild pulmonary vascular congestion requiring intubation and mechanical ventilatory support on 02/17/2025, extubated 02/19/2025. Currently on 6 L high flow nasal cannula Leukocytosis secondary to above Hyponatremia Hyperglycemia Lactic acidosis Transaminitis History of mild intermittent chronic bronchial asthma Hypothyroidism History of developmental delay resides in a halfway Plan: The patient was seen and evaluated Chest x-ray, labs and medications reviewed Chest x-ray showing improvement Currently on 6 L high flow nasal cannula Continue DuoNeb inhalations Continue Pulmicort and Perforomist inhalations Discontinue Solu-Medrol Initiate a prednisone taper Lovenox for DVT prophylaxis Protonix for GI prophylaxis We will continue to follow I have personally seen and examined the patient, performed the documentation and the assessment and plan as written. Number of minutes spent on the visit: 10 Dictation was produced using [employer] dictation software. Please excuse any grammatical, word or spelling errors.
--- NOTE | 2025-02-21 10:49 | P.PN ---
Subjective Progress Note Date: 02/21/25 54 year old F with PMH of developmental delay, Asthma, Bipolar/Schizophrenia, Hypothyroid presents to the ED for shortness of breath, cough productive of green-yellow sputum for the past 2 days. History is limited as patient is on continuous BiPAP 12/6 FiO2 50%. She reports feeling thirsty and would like the BiPAP off. She denies any nausea or vomiting, fever or chills, chest pain or lightheadedness. No changes in urination or bowel habits. In the ED she underwent extensive evaluation. BP 109/62, HR 91, T 98.1F, 68% on RA, RR 24. CBC, Coag panel, CMP significant for WBC 21.8, RBC 3.79, Hg 11.9, Hct 34.9, Plt 444, Na 126, Cl 87, glu 258, Ca 8.3, AST 74, ALT 123, alk phos 301. BNP 2580. CRP 8.9. VBG pH 7.33, pCO2 49. Lactic acid 6.1. COVID, RSV, Flu neg. CXR shows bilateral interstitial opacities. EKG shows sinus rhythm with no ST elevation. Patient is started on Rocephin/Azithromycin, continuous BiPAP, bronchodilators and admitted for ICU for further workup and management. Intubated overnight on 02/17. Extubated on 02/19. Pro-luis 0.18, completed course of Azithromycin and Rocephin discontinued. CT brain done for abnormal pupil size showing no acute process and deformity of the nasal bones bilaterally. Echo shows EF 55-60% with mild LVH. Given a dose of Lasix IV 02/19 and 02/20. 02/21 Patient was seen and examined. Currently on 5L NC. Wanting to go home. CBC and BMP significant for WBC 16.86, Plt 494, Cl 93, bicarb 37, glu 171. Mag 2.8. CXR shows mild pulmonary vascular congestion. General: toxic, no distress Derm: warm, dry Head: atraumatic, normocephalic, symmetric Mouth: no lip lesion, mucus membranes moist Cardiovascular: S1S2 reg, no murmur Lungs: Decreased BS bilaterally, no rales Ext: no gross muscle atrophy, no edema, no contractures Neuro: No focal neurologic deficits. Psych: Alert and oriented. Based on my assessment of this patient, this patient meets a high complexity level of care. Acute hypoxic respiratory failure due to below Sepsis secondary to community acquired pneumonia: Procal 0.18. Completed 3 days of Azithromycin. LR discontinued. Lasix 40 mg IV x 1 on 02/19 + 02/20. Sputum and Blood Cx neg so far. Legionella Ag neg. DuoNeb QID scheduled and Q2H PRN. Mucinex 1200 mg PO BID. Telemetry monitoring. Supplemental O2 to maintain O2 sat > 92%. Pulmonary on board. Acute asthma exacerbation: Bronchodilators as above. Pulmicort 0.5 mg INH BID. Perforomist 20 mcg INH BID. SoluMedrol 40 mg IV Q8H switched to Prednisone 30 mg PO QD. Transaminitis: Unknown etiology. Improving. Normocytic anemia: Possibly iron def. anemia. No signs of active bleeding. Acute drop is likely dilutional. Hypothyroid: Synthroid 75 mcg PO QD. Bipolar and Schizophrenia: Latuda 20 mg PO QHS. Remeron 15 mg PO QHS. Sertraline 100 mg PO QD. Resolved: Lactic acidosis, Hyponatremia Patient appears deconditioned. PT consulted. She is pending clinical improvement. CODE STATUS: FULL CODE. DVT Prophylaxis: Lovenox SQ GI Prophylaxis: Protonix IV Designated medical POA if patient is not able to make medical decisions for themselves: I have reviewed the following loans consultant notes: Pulm note. I have reviewed the results of the following tests: CBC, BMP, Mag I have ordered the following tests: CBC and BMP. I have discussed the care of this patient with the following independent historian: ANDRES. I have independently interpreted the following test below: CXR I have discussed the management of this patient with the following physician: Objective - Vital Signs Vital signs: Vital Signs Temp 97.9 F 02/21/25 08:00 Pulse 86 02/21/25 09:00 Resp 16 02/21/25 09:00 BP 130/76 02/21/25 09:00 Pulse Ox 97 02/21/25 09:00 FiO2 50 02/20/25 12:00 Intake & Output 02/20/25 02/21/25 02/21/25 18:59 06:59 18:59 Intake Total 650 180 Output Total 8335 1270 235 Balance -3465 -1090 -235 Weight 78.8 kg Intake: IV 200 Potassium Chloride 10 meq 200 In Water For Injection 1 100ml.bag @ 100 mls/hr IVPB Q1H [facility] Rx#: [id number] Oral 450 180 Output: Urine 4115 1270 235 Other: Voiding Method Indwelling Catheter Indwelling Catheter Indwelling Catheter # Bowel Movements 1 ABP, PAP, CO, CI - Last Documented Arterial Blood Pressure 148/93 - Labs CBC & Chem 7: 02/21/25 05:19 02/21/25 05:19 Labs: Abnormal Lab Results - Last 24 Hours (Table) 02/20/25 02/20/25 02/20/25 Range/Units 11:19 16:14 19:55 WBC (4.50-10.00) 10*3/uL Plt Count (140-440) 10*3/uL Chloride (98-107) mmol/L Carbon Dioxide (22-30) mmol/L BUN (7-17) mg/dL Glucose (74-99) mg/dL POC Glucose (mg/dL) 149 H 209 H 140 H (70-110) mg/dL Magnesium (1.6-2.3) mg/dL 02/21/25 02/21/25 02/21/25 Range/Units 05:19 05:19 06:36 WBC 16.86 H (4.50-10.00) 10*3/uL Plt Count 494 H (140-440) 10*3/uL Chloride 93 L (98-107) mmol/L Carbon Dioxide 37 H (22-30) mmol/L BUN 20 H (7-17) mg/dL Glucose 171 H (74-99) mg/dL POC Glucose (mg/dL) 151 H (70-110) mg/dL Magnesium 2.8 H (1.6-2.3) mg/dL 02/21/25 Range/Units 08:08 WBC (4.50-10.00) 10*3/uL Plt Count (140-440) 10*3/uL Chloride (98-107) mmol/L Carbon Dioxide (22-30) mmol/L BUN (7-17) mg/dL Glucose (74-99) mg/dL POC Glucose (mg/dL) 169 H (70-110) mg/dL Magnesium (1.6-2.3) mg/dL Microbiology - Last 24 Hours (Table) 02/17/25 14:08 Blood Culture - Preliminary Blood 02/17/25 18:32 Gram Stain - Final Sputum Sputum Culture - Final
[2025-02-21 11:50] LABS: Glucose,Whole Blood 194 mg/dL (70-110)
[2025-02-21 16:46] LABS: Glucose,Whole Blood 266 mg/dL (70-110)
[2025-02-21 20:42] LABS: Glucose,Whole Blood 111 mg/dL (70-110)
[2025-02-21] MEDS: LORazepam 1 MG/0.5 ML VIAL IV PRN (23:54)
[2025-02-22 04:27] LABS: African American GFR (CKD) >90 (>60 ml/min/1.73 sqM); Anion Gap 9 mmol/L; Blood Urea Nitrogen 29 mg/dL (7-17); Calcium 8.9 mg/dL (8.4-10.2); Carbon Dioxide 29 mmol/L (22-30); Chloride 96 mmol/L (98-107); Glucose 149 mg/dL (74-99); Non-African American GFR(CKD) >90 (>60 ml/min/1.73 sqM); Potassium 4.5 mmol/L (3.5-5.1); Sodium 134 mmol/L (137-145)
[2025-02-22 05:53] LABS: Glucose,Whole Blood 115 mg/dL (70-110)
[2025-02-22 08:12] LABS: HCT 42.8 % (37.2-46.3); HGB 14.4 g/dL (12.0-15.0); MCH 31.4 pg (27.0-32.0); MCHC 33.6 g/dL (32.0-37.0); MCV 93.4 fL (80.0-97.0); Mean Platelet Volume 10.6 fL (9.5-12.2); Platelet Count 313 10*3/uL (140-440); RBC 4.58 10*6/uL (4.10-5.20); RDW 13.6 % (11.5-14.5); WBC 17.09 10*3/uL (4.50-10.00)
[2025-02-22 11:52] LABS: Glucose,Whole Blood 189 mg/dL (70-110)
--- NOTE | 2025-02-22 14:57 | P.PN ---
Subjective Progress Note Date: 02/22/25 Hospital Course: 54 year old F with PMH of developmental delay, Asthma, Bipolar/Schizophrenia, Hypothyroid presents to the ED for shortness of breath, cough productive of green-yellow sputum for the past 2 days. History is limited as patient is on continuous BiPAP 12/6 FiO2 50%. She reports feeling thirsty and would like the BiPAP off. She denies any nausea or vomiting, fever or chills, chest pain or lightheadedness. No changes in urination or bowel habits. In the ED she underwent extensive evaluation. BP 109/62, HR 91, T 98.1F, 68% on RA, RR 24. CBC, Coag panel, CMP significant for WBC 21.8, RBC 3.79, Hg 11.9, Hct 34.9, Plt 444, Na 126, Cl 87, glu 258, Ca 8.3, AST 74, ALT 123, alk phos 301. BNP 2580. CRP 8.9. VBG pH 7.33, pCO2 49. Lactic acid 6.1. COVID, RSV, Flu neg. CXR shows bilateral interstitial opacities. EKG shows sinus rhythm with no ST elevation. Patient is started on Rocephin/Azithromycin, continuous BiPAP, bronchodilators and admitted for ICU for further workup and management. Intubated overnight on 02/17. Extubated on 02/19. Pro-luis 0.18, completed course of Azithromycin and Rocephin discontinued. CT brain done for abnormal pupil size showing no acute process and deformity of the nasal bones bilaterally. Echo shows EF 55-60% with mild LVH. Given a dose of Lasix IV 02/19 and 02/20. 02/22: Seen examined at bedside, no complaints. She was on room air, however dropped down to 87 resting and was placed back on oxygen. Discussed with pulmonology. Leukocytosis stable 17. Hemoglobin normal and stable, sodium 134, chloride 96, potassium normal, creatinine normal, glucose is controlled. Blood pressure 133/88 Pertinent positives and negatives as discussed above, a complete review of systems was performed and all other systems are negative. Vitals Signs Reviewed. General: [nontoxic], [no distress], [appears at stated age] Derm: [warm], [dry] Head: [atraumatic], [normocephalic], [symmetric] Eyes: [EOMI], [no lid lag], [anicteric sclera] Mouth: [no lip lesion], [mucus membranes moist] Cardiovascular: [S1S2 reg], [no murmur] Lungs: [CTA bilateral], [no rhonchi, no rales] , [no accessory muscle use] Abdominal: [soft], [ nontender to palpation], [no guarding], [no appreciable organomegaly] Ext: [no gross muscle atrophy], [no edema], [no contractures] Neuro: [ CN II-XI grossly intact], [no focal neuro deficits] Psych: [Alert], [oriented], Assessment and Plan: Acute hypoxic respiratory failure due to below Sepsis secondary to community acquired pneumonia Procal 0.18. Completed 3 days of Azithromycin. Sputum and Blood Cx neg so far. Legionella Ag neg DuoNeb QID scheduled and Q2H PRN., Perforomist 20 mcg twice daily, Mucinex 1200 mg PO BID. Telemetry monitoring. Supplemental O2 to maintain O2 sat > 92%. Pulmonary on board. Acute asthma exacerbation: Bronchodilators as above. Pulmicort 0.5 mg INH BID. Perforomist 20 mcg INH BID. Prednisone 30 mg PO QD. Transaminitis: Unknown etiology. Improving. Normocytic anemia: Possibly iron def. anemia. No signs of active bleeding. Acute drop is likely dilutional. Hypothyroid: Synthroid 75 mcg PO QD. Bipolar and Schizophrenia: Latuda 20 mg PO QHS. Remeron 15 mg PO QHS. Sertraline 100 mg PO QD. Resolved: Lactic acidosis, Hyponatremia I have reviewed the following planning consultant notes: Pulmonology I have reviewed the results of the following tests: CBC, BMP I have ordered the following tests: CBC and BMP I have discussed the care of this patient with the following independent historian: RN, case management I have independently interpreted the following test below: As above I have discussed the management of this patient with the following physician: Pulmonology DVT ppx: Lovenox Code status: Full code Anticipated discharge place: Home with home care Anticipated discharge time: 24 to 48 hours Objective - Vital Signs Vital signs: Vital Signs Temp 97.9 F 02/22/25 12:35 Pulse 82 02/22/25 12:35 Resp 16 02/22/25 12:35 BP 151/84 02/22/25 12:35 Pulse Ox 93 L 04/21/25 12:35 FiO2 50 02/20/25 12:00 Intake & Output 02/21/25 02/22/25 02/22/25 18:59 06:59 18:59 Intake Total 720 1080 Output Total 635 Balance 85 1080 Weight 75.5 kg Intake: Oral 720 1080 Output: Urine 635 Other: Voiding Method Indwelling Catheter Bedpan Bedpan # Voids 1 5 # Bowel Movements 1 1 ABP, PAP, CO, CI - Last Documented Arterial Blood Pressure 148/93 - Labs CBC & Chem 7: 02/22/25 05:50 02/22/25 03:15 Labs: Abnormal Lab Results - Last 24 Hours (Table) 02/21/25 02/21/25 02/22/25 Range/Units 16:45 20:40 03:15 WBC (4.50-10.00) 10*3/uL Sodium 134 L (137-145) mmol/L Chloride 96 L (98-107) mmol/L BUN 29 H (7-17) mg/dL Glucose 149 H (74-99) mg/dL POC Glucose (mg/dL) 266 H 111 H (70-110) mg/dL 02/22/25 02/22/25 02/22/25 Range/Units 05:50 05:52 11:51 WBC 17.09 H (4.50-10.00) 10*3/uL Sodium (137-145) mmol/L Chloride (98-107) mmol/L BUN (7-17) mg/dL Glucose (74-99) mg/dL POC Glucose (mg/dL) 115 H 189 H (70-110) mg/dL
--- NOTE | 2025-02-22 15:33 | P.PN ---
Subjective Progress Note Date: 02/22/25 This is a 54-year-old female patient who has developmental delays and resides in a senior living. She also has a history of mild intermittent chronic bronchial asthma, hypothyroidism. She was brought into the emergency room today with a 2- day history of increasing shortness of breath cough and congestion. She did see a PCP and was initiated on steroids without much improvement. Chest x-ray reveals interstitial changes suspect bronchitis, chronic asthma, mild pulmonary congestion. White count 21.8. Hemoglobin 11.9. Platelets 444. Sodium 126. Potassium 3.7. Bicarb 27. BUN 14. Creatinine 0.61. Glucose 258. Lactic acid 6.1. AST 74. ALT 123. C-reactive protein 8.9. proBNP 2580. Viral screen negative for influenza A/B, RSV and COVID. She is seen today in consultation in the ER. She is currently sitting up on a stretcher. She is requiring BiPAP 12/6 and 50% FiO2 with O2 saturations in the mid 90s. She is alert. She is afebrile. Hemodynamically stable. The patient is seen today February 18, 2025 in follow-up in the intensive care unit. Pulmonary status continued to deteriorate and subsequently she was intubated and placed on mechanical ventilator approximately 6:30 last evening. She is currently in assist-control mode at a rate of 28, tidal volume 400, FiO2 50%, PEEP of 5. Morning arterial blood gases revealed a PaO2 of 93, pCO2 42 and a pH of 7.47. White count 9.4. Hemoglobin 9.7. Platelets 272. Sodium 139. Potassium 3.5. Bicarb 31. BUN 9. Creatinine 0.60. Glucose 183. Per minute. Lactated Ringer's at 130 mL/h. On DuoNeb inhalations every 4 hours, Pulmicort and Perforomist inhalations, IV Solu-Medrol. She is on antibiotics in the form of ceftriaxone and azithromycin. Procalcitonin was negative at 0.18. Lovenox for DVT prophylaxis. Sputum culture pending. The patient is seen today February 19, 2025 in follow-up in the intensive care unit. She remains intubated on the mechanical ventilator currently in assist- control mode at a rate of 28, tidal volume 400, FiO2 50% and a PEEP of 5. Morning blood gases revealed a PaO2 of 72, [id number] and a pH of 7.48. She has lactated Ringer's running at 75 mL/h. Propofol presently on hold for daily inte rruption of sedation. She is being fed with vital HP 25 mL/h which is goal. Chest x-ray reveals mild interstitial edema with slight improvement. Blood culture revealed no growth. Sputum culture reveals no growth. White count 13.1. Hemoglobin 10.2. Platelets 332. Sodium 139. Potassium 4.0. Bicarb 32. BUN 16. Creatinine 0.65. Glucose 215. She remains on DuoNeb and elations, Pulmicort and Perforomist inhalations, IV Solu-Medrol. Lovenox for DVT prophylaxis. Protonix for GI prophylaxis. The patient is seen today February 20, 2025 in follow-up in the intensive care unit. She was extubated yesterday. She is currently on BiPAP 12/5 and 50% FiO2. No IV fluids. Morning blood gases revealed a PaO2 of 206, pCO2 53 and a pH of 7.46. She remains on DuoNeb inhalations, Pulmicort and Perforomist inhalations, IV Solu-Medrol. NicoDerm patch in place. Chest x-ray reveals no change in the diffuse interstitial process consistent with pulmonary edema versus interstitial pneumonia. Culture revealed no growth. Blood culture revealed no growth. White count 15.6. Hemoglobin 11.0. Platelets 383. Sodium 140. Potassium 3.9. Bicarb 38. BUN 17. Creatinine 0.62. Glucose 150. She r emains on Lovenox for DVT prophylaxis. Protonix for GI prophylaxis. The patient is seen today February 21, 2025 in follow-up in the intensive care unit. She is awake and alert in no acute distress. Maintaining O2 saturations in the 90s on 6 L high flow nasal cannula. She did not utilize BiPAP last night. White count 16.8. Hemoglobin 12.9. Platelets 494. Sodium 137. Potassium 4.5. Bicarb 37. BUN 20. Creatinine 0.72. Glucose 171. She remains on DuoNeb inhalations, Pulmicort and Perforomist inhalations, Solu-Medrol. Lovenox for DVT prophylaxis. NicoDerm patch in place. Chest x-ray shows reduction in the diffuse mild interstitial process. On 02/22/2025, the patient is being seen for a follow-up. She is resting comfortably in bed and she is currently on 2 L of oxygen by nasal cannula. She wants to go back to the senior living. I took this patient off the oxygen and pulse ox remained in the order of 93%. She is recovering from acute hypoxic respiratory failure and COPD/asthma exacerbation. The patient has no other complaints. Tolerating her diet. Denies having any chest pain. She is from the senior living. White cell count of 17 with a hemoglobin 14.4 and a platelet co unt of 313. BUN is 29 with a creatinine of 0.6 and sodium levels at 134. She remains on DuoNeb updrafts. She remains on a combination of Perforomist and Pulmicort nebulized treatments twice a day and she is also on a prednisone burst taper currently is on 30 mg p.o. daily. She is on Lovenox 40 prophylaxis. She is on Synthroid, Latuda, Remeron and Zoloft. She is communicating. Denies having any other new complaints chest x-ray showed no evidence of any airspace disease. Objective - Vital Signs Vital signs: Vital Signs Temp 97.8 F 02/22/25 07:15 Pulse 72 02/22/25 09:04 Resp 17 02/22/25 08:28 BP 133/88 02/22/25 07:15 Pulse Ox 96 02/22/25 08:45 FiO2 50 02/20/25 12:00 Intake & Output 02/21/25 02/22/25 02/22/25 18:59 06:59 18:59 Intake Total 720 1080 Output Total 635 Balance 85 1080 Weight 75.5 kg Intake: Oral 720 1080 Output: Urine 635 Other: Voiding Method Indwelling Catheter Bedpan Bedpan # Voids 1 5 # Bowel Movements 1 1 ABP, PAP, CO, CI - Last Documented Arterial Blood Pressure 148/93 - Exam GENERAL EXAM: Alert 54-year-old female patient, on 2 L of oxygen by nasal cannula. No signs of any significant respiratory distress HEAD: Normocephalic. EYES: Normal reaction of pupils, equal size. NOSE: Clear with pink turbinates. THROAT: No erythema or exudates. NECK: No masses, no JVD. CHEST: No chest wall deformity. LUNGS: Equal air entry with bilateral scattered rhonchi. CVS: S1 and S2 normal with no audible murmur, regular rhythm. ABDOMEN: No hepatosplenomegaly, normal bowel sounds, no guarding or rigidity. SPINE: No scoliosis or deformity SKIN: No rashes CENTRAL NERVOUS SYSTEM: No focal deficits, tone is normal in all 4 extremities. EXTREMITIES: There is no peripheral edema. No clubbing, no cyanosis. Peripheral pulses are intact. - Labs CBC & Chem 7: 02/22/25 05:50 02/22/25 03:15 Labs: Abnormal Lab Results - Last 24 Hours (Table) 02/21/25 02/21/25 02/21/25 Range/Units 11:49 16:45 20:40 WBC (4.50-10.00) 10*3/uL Sodium (137-145) mmol/L Chloride (98-107) mmol/L BUN (7-17) mg/dL Glucose (74-99) mg/dL POC Glucose (mg/dL) 194 H 266 H 111 H (70-110) mg/dL 02/22/25 02/22/25 02/22/25 Range/Units 03:15 05:50 05:52 WBC 17.09 H (4.50-10.00) 10*3/uL Sodium 134 L (137-145) mmol/L Chloride 96 L (98-107) mmol/L BUN 29 H (7-17) mg/dL Glucose 149 H (74-99) mg/dL POC Glucose (mg/dL) 115 H (70-110) mg/dL Assessment and Plan Plan: Acute hypoxemic respiratory failure secondary to an acute exacerbation of mild intermittent chronic bronchial asthma, mild pulmonary vascular congestion requiring intubation and mechanical ventilatory support on 02/17/2025, extubated 02/19/2025. Currently on 2 L of oxygen by nasal cannula. Calm and comfortable. Limited bronchospasm wheezing is still present. Leukocytosis secondary to above Hyponatremia, improved Lactic acidosis, improved Transaminitis, will monitor History of mild intermittent chronic bronchial asthma Hypothyroidism History of developmental delay resides in a senior living Plan: Wean down the FiO2 as tolerated and the patient will be transition to room air oxygen Continue DuoNeb inhalations Continue Pulmicort and Perforomist inhalations Continue prednisone burst taper Monitor LFTs Increase mobility as tolerated Sodium level is improved Monitor the white cell count Lovenox for DVT prophylaxis Protonix for GI prophylaxis We will continue to follow Time with Patient: Greater than 30
[2025-02-22 16:38] LABS: Glucose,Whole Blood 203 mg/dL (70-110)
[2025-02-22 17:06] VITALS: BMI 26.9
[2025-02-22 20:03] LABS: Glucose,Whole Blood 185 mg/dL (70-110)
[2025-02-22] MEDS ORDERED: LORazepam 1 MG TAB PO PRN (21:59)
[2025-02-23 06:16] LABS: Glucose,Whole Blood 128 mg/dL (70-110)
[2025-02-23 08:15] LABS: BUN/Creat Ratio 31.89 Ratio (12.00-20.00); Blood Urea Nitrogen 28.7 mg/dL (9.0-27.0); Chloride 100 mmol/L (96-109); Glucose 170 mg/dL (70-110); Potassium 4.1 mmol/L (3.5-5.5); Sodium 140 mmol/L (135-145)
[2025-02-23 08:16] LABS: Basophils # (A) 0.06 X 10*3/uL (0.00-0.10); Basophils % (A) 0.5 %; Calcium 8.6 mg/dL (8.7-10.3); Carbon Dioxide 29.4 mmol/L (21.6-31.8); Eosinophils # (A) 0.32 X 10*3/uL (0.04-0.35); Eosinophils % (A) 2.5 %; HCT 41.3 % (37.2-50.0); Lymphocytes # (A) 2.82 X 10*3/uL (0.90-5.00); Lymphocytes % (A) 21.6 %; MCH 30.7 pg (27.0-32.0); MCHC 31.5 g/dL (32.0-37.0); MCV 97.6 FL (80.0-97.0); Mean Platelet Volume 9.5 FL (9.5-12.2); Monocytes # (A) 0.89 X 10*3/uL (0.20-1.00); Monocytes % (A) 6.8 %; NRBC Per 100 WBC 0 X 10*3/uL (0.00-0.01); Neutrophils # (A) 8.46 X 10*3/uL (1.80-7.70); Neutrophils % (A) 64.9 %; Platelet Count 464 X 10*3/uL (140-440); RBC 4.23 X 10*6/uL (4.10-5.60); RDW 13.5 % (11.5-14.5); WBC 13.03 X 10*3/uL (4.50-10.00)
[2025-02-23 12:00] LABS: Glucose,Whole Blood 172 mg/dL (70-110)
--- NOTE | 2025-02-23 13:24 | P.DS ---
Providers Date of admission: 02/17/25 14:29 Attending physician: Sunil Ortega MD Consults: 02/17/25 14:13 Consult Physician Routine Consulting Provider: Gianfranco Sim Consult Reason/Comments: asthma, pneumonia, sepsis, hypoxic resp failure Do you want consulting provider notified?: Yes Primary care physician: Radha [facility] Course: Discharge Diagnosis: Acute hypoxic respiratory failure secondary to community-acquired pneumonia Sepsis secondary to community-acquired pneumonia Acute asthma exacerbation Transaminitis Normocytic anemia Hypothyroidism Bipolar and schizophrenia Resolved lactic acidosis and hyponatremia Hospital Course: 54 year old F with PMH of developmental delay, Asthma, Bipolar/Schizophrenia, Hypothyroid presents to the ED for shortness of breath, cough productive of green-yellow sputum for the past 2 days. History is limited as patient is on continuous BiPAP 12/6 FiO2 50%. She reports feeling thirsty and would like the BiPAP off. She denies any nausea or vomiting, fever or chills, chest pain or lightheadedness. No changes in urination or bowel habits. In the ED she underwent extensive evaluation. BP 109/62, HR 91, T 98.1F, 68% on RA, RR 24. CBC, Coag panel, CMP significant for WBC 21.8, RBC 3.79, Hg 11.9, Hct 34.9, Plt 444, Na 126, Cl 87, glu 258, Ca 8.3, AST 74, ALT 123, alk phos 301. BNP 2580. CRP 8.9. VBG pH 7.33, pCO2 49. Lactic acid 6.1. COVID, RSV, Flu neg. CXR shows bilateral interstitial opacities. EKG shows sinus rhythm with no ST elevation. Patient is started on Rocephin/Azithromycin, continuous BiPAP, bronchodilators and admitted for ICU for further workup and management. Intubated overnight on 02/17. Extubated on 02/19. Pro-luis 0.18, completed course of Azithromycin and Rocephin discontinued. CT brain done for abnormal pupil size showing no acute process and deformity of the nasal bones bilaterally. Echo shows EF 55-60% with mild LVH. Given a dose of Lasix IV 02/19 and 02/20. Patient then required nasal cannula oxygen, was gradually weaned from IV steroids to oral prednisone. 02/23 patient was weaned off oxygen, did not qualify for home oxygen. Pulmonology cleared her for discharge, patient was provided with scripts for LABA LAMA ICS, prednisone taper, recommended to follow-up with pulmonology, PCP Patient seen and examined at bedside.[] General: [nontoxic], [no distress], [appears at stated age] Derm: [warm], [dry] Head: [atraumatic], [normocephalic], [symmetric] Eyes: [EOMI], [no lid lag], [anicteric sclera] Mouth: [no lip lesion], [mucus membranes moist] Cardiovascular: [S1S2 reg], [no murmur] Lungs: [CTA bilateral], [no rhonchi, no rales] , [no accessory muscle use] Abdominal: [soft], [ nontender to palpation], [no guarding], [no appreciable organomegaly] Ext: [no gross muscle atrophy], [no edema], [no contractures] Neuro: [ CN II-XI grossly intact], [no focal neuro deficits] Psych: [Alert], [oriented], A total of 35 minutes of time were spent preparing this complex discharge summary. Patient was discharged on 02/23/2025. Patient Condition at Discharge: Serious Plan - Discharge Summary Discharge Rx Participant: No New Discharge Prescriptions: New guaiFENesin [Mucinex] 1,200 mg PO Q12HR #30 tab predniSONE See Taper PO DAILY #18 tab Tiotropium 18 Mcg/Puff [Spiriva] 1 puff INHALATION DAILY #30 each Continue Nystatin 100,000 Unit/gm Powd [Mycostatin Powder] 1 applic TOPICAL BID PRN PRN Reason: YEAST INFECTION Albuterol Inhaler [Ventolin Hfa Inhaler] 2 puff INHALATION RT-Q4H PRN PRN Reason: Shortness Of Breath Mirtazapine [Remeron] 15 mg PO HS Lurasidone [Latuda] 20 mg PO W/SUPPER Cyclobenzaprine HCl 7.5 mg PO TID PRN PRN Reason: Muscle Spasm Phenyleph/Pramoxin/Glycr/W.pet [Preparation H Cream] 1 applic RECTAL DAILY PRN PRN Reason: Hemorrhoids Ibuprofen [Motrin] 800 mg PO Q8H PRN PRN Reason: Pain Or Fever > 100.5 Sertraline [Zoloft] 100 mg PO DAILY Levothyroxine Sodium [Synthroid] 75 mcg PO MOTUWETHFRSA Meloxicam [Mobic] 15 mg PO DAILY Fluticasone Propion/Salmeterol [Advair 250-50 Diskus] 1 puff INHALATION RT- BID Ergocalciferol (Vitamin D2) [Drisdol (50,000 Iu)] 1,250 mcg PO Q30D Discharge Medication List Albuterol Inhaler [Ventolin Hfa Inhaler] 2 puff INHALATION RT-Q4H PRN 02/17/25 [History] Cyclobenzaprine HCl 7.5 mg PO TID PRN 02/17/25 [History] Ergocalciferol (Vitamin D2) [Drisdol (50,000 Iu)] 1,250 mcg PO Q30D 02/17/25 [History] Fluticasone Propion/Salmeterol [Advair 250-50 Diskus] 1 puff INHALATION RT-BID 02/17/25 [History] Ibuprofen [Motrin] 800 mg PO Q8H PRN 02/17/25 [History] Levothyroxine Sodium [Synthroid] 75 mcg PO MOTUWETHFRSA 02/17/25 [History] Lurasidone [Latuda] 20 mg PO W/SUPPER 02/17/25 [History] Meloxicam [Mobic] 15 mg PO DAILY 02/17/25 [History] Mirtazapine [Remeron] 15 mg PO HS 02/17/25 [History] Nystatin 100,000 Unit/gm Powd [Mycostatin Powder] 1 applic TOPICAL BID PRN 02/17/25 [History] Phenyleph/Pramoxin/Glycr/W.pet [Preparation H Cream] 1 applic RECTAL DAILY PRN 02/17/25 [History] Sertraline [Zoloft] 100 mg PO DAILY 02/17/25 [History] Tiotropium 18 Mcg/Puff [Spiriva] 1 puff INHALATION DAILY #30 each 02/22/25 [Rx] guaiFENesin [Mucinex] 1,200 mg PO Q12HR #30 tab 02/22/25 [Rx] predniSONE See Taper PO DAILY #18 tab 02/22/25 [Rx] Follow up Appointment(s)/Referral(s): Radha Castro MD [Primary Care Provider] - 1-2 days [facility], [NON-STAFF] - As Needed Babita Mena MD [STAFF PHYSICIAN] - 1 Week Activity/Diet/Wound Care/Special Instructions: [facility] will transport home: [phone] Discharge Disposition: HOME WITH HOME HEALTH SERVICES
[2025-02-23 13:44] VITALS: BP 120/77; PULSE 90; RESP 18; TEMP 97.9
--- NOTE | 2025-02-23 16:10 | P.PN ---
Subjective Progress Note Date: 02/23/25 This is a 54-year-old female patient who has developmental delays and [facility] a jail. She also has a history of mild intermittent chronic bronchial asthma, hypothyroidism. She was brought into the emergency room today with a 2- day history of increasing shortness of breath cough and congestion. She did see a PCP and was initiated on steroids without much improvement. Chest x-ray reveals interstitial changes suspect bronchitis, chronic asthma, mild pulmonary congestion. White count 21.8. Hemoglobin 11.9. Platelets 444. Sodium 126. Potassium 3.7. Bicarb 27. BUN 14. Creatinine 0.61. Glucose 258. Lactic acid 6.1. AST 74. ALT 123. C-reactive protein 8.9. proBNP 2580. Viral screen negative for influenza A/B, RSV and COVID. She is seen today in consultation in the ER. She is currently sitting up on a stretcher. She is requiring BiPAP 12/6 and 50% FiO2 with O2 saturations in the mid 90s. She is alert. She is afebrile. Hemodynamically stable. The patient is seen today February 18, 2025 in follow-up in the intensive care unit. Pulmonary status continued to deteriorate and subsequently she was intubated and placed on mechanical ventilator approximately 6:30 last evening. She is currently in assist-control mode at a rate of 28, tidal volume 400, FiO2 50%, PEEP of 5. Morning arterial blood gases revealed a PaO2 of 93, pCO2 42 and a pH of 7.47. White count 9.4. Hemoglobin 9.7. Platelets 272. Sodium 139. Potassium 3.5. Bicarb 31. BUN 9. Creatinine 0.60. Glucose 183. Per minute. Lactated Ringer's at 130 mL/h. On DuoNeb inhalations every 4 hours, Pulmicort and Perforomist inhalations, IV Solu-Medrol. She is on antibiotics in the form of ceftriaxone and azithromycin. Procalcitonin was negative at 0.18. Lovenox for DVT prophylaxis. Sputum culture pending. The patient is seen today February 19, 2025 in follow-up in the intensive care unit. She remains intubated on the mechanical ventilator currently in assist- control mode at a rate of 28, tidal volume 400, FiO2 50% and a PEEP of 5. Morning blood gases revealed a PaO2 of 72, DAP230 and a pH of 7.48. She has lactated Ringer's running at 75 mL/h. Propofol presently on hold for daily inte rruption of sedation. She is being fed with vital HP 25 mL/h which is goal. Chest x-ray reveals mild interstitial edema with slight improvement. Blood culture revealed no growth. Sputum culture reveals no growth. White count 13.1. Hemoglobin 10.2. Platelets 332. Sodium 139. Potassium 4.0. Bicarb 32. BUN 16. Creatinine 0.65. Glucose 215. She remains on DuoNeb and elations, Pulmicort and Perforomist inhalations, IV Solu-Medrol. Lovenox for DVT prophylaxis. Protonix for GI prophylaxis. The patient is seen today February 20, 2025 in follow-up in the intensive care unit. She was extubated yesterday. She is currently on BiPAP 12/5 and 50% FiO2. No IV fluids. Morning blood gases revealed a PaO2 of 206, pCO2 53 and a pH of 7.46. She remains on DuoNeb inhalations, Pulmicort and Perforomist inhalations, IV Solu-Medrol. NicoDerm patch in place. Chest x-ray reveals no change in the diffuse interstitial process consistent with pulmonary edema versus interstitial pneumonia. Culture revealed no growth. Blood culture revealed no growth. White count 15.6. Hemoglobin 11.0. Platelets 383. Sodium 140. Potassium 3.9. Bicarb 38. BUN 17. Creatinine 0.62. Glucose 150. She r emains on Lovenox for DVT prophylaxis. Protonix for GI prophylaxis. The patient is seen today February 21, 2025 in follow-up in the intensive care unit. She is awake and alert in no acute distress. Maintaining O2 saturations in the 90s on 6 L high flow nasal cannula. She did not utilize BiPAP last night. White count 16.8. Hemoglobin 12.9. Platelets 494. Sodium 137. Potassium 4.5. Bicarb 37. BUN 20. Creatinine 0.72. Glucose 171. She remains on DuoNeb inhalations, Pulmicort and Perforomist inhalations, Solu-Medrol. Lovenox for DVT prophylaxis. NicoDerm patch in place. Chest x-ray shows reduction in the diffuse mild interstitial process. On 02/22/2025, the patient is being seen for a follow-up. She is resting comfortably in bed and she is currently on 2 L of oxygen by nasal cannula. She wants to go back to the jail. I took this patient off the oxygen and pulse ox remained in the order of 93%. She is recovering from acute hypoxic respiratory failure and COPD/asthma exacerbation. The patient has no other complaints. Tolerating her diet. Denies having any chest pain. She is from the jail. White cell count of 17 with a hemoglobin 14.4 and a platelet co unt of 313. BUN is 29 with a creatinine of 0.6 and sodium levels at 134. She remains on DuoNeb updrafts. She remains on a combination of Perforomist and Pulmicort nebulized treatments twice a day and she is also on a prednisone burst taper currently is on 30 mg p.o. daily. She is on Lovenox 40 prophylaxis. She is on Synthroid, Latuda, Remeron and Zoloft. She is communicating. Denies having any other new complaints chest x-ray showed no evidence of any airspace disease. On 02/23/2025, the patient is being seen for a follow-up. Doing well. She is currently on room air oxygen with a pulse ox of 94%. No specific complaints. She remains calm and comfortable. No significant respiratory distress. No cough or sputum production. No chest tightness or wheezing. White cell count is 15 with a hemoglobin 13 and a platelet count of 464. BUN is 28 with a creatinine of 0.9 and a sodium levels at 140 with a potassium level of 4.1. No other significant events overnight. The patient lives in a jail. Objective - Vital Signs Vital signs: Vital Signs Temp 97.6 F 02/23/25 06:55 Pulse 80 02/23/25 08:48 Resp 16 02/23/25 06:55 BP 113/75 02/23/25 06:55 Pulse Ox 92 L 02/23/25 08:29 FiO2 50 02/20/25 12:00 Intake & Output 02/22/25 02/23/25 02/23/25 18:59 06:59 18:59 Weight 75.5 kg 75 kg Other: Voiding Method Bedpan Bedside Commode Bedside Commode # Voids 5 3 # Bowel Movements 2 1 ABP, PAP, CO, CI - Last Documented Arterial Blood Pressure 148/93 - Exam GENERAL EXAM: Alert 54-year-old female patient, on room air oxygen by nasal cannula. No signs of any significant respiratory distress HEAD: Normocephalic. EYES: Normal reaction of pupils, equal size. NOSE: Clear with pink turbinates. THROAT: No erythema or exudates. NECK: No masses, no JVD. CHEST: No chest wall deformity. LUNGS: Equal air entry with bilateral scattered rhonchi. CVS: S1 and S2 normal with no audible murmur, regular rhythm. ABDOMEN: No hepatosplenomegaly, normal bowel sounds, no guarding or rigidity. SPINE: No scoliosis or deformity SKIN: No rashes CENTRAL NERVOUS SYSTEM: No focal deficits, tone is normal in all 4 extremities. EXTREMITIES: There is no peripheral edema. No clubbing, no cyanosis. Peripheral pulses are intact. - Labs CBC & Chem 7: 02/23/25 03:37 02/23/25 03:37 Labs: Abnormal Lab Results - Last 24 Hours (Table) 02/22/25 02/22/25 02/22/25 Range/Units 11:51 16:37 20:02 WBC (4.50-10.00) X 10*3/uL MCV (80.0-97.0) FL MCHC (32.0-37.0) g/dL Plt Count (140-440) X 10*3/uL Immature Gran # (0.00-0.04) X 10*3/uL Neutrophils # (1.80-7.70) X 10*3/uL BUN (9.0-27.0) mg/dL BUN/Creatinine Ratio (12.00-20.00) Ratio Glucose (70-110) mg/dL POC Glucose (mg/dL) 189 H 203 H 185 H (70-110) mg/dL Calcium (8.7-10.3) mg/dL 02/23/25 02/23/25 02/23/25 Range/Units 03:37 03:37 06:15 WBC 13.03 H (4.50-10.00) X 10*3/uL MCV 97.6 H (80.0-97.0) FL MCHC 31.5 L (32.0-37.0) g/dL Plt Count 464 H (140-440) X 10*3/uL Immature Gran # 0.48 H (0.00-0.04) X 10*3/uL Neutrophils # 8.46 H (1.80-7.70) X 10*3/uL BUN 28.7 H (9.0-27.0) mg/dL BUN/Creatinine Ratio 31.89 H (12.00-20.00) Ratio Glucose 170 H (70-110) mg/dL POC Glucose (mg/dL) 128 H (70-110) mg/dL Calcium 8.6 L (8.7-10.3) mg/dL Microbiology - Last 24 Hours (Table) 02/17/25 14:08 Blood Culture - Final Blood Assessment and Plan Plan: Acute hypoxemic respiratory failure secondary to an acute exacerbation of mild intermittent chronic bronchial asthma, mild pulmonary vascular congestion requir ing intubation and mechanical ventilatory support on 02/17/2025, extubated 02/19/2025. Currently on room air oxygen by nasal cannula. Calm and comfortable. No significant bronchospasm or wheezing. Leukocytosis secondary to above Hyponatremia, improved Lactic acidosis, improved Transaminitis, will monitor History of mild intermittent chronic bronchial asthma Hypothyroidism History of developmental delay resides in a jail Plan: Patient is currently on room air oxygen Continue DuoNeb inhalations Continue Pulmicort and Perforomist inhalations Continue prednisone burst taper at the time of discharge Monitor LFTs Increase mobility as tolerated Sodium level is improved Monitor the white cell count Lovenox for DVT prophylaxis Protonix for GI prophylaxis The patient is to go back to the jail today.
== END 2025-02-23 15:18 | disposition home health service (06) | DRG 720 ==
LOC: EC 12:53 → 2SICU 14:29 → 4SSUR 02-21 12:13
PROVIDERS: ADMIT Internal Medicine; ATTEND Internal Medicine
PROC: 0BH17EZ Insertion of Endotracheal Airway into Trachea, Via Natural or Artificial Opening (ICD-10-PCS; principal; 2025-02-17)
PROC: 5A1945Z Respiratory Ventilation, 24-96 Consecutive Hours (ICD-10-PCS; principal; 2025-02-17)
PROC: 5A09357 Assistance with Respiratory Ventilation, Less than 24 Consecutive Hours, Continuous Positive Airway Pressure (ICD-10-PCS; 2025-02-17)
PROC: 4A133B1 Monitoring of Arterial Pressure, Peripheral, Percutaneous Approach (ICD-10-PCS; 2025-02-17)
PROC: 03HY32Z Insertion of Monitoring Device into Upper Artery, Percutaneous Approach (ICD-10-PCS; 2025-02-17)
PROC: 4A133J1 Monitoring of Arterial Pulse, Peripheral, Percutaneous Approach (ICD-10-PCS; 2025-02-17)
PROC: 0DH67UZ Insertion of Feeding Device into Stomach, Via Natural or Artificial Opening (ICD-10-PCS; 2025-02-17)
PROC: 3E0G76Z Introduction of Nutritional Substance into Upper GI, Via Natural or Artificial Opening (ICD-10-PCS; 2025-02-17)
DX: A41.9 Sepsis, unspecified organism (principal); D64.9 Anemia, unspecified; D75.839 Thrombocytosis, unspecified; E03.9 Hypothyroidism, unspecified; E86.0 Dehydration; E87.1 Hypo-osmolality and hyponatremia; E87.20 Acidosis, unspecified; F20.9 Schizophrenia, unspecified; F31.9 Bipolar disorder, unspecified; J18.9 Pneumonia, unspecified organism; J44.0 Chronic obstructive pulmonary disease with (acute) lower respiratory infection; J44.1 Chronic obstructive pulmonary disease with (acute) exacerbation; J96.02 Acute respiratory failure with hypercapnia; J96.01 Acute respiratory failure with hypoxia; J45.21 Mild intermittent asthma with (acute) exacerbation; Z87.891 Personal history of nicotine dependence; Z79.1 Long term (current) use of non-steroidal anti-inflammatories (NSAID); Z79.51 Long term (current) use of inhaled steroids; Z79.890 Hormone replacement therapy; Z79.899 Other long term (current) drug therapy; Z78.1 Physical restraint status
CPT/HCPCS: 36415; 36600; 70450; 71045; 80048; 80053; 81003; 82803; 82805; 83036; 83605; 83735; 83880; 84100; 84132; 84145; 84450; 84460; 85025; 85027; 86140; 87040; 87070; 87205; 87449; 87636; 93005; 93306; 94002; 94003; 94640; 94660; 94760; 96365; 96367; 96375; 99291